=== PATIENT | female | born 1960 | race African-American/Black ===

== ENCOUNTER 2020-08-24 09:35 | Outpatient (CLI) | payer OTHER, SELFPAY ==
[2020-08-24 10:11] LABS: Basophils Percent Auto 0.4 % (0.2-1.2); Eosinophils Absolute Auto 0.1 K/mm3 (0-0.3); Hematocrit 39.9 % (37.0-47.0); Hemoglobin 12.9 g/dL (12.0-15.0); Immature Granulocyte Absolute 0.02 K/mm3 (0.00-0.031); Immature Granulocyte Percent A 0.3 % (0-0.5); Lymphocytes Absolute Auto 2.27 K/mm3 (0.9-3.2); Lymphocytes Percent Auto 32.9 % (18.3-44.2); Mean Corpuscular HGB Conc 32.3 g/dl (32-36); Mean Corpuscular Hemoglobin 29.8 pg (26-34); Mean Corpuscular Volume 92.1 fl (80-100); Monocytes Absolute Auto 0.2 K/mm3 (0.1-0.6); Monocytes Percent Auto 3.2 % (2.6-8.5); Neutrophils Absolute Auto 4.2 K/mm3 (1.3-6.7); Neutrophils Percent Auto 61.2 % (45.5-73.1); Platelet Count Result 324 k/mm3 (150-375); Red Blood Count 4.33 M/mm3 (4.2-5.4); Red Cell Distribution Width 12.1 % (11.5-14.5); White Blood Count 6.9 K/mm3 (4.5-10.0)
[2020-08-24 10:25] LABS: Hemoglobin A1C 6.1 % (<5.7)
[2020-08-24 10:26] LABS: Alanine Aminotransferase 12 U/L (4-35); Albumin Level 4.4 g/dL (3.5-5.1); Alkaline Phosphatase 70 U/L (38-126); Anion Gap 5 mmol/L (8-16); Aspartate Amino Transferase 29 U/L (14-36); Bilirubin,Total 0.8 mg/dL (0.2-1.3); Blood Urea Nitrogen 13 mg/dL (7-17); Calcium 9.4 mg/dL (8.4-10.2); Carbon Dioxide 31 mmol/L (22-30); Chloride 102 mmol/L (98-107); Cholesterol 237 mg/dL (0-200); Estimated Glomerular Filt Rate > 60; Glucose 129 mg/dL (65-105); HDL Direct 79 mg/dL; Potassium 3.4 mmol/L (3.4-5.0); Sodium 138 mmol/L (137-145); Triglycerides 131 mg/dL (<150)
[2020-08-24 10:37] LABS: LDL Cholesterol Direct 110 mg/dL
[2020-08-24 10:38] LABS: Creatinine Urine 261.4 mg/dL
[2020-08-24 10:45] LABS: MALB Creatinine Ratio 3.1 mg/g (0-30); Microalbumin Urine Random 8.2 mg/L (0-16.7)
[2020-08-24 10:57] LABS: Vitamin D 25 Hydroxy 38.5 ng/mL
== END 2020-08-24 09:36 | disposition home or self-care (01) ==
LOC: ANHLAB 09:40
PROVIDERS: PCP Nurse Practitioner; Visit Provider Nurse Practitioner
DX: I10 Essential (primary) hypertension (principal); E11.9 Type 2 diabetes mellitus without complications; E55.9 Vitamin D deficiency, unspecified; E78.5 Hyperlipidemia, unspecified
CPT/HCPCS: 36415; 80053; 80061; 82043; 82306; 83036; 85025

== ENCOUNTER 2021-04-04 02:36 | Day surgery (SDC) | payer OTHER, SELFPAY ==
[2021-03-30 13:37] VITALS: BMI 24.3
--- NOTE | 2021-04-04 07:29 | WPDANESEPPF ---
Anes - Initial Pre Proc Eval Procedure: Operation Date: 04/04/21 11:45 Proposed Procedures p Screening Colonoscopy - Esteban Calderon MD Date/Time: 04/04/21 07:29 Surgeon: Esteban Calderon MD Pre Op Diagnosis: neoplasm screening Patient Data Age: 60 Gender: F Height: 1.68 m Weight: 68.5 kg Allergies Allergy/AdvReac Type Severity Reaction Status Date / Time pineapple Allergy Severe HIVES/ANAPH Verified 03/30/21 13:38 YLAXIS SEA-SALTWATER SEAFOOD Allergy Severe ANAPHYLAXIS Uncoded 03/30/21 13:38 Home Medications Medication Instructions Recorded Confirmed Type aspirin 81 mg tablet,delayed 81 mg PO DAILY 07/27/19 03/30/21 History release ferrous sulfate 325 mg (65 mg 325 mg PO DAILY 07/27/19 03/30/21 History iron) tablet atorvastatin 40 mg tablet 40 mg PO DAILY #90 tablet 03/13/20 03/30/21 Rx ascorbic acid (vitamin C) 500 mg 500 mg PO DAILY 08/16/20 03/30/21 History tablet blood sugar diagnostic #100 ea 08/16/20 03/14/21 Rx blood-glucose meter #1 ea 08/16/20 03/14/21 Rx cholecalciferol (vitamin D3) 50 50 mcg PO DAILY 08/16/20 03/30/21 History mcg (2,000 unit) capsule lancets 28 gauge #100 ea 08/16/20 03/14/21 Rx insulin glargine 100 unit/mL (3 See Rx Instructions .ROUTE 10/10/20 03/30/21 Rx mL) subcutaneous pen .COMPLEX #15 ml lisinopril 10 1 tablet PO DAILY #90 tablet 12/22/20 03/30/21 Rx mg-hydrochlorothiazide 12.5 mg tablet Patient hx anesthesia problems: none Family hx anesthesia problems: none PMFSH Past Medical History Medical History Anemia (~1979) HTN (hypertension) (~2009) Hyperlipidemia (~2014) Type 2 diabetes mellitus (~2014) Family History Family History Sibling Diabetes mellitus Colon polyp Mother Hypertension Cardiovascular disease Social History Social History Smoking status: Never smoker Alcohol intake: never Substance use: never Substance use type: does not use Living arrangements: with family Additional occupation/education comments: [employer] Gender identity (if verbalized by the patient): Female Spiritual care concerns: No Agree to blood products: Yes Anes - Eval Final PreProcedure Day of Procedure 04/04/21 07:29 Patient weight: normal Heart: regular rate and rhythm Lungs: clear to auscultation and normal air movement Airway: Mallampati scale class II Neurological: alert and oriented Last oral intake: >/= 8 hours ASA classification: III Emergent: no Anesthetic plan: proceed Anesthesia type and monitoring: general GIVS and standard monitoring Informed Consent: The patient's anesthetic plan and its attendant risks and benefits were discussed with the patient/family/POA. Questions were solicited and answers provided to the satisfaction of the patient/family/POA.
[2021-04-04 10:54] VITALS: BP 165/78; PULSE 64; RESP 16; TEMP 35.8; O2SAT 99; BMI 23.7
[2021-04-04] MEDS: LACTATED RINGERS 1,000 ML 150 ML IV CONT (11:05)
[2021-04-04 11:18] LABS: Glucose Point of Care 86 mg/dl (65-105)
--- NOTE | 2021-04-04 11:35 | PM.HPGS ---
History of Present Illness History of Present Illness Consent: Risks, benefits, and alternatives have been discussed and questions answered. Patient agrees to proceed with procedure. Chief complaint: neoplasm screening Narrative: Vita Chu is a 60 year old female with colon polyp 5 years ago. Review of Systems Constitutional: Constitutional: Denies headache(s) and Denies weakness Eyes: Eyes: Denies blurry vision ENT: Reports Normal hearing present, Denies headache(s) and Denies neck pain Cardiovascular: Cardiovascular: Denies chest pain and Denies dyspnea Respiratory: Respiratory: Denies dyspnea Gastrointestinal: Gastrointestinal: Reports no additional gastrointestinal complaints Genitourinary: Genitourinary: Denies dysuria Musculoskeletal: Musculoskeletal: Denies neck pain Integumentary/Breasts: Skin/Breast: Denies dry skin Neurologic: Reports Normal hearing present, Denies headache(s) and Denies weakness Psychiatric: Psychiatric: Denies anxiety Endocrine: Endocrine: Denies change in body appearance Hematologic/Lymphatic: Hematologic/Lymphatic: Denies easy bleeding Allergic/Immunologic: Allergic/Immunologic: Denies urticaria PMFSH Past Medical History Medical History (Updated 04/04/21 @ 11:36 by Esteban Calderon MD) Anemia (~1979) Colon cancer screening HTN (hypertension) (~2009) Hyperlipidemia (~2014) Type 2 diabetes mellitus (~2014) Family History Family History Sibling Diabetes mellitus Colon polyp Mother Hypertension Cardiovascular disease Social History Social History Smoking status: Never smoker Alcohol intake: never Substance use: never Substance use type: does not use Living arrangements: with family Additional occupation/education comments: [employer] Gender identity (if verbalized by the patient): Female Spiritual care concerns: No Agree to blood products: Yes Meds Home Medications and Allergies Home Medications Medication Instructions Recorded Confirmed Type aspirin 81 mg tablet,delayed 81 mg PO DAILY 07/27/19 03/30/21 History release ferrous sulfate 325 mg (65 mg 325 mg PO DAILY 07/27/19 03/30/21 History iron) tablet atorvastatin 40 mg tablet 40 mg PO DAILY #90 tablet 03/13/20 03/30/21 Rx ascorbic acid (vitamin C) 500 mg 500 mg PO DAILY 08/16/20 03/30/21 History tablet blood sugar diagnostic #100 ea 08/16/20 03/14/21 Rx blood-glucose meter #1 ea 08/16/20 03/14/21 Rx cholecalciferol (vitamin D3) 50 50 mcg PO DAILY 08/16/20 03/30/21 History mcg (2,000 unit) capsule lancets 28 gauge #100 ea 08/16/20 03/14/21 Rx insulin glargine 100 unit/mL (3 See Rx Instructions .ROUTE 10/10/20 03/30/21 Rx mL) subcutaneous pen .COMPLEX #15 ml lisinopril 10 1 tablet PO DAILY #90 tablet 12/22/20 03/30/21 Rx mg-hydrochlorothiazide 12.5 mg tablet Allergies Allergy/AdvReac Type Severity Reaction Status Date / Time pineapple Allergy Severe HIVES/ANAPH Verified 03/30/21 13:38 YLAXIS SEA-SALTWATER SEAFOOD Allergy Severe ANAPHYLAXIS Uncoded 03/30/21 13:38 Vital Signs Vital Signs - 24 hr 04/04/21 10:54 Temperature 96.5 F L Pulse Rate 64 Respiratory Rate 16 Blood Pressure 165/78 H Pulse Oximetry 99 Exam Const: General: comfortable and no acute distress HENMT: General nose exam: Normal nares present Eyes: General: appearance normal, both eyes and all related structures Neck: Neck: no JVD Resp: Auscultation: clear to auscultation bilaterally Cardio: Rate: regular rate Rhythm: regular rhythm GI: Inspection: non-distended GI Palp: Yes Soft to palpation Skin: General skin exam: normal color Neuro: General: gait normal Speech: normal speech Extrem: General: normal to inspection Psych: Mental Status: mental status grossly normal Assessment and Plan Assessment and plan (1)
[2021-04-04 12:00] VITALS: BP 118/80; PULSE 62; RESP 16; O2SAT 100
[2021-04-04 12:10] VITALS: BP 135/83; PULSE 52; RESP 16; O2SAT 100
[2021-04-04 12:19] VITALS: BP 140/77; PULSE 54; RESP 16; O2SAT 100
== END 2021-04-04 12:28 | disposition home or self-care (01) ==
PROVIDERS: PCP Nurse Practitioner; Visit Provider Internal Medicine Gastroenterology
PROC: 0DJD8ZZ Inspection of Lower Intestinal Tract, Via Natural or Artificial Opening Endoscopic (ICD-10-PCS; CPT 45378; principal; 2021-04-04 11:45)
DX: Z12.11 Encounter for screening for malignant neoplasm of colon (principal); K57.30 Diverticulosis of large intestine without perforation or abscess without bleeding; K64.8 Other hemorrhoids; Z86.010 Personal history of colon polyps; E11.9 Type 2 diabetes mellitus without complications; I10 Essential (primary) hypertension; E78.5 Hyperlipidemia, unspecified; D64.9 Anemia, unspecified; Z79.82 Long term (current) use of aspirin; Z79.4 Long term (current) use of insulin
CPT/HCPCS: 45378; 82948; J2001; J2704; J7120

== ENCOUNTER 2021-04-18 08:55 | Outpatient (CLI) | payer OTHER, SELFPAY ==
--- NOTE | ~2021-04-18 | DEXA_ITS ---
Bone Density Report Name: Vita Kiser Age: 60 Sex: Female Ethnicity: Black Date of : 1960 Indication: postmenopausal; Referring Provider: Shefali Du Study: Bone densitometry was performed. Exam Date: April 18, 2021 Accession number: [id number] Bone Density: Region BMD T-score Z-score Classification AP Spine (L1-L4) 1.018 -0.3 0.6 Normal Femoral Neck (Left) 0.697 -1.4 -0.6 Osteopenia Total Hip (Left) 0.870 -0.6 -0.2 Normal Total Hip Bilateral Avg 0.835 -0.9 -0.4 Normal Femoral Neck (Right) 0.692 -1.4 -0.7 Osteopenia Total Hip (Right) 0.799 -1.2 -0.6 Osteopenia World Health Organization criteria for BMD impression classify patients as: Normal (T-score at or above -1.0), Osteopenia (T-score between -1.0 and -2.5), or Osteoporosis (T-score at or below -2.5). 10-year Fracture Risk(1): Major Osteoporotic Fracture 3.7% Hip Fracture 0.3% Reported Risk Factors: [place] ([place]), Neck BMD=0.692, BMI=24.7 (1) FRAX(R) Version 3.08. Fracture probability calculated for an untreated patient. Fracture probability may be lower if the patient has received treatment. Clinical Information Provided by Patient: Has used the following medications: Vitamin D, Calcium Patient maximum height was 66 Menopause Age: 46 No regular weight bearing exercise Drinks caffeinated beverages Onset of menses at age 12 Number of children 2 Impression: The patient has low bone mass, based on the Left Femoral Neck T-score. The patient has an estimated ten-year risk of hip fracture of 0.3% and an estimated ten-year risk of major fracture of 3.7%, based on the WHO FRAX algorithm. Discussion: BONE DENSITY IS LOW AT ONE OR MORE SKELETAL SITES. This patient's lowest T-score is low at one or more skeletal sites. It meets the World Health Organization's (WHO) criteria for ?low bone mass? (T-score between -1.0 and -2.5). The patient's 10-year risk of fracture as calculated by FRAX is less than the threshold where pharmacological therapy is recommended by the National Osteoporosis Foundation (NOF). However, all treatment decisions require clinical judgment and consideration of individual patient factors, including patient preferences, comorbidities, previous drug use, risk factors not captured in the FRAX model (e.g., frailty, falls, vitamin D deficiency, increased bone turnover, interval significant decline in bone density) and possible under or overestimation of fracture risk by FRAX. The patient should follow a healthful lifestyle (good nutrition with adequate calcium and vitamin D, and appropriate weight-bearing exercise). Follow-Up: Consider repeating this study in 2 to 3 years to reassess this patient's status, or sooner if there is some new clinical indication. Reported by: KYLER on 04/18/2021 9:26:00 AM.
--- NOTE | ~2021-04-18 | MM_ITS ---
EXAMINATION: MM screening leon BI w darryl HISTORY: Screening TECHNIQUE: Craniocaudal and mediolateral oblique 3-D tomosynthesis images were obtained and synthetic 2-D images were generated. CAD analysis was submitted and interpreted. COMPARISON: No prior mammogram is available for comparison at this institution. BREAST PARENCHYMAL COMPOSITION: There are scattered areas of fibroglandular density. FINDINGS: There are masses in the upper outer quadrant of the right breast involving the anterior and posterior thirds of the breasts. There are benign bilateral breast calcifications. There are no susp icious masses, calcifications or architectural distortion in the left breast to suggest malignancy. IMPRESSION: 1. Right breast masses, upper outer quadrant. 2. Recommend comparison to previous outside mammograms. BI-RADS Category 0: Incomplete: Needs additional imaging evaluation. Reviewed, dictated and finalized at location A.
== END 2021-04-18 08:56 | disposition home or self-care (01) ==
PROVIDERS: PCP Nurse Practitioner; Visit Provider Nurse Practitioner
DX: Z12.31 Encounter for screening mammogram for malignant neoplasm of breast (principal); Z78.0 Asymptomatic menopausal state; R92.8 Other abnormal and inconclusive findings on diagnostic imaging of breast; M85.852 Other specified disorders of bone density and structure, left thigh; M85.851 Other specified disorders of bone density and structure, right thigh
CPT/HCPCS: 77063; 77067; 77080

== ENCOUNTER 2022-05-02 08:49 | Outpatient (CLI) | payer OTHER, SELFPAY ==
--- NOTE | 2022-05-02 09:10 | EST_ITS ---
Patient Info Name: Vita Chu Age: 61 years : 1960 Gender: Female Ht: 66 in Wt: 152 lbs BSA: 1.80 m2 Exam Date: 05/02/2022 10:13 AM Exam Location: [facility] Stress Patient Status: Outpatient Admit Date: 05/02/2022 Staff Ordering Physician: Shefali Du NP Attending Provider: Shefali Du NP Exercise Technologist: Anoop Nowak RDCS, RT Exercise Physician: Marcus Sunshine DO Exam Type: CA stress test treadmill Study Info A treadmill exercise stress test was performed. Summary 1. 1. Negative Lexx exercise stress test for ischemic ST changes by ECG criteria. 2. 2. Poor functional capacity, achieving 4.7 METs of workload. 3. 3. Rapid HR response to exercise. 4. 4. Baseline hypertension. 5. 5. Appropriate HR recovery at 1 minute post exercise. 6. 6. No imaging with stress testing. 7. 7. Patient informed of the above results. Protocol: Lexx Stress ECG Details Stage: REST Duration (min): 2 min : 19 sec Speed (mph): 0.0 Grade (%): 0 HR (bpm): 79 SBP (mmHg): 164 DBP (mmHg): 93 METS: --- Stage: REST Duration (min): 2 min : 41 sec Speed (mph): 0.0 Grade (%): 0 HR (bpm): 82 SBP (mmHg): 164 DBP (mmHg): 93 METS: --- Stage: STAGE 1 Duration (min): 1 min : 0 sec Speed (mph): 1.7 Grade (%): 10 HR (bpm): 121 SBP (mmHg): 164 DBP (mmHg): 93 METS: --- Stage: STAGE 1 Duration (min): 2 min : 0 sec Speed (mph): 1.7 Grade (%): 10 HR (bpm): 142 SBP (mmHg): 164 DBP (mmHg): 93 METS: --- Stage: STAGE 1 Duration (min): 2 min : 59 sec Speed (mph): 1.7 Grade (%): 10 HR (bpm): 150 SBP (mmHg): 164 DBP (mmHg): 93 METS: --- Stage: RECOVERY Duration (min): 1 min : 0 sec Speed (mph): 0.0 Grade (%): 0 HR (bpm): 123 SBP (mmHg): 183 DBP (mmHg): 90 METS: --- Stage: RECOVERY Duration (min): 2 min : 0 sec Speed (mph): 0.0 Grade (%): 0 HR (bpm): 98 SBP (mmHg): 183 DBP (mmHg): 90 METS: --- Stage: RECOVERY Duration (min): 3 min : 0 sec Speed (mph): 0.0 Grade (%): 0 HR (bpm): 92 SBP (mmHg): 183 DBP (mmHg): 90 METS: --- Stage: RECOVERY Duration (min): 3 min : 25 sec Speed (mph): 0.0 Grade (%): 0 HR (bpm): 93 SBP (mmHg): 178 DBP (mmHg): 91 METS: --- Rest HR: 82 bpm Peak HR: 152 bpm Rest Sys BP: 164 mmHg Peak Sys BP: 183 mmHg Max Pred HR: 157 bpm % Max Pred HR: 97 % Target HR: 133 bpm Max RPP: 27,816 bpm*mmHg Jacinto Score: -47 Termination Reason: Reached target heart rate or workload Cardiac Symptoms: Shortness of breath Max ST Seg Deviation: 9.90 mm Total Time: 2 min : 59 sec Rest López BP: 93 mmHg Peak López BP: 90 mmHg Angina Score: None Total METS: 4.7 Resting ECG Sinus rhythm. Stress ECG No ST changes. Arrhythmias None. Report Signatures
[2022-05-02 09:48] LABS: Basophils Percent Auto 0.5 % (0.2-1.2); Eosinophils Absolute Auto 0.2 K/mm3 (0-0.3); Eosinophils Percent Auto 2.2 % (0-4.4); Hematocrit 37.7 % (37.0-47.0); Immature Granulocyte Absolute 0.02 K/mm3 (0.00-0.031); Immature Granulocyte Percent A 0.2 % (0-0.5); Lymphocytes Absolute Auto 1.96 K/mm3 (0.9-3.2); Lymphocytes Percent Auto 23.7 % (18.3-44.2); Mean Corpuscular HGB Conc 31.8 g/dl (32-36); Mean Corpuscular Hemoglobin 29.8 pg (26-34); Mean Corpuscular Volume 93.5 fl (80-100); Mean Platelet Volume 10.7 fl (7.4-10.4); Monocytes Absolute Auto 0.3 K/mm3 (0.1-0.6); Neutrophils Absolute Auto 5.7 K/mm3 (1.3-6.7); Neutrophils Percent Auto 69.4 % (45.5-73.1); Platelet Count Result 319 k/mm3 (150-375); Red Blood Count 4.03 M/mm3 (4.2-5.4); Red Cell Distribution Width 11.7 % (11.5-14.5); White Blood Count 8.3 K/mm3 (4.5-10.0)
[2022-05-02 10:25] LABS: LDL Cholesterol Direct 129 mg/dL
[2022-05-02 10:39] LABS: Alanine Aminotransferase 13 U/L (6-35); Albumin Level 4.7 g/dL (3.5-5.1); Alkaline Phosphatase 105 U/L (38-126); Aspartate Amino Transferase 22 U/L (14-36); Bilirubin,Total 0.6 mg/dL (0.2-1.3); Blood Urea Nitrogen 17 mg/dL (7-17); Calcium 9.4 mg/dL (8.4-10.2); Carbon Dioxide 26 mmol/L (22-30); Cholesterol 276 mg/dL (0-200); Estimated Glomerular Filt Rate > 60; Glucose 307 mg/dL (65-110); HDL Direct 58 mg/dL; Triglycerides 313 mg/dL (<150)
[2022-05-02 10:53] LABS: Anion Gap 11 mmol/L (8-16); Chloride 100 mmol/L (98-107); Potassium 4.2 mmol/L (3.4-5.0); Sodium 137 mmol/L (137-145)
== END 2022-05-02 08:50 | disposition home or self-care (01) ==
PROVIDERS: PCP Family Medicine; Visit Provider Nurse Practitioner
DX: E11.9 Type 2 diabetes mellitus without complications (principal); E78.5 Hyperlipidemia, unspecified; R07.89 Other chest pain
CPT/HCPCS: 36415; 80053; 80061; 83036; 85025; 93017

== ENCOUNTER 2022-06-26 08:42 | Outpatient (CLI) | payer OTHER, SELFPAY ==
--- NOTE | ~2022-06-26 | MM_ITS ---
EXAMINATION: MM screening leon BI w darryl HISTORY: Screening mammogram TECHNIQUE: Craniocaudal and mediolateral oblique 3-D tomosynthesis images were obtained and synthetic 2-D images were generated. CAD analysis was submitted and interpreted. COMPARISON: 04/18/2021, 07/25/2016 BREAST PARENCHYMAL COMPOSITION: There are scattered areas of fibroglandular density. FINDINGS: No suspicious mass, calcification, or architectural distortion are identified in either osvaldo ast to suggest malignancy. There has been no suspicious interval change. IMPRESSION: 1. No mammographic evidence of malignancy. 2. Recommend routine screening mammography in one year. BI-RADS Category 1: Negative Reviewed, dictated and finalized at location A. EGE SCOUTING COORDINATOR
== END 2022-06-26 08:43 | disposition home or self-care (01) ==
LOC: ANHIMG 08:43
PROVIDERS: PCP Family Medicine; Visit Provider Nurse Practitioner
DX: Z12.31 Encounter for screening mammogram for malignant neoplasm of breast (principal)
CPT/HCPCS: 77063; 77067

== ENCOUNTER 2022-09-03 07:07 | Emergency (ER) | payer OTHER, SELFPAY ==
[2022-09-03] VITALS (29 sets, daily range): BP systolic 134–164; BP diastolic 76–95; PULSE 60–123; RESP 11–24; TEMP 36.4; O2SAT 95–100
--- NOTE | ~2022-09-03 | CT_ITS ---
EXAMINATION: CT brain wo con DATE: 09/03/2022 07:57 INDICATION: Dizziness. TECHNIQUE: Computed tomography (CT) of the head was performed without intravenous contrast. The mA wa s adjusted according to patient size. Iterative reconstruction technique was employed. The dose-lengt h product was 529.67 mGy-cm. COMPARISON: None FINDINGS: There are scattered areas of low attenuation in the cerebral white matter. There is no intr acranial hemorrhage, acute infarction, or abnormal intracranial mass lesion. The ventricles are sandra l in size. The orbits are normal. There is mild mucosal thickening in the paranasal sinuses. The mast oid air cells are normal. IMPRESSION: 1. Mild nonspecific cerebral white matter disease, which likely represents chronic small vessel ische valorie disease. Reviewed, dictated and finalized at location A. POUND ATTENDANT IMPRESSION: 1. Mild nonspecific cerebral white matter disease, which likely represents audit intern praveena small vessel ischemic disease.
[2022-09-03 07:28] LABS: Glucose Point of Care 212 mg/dl (65-105)
[2022-09-03 07:33] LABS: Basophils Percent Auto 0.5 % (0.2-1.2); Eosinophils Absolute Auto 0.2 K/mm3 (0-0.3); Eosinophils Percent Auto 2.9 % (0-4.4); Hemoglobin 12.4 g/dL (12.0-15.0); Immature Granulocyte Absolute 0.02 K/mm3 (0.00-0.031); Immature Granulocyte Percent A 0.3 % (0-0.5); Lymphocytes Absolute Auto 1.32 K/mm3 (0.9-3.2); Lymphocytes Percent Auto 20.4 % (18.3-44.2); Mean Corpuscular HGB Conc 31.8 g/dl (32-36); Mean Corpuscular Volume 94.2 fl (80-100); Mean Platelet Volume 10.1 fl (7.4-10.4); Monocytes Absolute Auto 0.2 K/mm3 (0.1-0.6); Monocytes Percent Auto 3.7 % (2.6-8.5); Neutrophils Absolute Auto 4.7 K/mm3 (1.3-6.7); Neutrophils Percent Auto 72.2 % (45.5-73.1); Platelet Count Result 376 k/mm3 (150-375); Red Blood Count 4.14 M/mm3 (4.2-5.4); Red Cell Distribution Width 11.9 % (11.5-14.5); White Blood Count 6.5 K/mm3 (4.5-10.0)
--- NOTE | 2022-09-03 07:43 | ED.GENADULT ---
HPI - General Adult General Chief complaint: Dizziness Stated complaint: Dizziness, HTN? Time Seen by Provider: 09/03/22 07:16 History of Present Illness HPI narrative: 62-year-old female presented to the emergency department for evaluation of onset of dizziness this morning. Patient states when she woke up this morning she was having the symptoms of dizziness. Patient describes it as a spinning sensation. Patient states symptoms were present when she woke up this morning patient denies any recent coughs colds fevers or injuries. Patient denies any prior history of stroke. Patient states that when she woke up the symptoms were worse but did improve enough for her to drive to work. On arrival to work patient states that the symptoms did begin to worsen again. Patient states symptoms are worsened when she turns her head or looks up. Patient denies any associated numbness or weakness with this. Patient denies any ear pain. Related Data Home Medications Medication Instructions Recorded Confirmed aspirin 81 mg tablet,delayed 81 mg PO DAILY 07/27/19 04/19/22 release (Adult Aspirin Regimen) ferrous sulfate 325 mg (65 mg 325 mg PO DAILY 07/27/19 04/19/22 iron) tablet ascorbic acid (vitamin C) 500 mg 500 mg PO DAILY 08/16/20 04/19/22 tablet cholecalciferol (vitamin D3) 50 50 mcg PO DAILY 08/16/20 04/19/22 mcg (2,000 unit) capsule Allergies Allergy/AdvReac Type Severity Reaction Status Date / Time pineapple Allergy Severe HIVES/ANAPH Verified 06/26/22 11:28 YLAXIS metformin Allergy Unknown Verified 06/26/22 11:28 Sulfa (Sulfonamide Allergy Unknown Verified 06/26/22 11:28 Antibiotics) SEA-SALTWATER SEAFOOD Allergy Severe ANAPHYLAXIS Uncoded 06/26/22 11:28 Review of Systems Review of Systems: CONSTITUTIONAL: Denies fever, chills, or sweats. EYES: Denies visual changes, redness, or discharge. ENT: Denies rhinorrhea, congestion, sore throat, or otalgia. CARDIOVASCULAR: Denies chest pain, palpitations, or edema. RESPIRATORY: Denies cough or dyspnea. GASTROINTESTINAL: Denies abdominal pain, nausea, vomiting, or diarrhea. GENITOURINARY: Denies dysuria or hematuria. SKIN: Denies rash or itching. MUSCULOSKELETAL: Denies back pain, joint pain, or myalgia. NEUROLOGIC: See HPI PMFSH Past Medical History Medical History Anemia (~1979) HTN (hypertension) (~2009) Hyperlipidemia (~2014) Type 2 diabetes mellitus (~2014) Family History Family History (System 06/26/22 @ 11:28 by Angy Chopra) Sibling Diabetes mellitus Colon polyp Mother Hypertension Cardiovascular disease Sibling Family history of thyroid disease Malignant neoplasm of prostate Diabetes mellitus, Onset Age: 60 Carcinoma of colon, Onset Age: 60 Father Hypertension Family history of lung cancer Mother Hypertension, Onset Age: 52 Family history of coronary artery disease Family history of cardiovascular disease, Onset Age: 52 Social History Social History (System 06/26/22 @ 11:28 by Angy Chopra) Smoking status: Never smoker Second hand tobacco smoke exposure: No Alcohol intake: never Substance use: never Substance use type: does not use Living arrangements: with family Occupation/Education: occupation Additional occupation/education comments: [employer] Gender identity (if verbalized by the patient): Female Spiritual care concerns: No Agree to blood products: Yes Exam Narrative: APPEARANCE: Well appearing, no pain, no distress, well-nourished. HEAD: normocephalic, atraumatic. EYES: PERRLA/EOMI, conjunctivae clear. Visual mascorro intact NOSE: Normal no drainage EARS:TMS clear with good light reflex. Cerumen and right ear. No mastoid tenderness bilaterally THROAT: Pharynx clear, no exudate. NECK: Supple. No adenopathy, no masses. RESPIRATORY: Airway patent, respirations nonlabored. Clear to auscultation bila
[2022-09-03 07:44] LABS: Alanine Aminotransferase 14 U/L (6-35); Albumin Level 4.8 g/dL (3.5-5.1); Alkaline Phosphatase 100 U/L (38-126); Anion Gap 10 mmol/L (8-16); Aspartate Amino Transferase 27 U/L (14-36); Bilirubin,Total 0.6 mg/dL (0.2-1.3); Blood Urea Nitrogen 17 mg/dL (7-17); Carbon Dioxide 26 mmol/L (22-30); Chloride 103 mmol/L (98-107); Estimated CRCL calculation 52 ml/min; Estimated Glomerular Filt Rate > 60; Glucose 180 mg/dL (65-110); Potassium 3.6 mmol/L (3.4-5.0); Sodium 139 mmol/L (137-145)
[2022-09-03] MEDS: MECLIZINE HCL 25 MG TABLET PO (08:32)
[2022-09-03] MEDS: ONDANSETRON INJ 4 MG/2 ML VIAL IV PUSH (10:03)
[2022-09-03] MEDS: diazePAM (*CRX) 5 MG TABLET 2.5 MG PO (11:04)
[2022-09-03] MEDS: diphenhydrAMINE HCl INJ 50 MG/ML VIAL 25 MG IV PUSH (11:04)
== END 2022-09-03 13:06 | disposition home or self-care (01) ==
PROVIDERS: Emergency Provider Emergency Medicine; PCP Family Medicine
DX: R42 Dizziness and giddiness (principal); I10 Essential (primary) hypertension; E78.5 Hyperlipidemia, unspecified; E11.9 Type 2 diabetes mellitus without complications; Z79.82 Long term (current) use of aspirin; Z79.4 Long term (current) use of insulin; R90.82 White matter disease, unspecified
CPT/HCPCS: 36415; 70450; 80053; 82948; 85025; 96374; 96375; 99284; A9270; J1200; J2405

== ENCOUNTER 2022-09-10 10:38 | Outpatient (CLI) | payer OTHER, SELFPAY ==
[2022-09-10 19:20] LABS: Hemoglobin A1C 6.9 % (<5.7)
[2022-09-10 20:33] LABS: Creatinine Urine 169.9 mg/dL
[2022-09-10 20:38] LABS: MALB Creatinine Ratio 6.5 mg/g (0-30)
== END 2022-09-10 10:39 | disposition home or self-care (01) ==
LOC: ANHGOSHLAB 10:40
PROVIDERS: PCP Family Medicine; Visit Provider Nurse Practitioner
DX: E11.9 Type 2 diabetes mellitus without complications (principal)
CPT/HCPCS: 36415; 82043; 83036

== ENCOUNTER 2022-11-20 11:31 | Outpatient (CLI) | payer OTHER, SELFPAY ==
[2022-11-20 15:13] LABS: Basophils Percent Auto 0.7 % (0.2-1.2); Eosinophils Absolute Auto 0.3 K/mm3 (0-0.3); Eosinophils Percent Auto 4.7 % (0-4.4); Hematocrit 37.4 % (37.0-47.0); Hemoglobin 12.3 g/dL (12.0-15.0); Immature Granulocyte Absolute 0.01 K/mm3 (0.00-0.031); Immature Granulocyte Percent A 0.2 % (0-0.5); Lymphocytes Percent Auto 32.2 % (18.3-44.2); Mean Corpuscular HGB Conc 32.9 g/dl (32-36); Mean Corpuscular Hemoglobin 29.5 pg (26-34); Mean Corpuscular Volume 89.7 fl (80-100); Mean Platelet Volume 10.7 fl (7.4-10.4); Monocytes Absolute Auto 0.2 K/mm3 (0.1-0.6); Monocytes Percent Auto 3.9 % (2.6-8.5); Neutrophils Absolute Auto 3.3 K/mm3 (1.3-6.7); Neutrophils Percent Auto 58.3 % (45.5-73.1); Platelet Count Result 355 k/mm3 (150-375); Red Blood Count 4.17 M/mm3 (4.2-5.4); Red Cell Distribution Width 11.7 % (11.5-14.5); White Blood Count 5.6 K/mm3 (4.5-10.0)
[2022-11-20 15:15] LABS: Alanine Aminotransferase 12 U/L (6-35); Albumin Level 4.2 g/dL (3.5-5.1); Alkaline Phosphatase 117 U/L (38-126); Anion Gap 5 mmol/L (8-16); Aspartate Amino Transferase 23 U/L (14-36); Bilirubin,Total 0.8 mg/dL (0.2-1.3); Blood Urea Nitrogen 10 mg/dL (7-17); Calcium 9.3 mg/dL (8.4-10.2); Carbon Dioxide 28 mmol/L (22-30); Chloride 103 mmol/L (98-107); Cholesterol 319 mg/dL (0-200); Estimated Glomerular Filt Rate > 60; Glucose 278 mg/dL (65-110); HDL Direct 60 mg/dL; Potassium 3.8 mmol/L (3.4-5.0); Sodium 136 mmol/L (137-145); Triglycerides 166 mg/dL (<150)
[2022-11-20 15:26] LABS: LDL Cholesterol Direct 183 mg/dL
[2022-11-20 15:53] LABS: Vitamin D 25 Hydroxy 25.5 ng/mL
[2022-11-20 16:06] LABS: Thyroid Stimulating Hormone Reflex 0.481 uIU/mL (0.465-4.68)
[2022-11-20 16:19] LABS: Hemoglobin A1C 11.8 % (<5.7)
[2022-11-20 16:54] LABS: Creatinine Urine 240.5 mg/dL
[2022-11-20 16:58] LABS: MALB Creatinine Ratio 7.7 mg/g (0-30); Microalbumin Urine Random 18.5 mg/L (0-16.7)
== END 2022-11-20 11:32 | disposition home or self-care (01) ==
LOC: ANHGOSHLAB 11:32
PROVIDERS: PCP Family Medicine; Visit Provider Family Medicine
DX: Z00.00 Encounter for general adult medical examination without abnormal findings (principal); I10 Essential (primary) hypertension; E11.9 Type 2 diabetes mellitus without complications; E78.5 Hyperlipidemia, unspecified; E55.9 Vitamin D deficiency, unspecified; E53.8 Deficiency of other specified B group vitamins
CPT/HCPCS: 36415; 80053; 80061; 82043; 82306; 82607; 83036; 84443; 85025

== ENCOUNTER → 2022-11-20 11:50 | Outpatient (CLI) | payer OTHER, SELFPAY ==
--- NOTE | ~2022-11-20 | XR_ITS ---
Left Knee Technique: AP, lateral, and sunrise views were obtained. Clinical History: Pain Findings: No fracture or dislocation is seen. Osseous alignment is anatomic. There is mild degenerati ve change of the medial joint line/medial compartment, with mild osteophyte formation. Soft tissues a re unremarkable. No joint effusion is seen. Impression: Mild medial compartment degenerative change, as above. Reviewed, dictated and finalized at location M. Impression: Mild medial compartment degenerative change, as above.
== END ==
PROVIDERS: PCP Family Medicine; Visit Provider Family Medicine
DX: M25.562 Pain in left knee (principal); G89.29 Other chronic pain
CPT/HCPCS: 73562

== ENCOUNTER → 2023-04-23 08:03 | Outpatient (CLI) | payer OTHER, SELFPAY ==
--- NOTE | ~2023-04-23 | US_ITS ---
Thyroid ultrasound. Clinical History: Nontoxic goiter Findings: Real-time sonography of the thyroid gland was performed. The right lobe measures 4.9 x 2.2 x 2.0 cm. The left lobe measures 4.9 x 1.2 x 1.6 cm. The isthmus is 4 mm in AP diameter. At the right lower pole, there is a 1.8 x 1.7 x 1.7 cm predominantly solid nodule with small cystic c omponent, heterogeneous though largely hyperechoic. At the left upper pole, there is a 1.2 x 0.8 x 1.4 cm somewhat heterogeneous nodule. Impression: Thyroid nodules, as detailed above. One-year follow-up ultrasound recommended to reassess. Reviewed, dictated and finalized at location . Impression: Thyroid nodules, as detailed above. One-year follow-up ultrasound recommended t o reassess.
== END ==
PROVIDERS: PCP Family Medicine; Visit Provider Family Medicine
DX: E04.2 Nontoxic multinodular goiter (principal)
CPT/HCPCS: 76536

== ENCOUNTER 2023-04-23 08:23 | Outpatient (CLI) | payer OTHER, SELFPAY ==
[2023-04-23 19:32] LABS: Alanine Aminotransferase 12 U/L (6-35); Albumin Level 4.4 g/dL (3.5-5.1); Alkaline Phosphatase 82 U/L (38-126); Anion Gap 7 mmol/L (8-16); Aspartate Amino Transferase 25 U/L (14-36); Bilirubin,Total 0.7 mg/dL (0.2-1.3); Blood Urea Nitrogen 12 mg/dL (7-17); Calcium 9.4 mg/dL (8.4-10.2); Carbon Dioxide 25 mmol/L (22-30); Chloride 103 mmol/L (98-107); Cholesterol 288 mg/dL (0-200); Estimated Glomerular Filt Rate > 60; Glucose 238 mg/dL (65-110); HDL Direct 74 mg/dL; Potassium 4.1 mmol/L (3.4-5.0); Sodium 135 mmol/L (137-145); Triglycerides 174 mg/dL (<150)
[2023-04-23 19:44] LABS: LDL Cholesterol Direct 142 mg/dL
[2023-04-23 19:46] LABS: Hemoglobin A1C 6.6 % (<5.7)
== END 2023-04-23 08:24 | disposition home or self-care (01) ==
LOC: ANHGOSHLAB 08:24
PROVIDERS: PCP Family Medicine; Visit Provider Family Medicine
DX: E11.9 Type 2 diabetes mellitus without complications (principal); I10 Essential (primary) hypertension; E78.5 Hyperlipidemia, unspecified
CPT/HCPCS: 36415; 80053; 80061; 83036

== ENCOUNTER 2023-07-09 09:28 | Outpatient (CLI) | payer OTHER, SELFPAY ==
--- NOTE | ~2023-07-09 | XR_ITS ---
Left Shoulder Technique: AP and axillary views were obtained. Clinical History: Pain Findings: No fracture or dislocation is seen. Osseous alignment is anatomic. The glenohumeral and acr omioclavicular joint spaces are preserved. Soft tissues are unremarkable. Impression: Unremarkable left shoulder radiographs. Reviewed, dictated and finalized at [facility]. ATIONS BUSINESS PARTNER Impression: Unremarkable left shoulder radiographs.
--- NOTE | ~2023-07-09 | XR_ITS ---
AP view of the pelvis and AP and lateral views of the left hip Clinical history: Pain Findings: No acute fracture or dislocation is seen. Osseous alignment is anatomic. Bilateral hip and SI joint spaces are preserved. Soft tissues are unremarkable. Impression: No significant abnormality is seen. Reviewed, dictated and finalized at [facility]. RAM EVALUATION CONSULTANT Impression: No significant abnormality is seen.
== END 2023-07-09 09:29 | disposition home or self-care (01) ==
PROVIDERS: PCP Family Medicine; Visit Provider Orthopaedic Surgery
DX: M25.552 Pain in left hip (principal); M25.512 Pain in left shoulder
CPT/HCPCS: 73030; 73502

== ENCOUNTER 2023-08-13 08:01 | Outpatient (RCR) | payer OTHER, SELFPAY ==
--- NOTE | 2023-08-13 09:04 | OPREHPOC ---
Outpatient Therapy Plan of Care This is a Multidisciplinary Plan of Care that may contain components documented by all disciplines (PT, OT, and ST.) PT Problem 1 PT Problem #1 Knowledge Deficit PT Goal 1 Goal * indep with HEP PT Problem 2 PT Problem #2 Pain PT Goal 1 Goal *monitor pain in L hip and knee with increase activity level PT Problem 3 PT Problem #3 Impaired Strength PT Goal 1 Goal increase strength of R LE: 1* single leg standing x 10 seconds 2* sitting ankle DF to 10' x 15 reps 3* stand to sit with good control and no plopping x 5 reps PT Problem 4 PT Problem #4 Impaired Functional Mobil PT Goal 1 Goal improve gait and balance skills, for indep with mobility and return to work 1* Wasserman balance score of 54/56 2* 2 minute walking test distance of 350' 3* 5 reps sit/stand time of 15 seconds 4* pt report no falls 5* use of assistive device as indicated for improved indep 6* up/down 4 steps without use of hand railing, indep
--- NOTE | 2023-08-13 09:04 | PTOPEVAL1 ---
Assessment and note entered by Funmi Calvo, PT Evaluation Information Assessment Status Evaluation Diagnosis s/p CVA with R weakness Onset 07-28-23 Subjective Information had in hospital therapy, have HEP from them: supine SLR, standing and walking; R leg and arm weak; R hand dominant; get tired and have to sit and rest at home with trying to do things, about 10-20 minutes get tired; used a cane & walker in the hospital, have walker at home --not want to use and get dependent on it; is doing R arm and hand exercises; have not had any falls; at home, does hold onto furniture; have not driven since CVA; pt voiced frustration about her weakness, decreased activity level and having to ask her children to help her with transportation. 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 She has a history of L hip and knee pain. With the evaluation, she has decreased strength and motor control of R LE; 5 reps sit/stand time of 19 seconds; Wasserman balance score of 43/56; 2 minute walking test distance of 280' and on 4 steps requires one hand railing with single step pattern. Skilled PT services are indicated to increase R LE strength and motor control, gait and balance skills, with education for home exercises, for return to prior level of functioning and working at [employer]. Plan of Care Interventions Neuro Re-education,Patient/Caregiver Education, Therapeutic Activities,Therapeutic Exercise,Self- Car
--- NOTE | 2023-09-09 16:23 | PCPTNOTE ---
clerical staff report scheduling issues with pt....they left messages with her to schedule and not able to reach her.
--- NOTE | 2023-09-11 13:18 | PTOPDC ---
Assessment and note entered by Funmi Calvo, PT Discharge Information Assessment Status Discharge - Pt Not Present Diagnosis s/p CVA with R weakness Onset 07-28-23 Assessment PT Clinical Summary Vita attended the PT evaluation on August 13 and did not return for any treatments. Therefore, she will be discharged from PT at this time. The goals were not addressed. Plan of Care PT Services Indicated No
== END 2023-09-11 14:25 | disposition home or self-care (01) ==
LOC: ANHPT 08:01
PROVIDERS: PCP Internal Medicine
DX: I63.9 Cerebral infarction, unspecified (principal)
CPT/HCPCS: 97110; 97161; 97530

== ENCOUNTER 2024-10-25 11:05 | Inpatient (IN) | payer MEDICARE, SELFPAY ==
[2024-10-25] VITALS (39 sets, daily range): BP systolic 167–210; BP diastolic 85–178; PULSE 67–88; RESP 11–29; TEMP 36.6–36.8; O2SAT 92–100; BMI 23.6
--- NOTE | ~2024-10-25 | MR_ITS ---
MR brain/brain stem wo con Ordering provider: Evonne Becker PA-C History: 64 years Female with . Cerebrovascular accident (right-sided weakness) . Comparison: CT done on October 25, 2024. Technique: MRI brain was performed without contrast. FINDINGS: BONES: Normal. CRANIOCERVICAL JUNCTION: normal. PITUITARY: Normal. MAJOR INTRACRANIAL VESSELS: Normal flow void. OPTIC NERVES AND CRANIAL NERVES VII AND VIII COMPLEXES: Grossly normal. BRAIN PARENCHYMA AND CSF SPACES: Diffusion restriction is seen in the left side paramedian area of th e carissa suggestive of acute infarct. Mild nonspecific T2 white matter hyperintensities are seen in a b ilateral periventricular and deep white matter distribution which are likely related to chronic ische valorie small vessel disease. Mild diffuse cortical atrophy. The cerebellum is normal. No acute or chroni c intracranial hemorrhage. No extra axial fluid collections. . No midline shift or mass effect. PARANASAL SINUSES: Normal. MASTOIDS: Normal SUPERFICIAL/SURROUNDING SOFT TISSUES: Normal. IMPRESSION: 1. Acute infarct in the left paramedian area of the carissa. 2. No other acute abnormality seen. Reviewed, dictated and finalized at location A.
--- NOTE | ~2024-10-25 | CT_ITS ---
CTA brain carotid Ordering provider: Castillo Potter MD History: . right sided weakness . Comparison: September 03, 2022 Technique: CT angiogram head and neck was performed following timed intravenous injection of contrast . Thin slice axial images and reformatted coronal images were obtained. Three dimensional reformatted images of the brain were also obtained using a Twitter workstation. Radiation reduction technique ut ilized.The dose-length product was 1390.85 mGy-cm. 100 mL Omnipaque 350 was given IV. FINDINGS: HEAD: --ANTERIOR AND MIDDLE CEREBRAL ARTERIES AND BRANCHES: Normal caliber and contour. --INTERNAL CAROTID ARTERIES: Mild atheromatous disease but no significant stenosis. No occlusion. --BASILAR ARTERY AND BRANCHES: Normal caliber and contour. No atheromatous disease. --POSTERIOR CEREBRAL ARTERIES: Normal caliber and contour --POSTERIOR COMMUNICATING ARTERIES: Not visualized which is probably related to congenital absence or small size. --ANEURYSM: None visualized. --BRAIN: Old infarct in the left centrum semiovale. Old infarct in the right paraventricular posterio r frontal cysts area --BONES AND SUPERFICIAL SOFT TISSUES: Normal. --PARANASAL SINUSES AND MASTOIDS: Well aerated. NECK: --RIGHT CERVICAL CAROTID SYSTEM: Normal caliber and contour. Percent stenosis per NASCET criteria is 0%. No carotid dissection. Otherwise, no significant atheromatous disease or stenosis of the cervica l carotid system. --LEFT CERVICAL CAROTID SYSTEM: Mild atheromatous disease of the carotid bulb and proximal internal c arotid artery without significant stenosis. Percent stenosis per NASCET criteria is 6%. No carotid d issection. Otherwise, no significant atheromatous disease or stenosis of the cervical carotid system. --VERTEBRAL ARTERIES: Normal caliber and contour. --VISUALIZED AORTIC ARCH AND BRANCHING VESSELS: Mild atheromatous disease but no significant stenosis . --SOFT TISSUES: Bilateral thyroid nodules with the a large nodule in the right lobe. Ultrasound evalu ation advised. --CERVICAL SPINE: Age appropriate degenerative changes. IMPRESSION: 1. Normal CTA head. 2. CTA neck. Percent stenosis per NASCET criteria is 60% on the left side. 3. Bilateral thyroid nodules. Further evaluation advised Reviewed, dictated and finalized at location A.
--- NOTE | ~2024-10-25 | XR_ITS ---
EXAMINATION: XR chest 2V DATE: 10/25/2024 13:06 INDICATION: Weakness. Hypertension. TECHNIQUE: frontal and lateral views of the chest were obtained. COMPARISON: Chest radiograph dated 09/25/2016 FINDINGS: Mild linear discoid atelectasis/scarring at the lateral left lower lung zone. Additional retrocardiac discoid atelectasis at the medial right lung base. No other airspace opacities, pulmonary edema, ple ural effusion or pneumothorax. Heart size is normal. Mild to moderate thoracic spondylosis. IMPRESSION: 1. Mild discoid atelectasis/scarring at the bilateral lower lung zones. No other acute cardiopulmonar y disease. Reviewed, dictated and finalized at location A. IMPRESSION: 1. Mild discoid atelectasis/scarring at the bilateral lower lung zones. No othe r acute cardiopulmonary disease.
--- NOTE | 2024-10-25 11:26 | ECG_ITS ---
Test Date: 2024-10-25 11:34:26 Measurements Intervals Scott Rate: 82 P: 48 OH: 144 QRS: 6 QRSD: 85 T: 54 QT: 362 QTc: 425 Interpretive Statements SINUS RHYTHM LEFT VENTRICULAR HYPERTROPHY AND ST-T CHANGE MINIMAL Q WAVES- HIGH LATERAL LEADS BASELINE WANDER- I, III, AVR, AVL, AVF BORDERLINE ECG No previous ECG available for comparison Electronically Signed On 10-25-2024 11:45:48 CDT by Marcus Sunshine D.O.
[2024-10-25 12:03] LABS: Add Urine Microscopic? NO; Appearance Urine Clear (Clear); Bilirubin Urine Negative (Negative); Blood Urine Negative (Negative); Color Urine Yellow (Yellow); Glucose Urine UA 3+ mg/dL (Negative); Ketones Urine Negative (Negative); Leukocyte Esterase Ur Negative LEU/UL (Negative); Nitrate Urine Negative (Negative); Protein Urine Negative (Negative); Specific Grav Ur 1.015 (1.001-1.035); Urobilinogen Urine 0.2 mg/dL (<2.0); pH Urine 6.5 (5.0-9.0)
[2024-10-25 12:38] LABS: Alanine Aminotransferase 11 U/L (6-35); Albumin Level 4.7 g/dL (3.5-5.1); Alkaline Phosphatase 96 U/L (38-126); Anion Gap 11 mmol/L (4-12); Aspartate Amino Transferase 20 U/L (14-36); Bilirubin,Total 0.7 mg/dL (0.2-1.3); Blood Urea Nitrogen 9 mg/dL (7-17); Calcium 9.5 mg/dL (8.4-10.2); Carbon Dioxide 24 mmol/L (22-30); Chloride 105 mmol/L (98-107); Estimated CRCL calculation 43 ml/min; Estimated Glomerular Filt Rate 51; Glucose 170 mg/dL (65-110); Potassium 3.7 mmol/L (3.4-5.0); Sodium 140 mmol/L (137-145)
[2024-10-25 12:44] LABS: Basophils Percent Auto 0.4 % (0.2-1.2); Eosinophils Absolute Auto 0.1 K/mm3 (0-0.3); Eosinophils Percent Auto 1.9 % (0-4.4); Hematocrit 38.6 % (37.0-47.0); Hemoglobin 12.1 g/dL (12.0-15.0); Lymphocytes Absolute Auto 1.81 K/mm3 (0.9-3.2); Lymphocytes Percent Auto 34.2 % (18.3-44.2); Mean Corpuscular HGB Conc 31.3 g/dl (32-36); Mean Corpuscular Volume 95.5 fl (80-100); Mean Platelet Volume 10.1 fl (7.4-10.4); Monocytes Absolute Auto 0.2 K/mm3 (0.1-0.6); Monocytes Percent Auto 3.8 % (2.6-8.5); Neutrophils Absolute Auto 3.2 K/mm3 (1.3-6.7); Neutrophils Percent Auto 59.7 % (45.5-73.1); Platelet Count Result 368 k/mm3 (150-375); Red Blood Count 4.04 M/mm3 (4.2-5.4); White Blood Count 5.3 K/mm3 (4.5-10.0)
--- OUTSIDE RECORDS SUMMARY | 2024-10-25 12:54 | XMS_ITS | Clinical Summary ---
Author Organization [facility] Address [address] [place] [address] Care Team Providers [facility] Director Name Role Phone Richie Bacon NP Primary Care Provider [phone] Allergies Active Allergy Reactions Criticality Noted Date Comments Fish Containing Products Rash Medium 07/28/2023 Salt water seafood Metformin Nausea & Vomiting Low 10/06/2023 Pineapple Rash Medium 07/28/2023 Shellfish Containing Products Rash Medium 07/28/2023 Salt water seafood Medications fluticasone propionate (FLONASE) 50 mcg/actuation nasal spray Administer 2 sprays into each nostril once as needed for rhinitis Active cholecalciferol 25 mcg (1,000 unit) tablet Take 1 tablet (1,000 Units total) by mouth daily Active clopidogreL (PLAVIX) 75 mg tabletIndications: Cerebral Thromboembolism Prevention Take 1 tablet (75 mg total) by mouth daily 90 tablet 2 10/22/19 24 Active atorvastatin (LIPITOR) 80 mg tabletIndications: Mixed hyperlipidemia Take 1 tablet (80 mg total) by mouth daily 90 tablet 1 02/25/20 24 Active Steglatro 5 mg tablet Take 1 tablet by mouth once daily 30 tablet 5 06/08/20 24 Active amLODIPine (NORVASC) 5 mg tablet Take 1 tablet by mouth once daily 30 tablet 5 06/08/20 24 Active meclizine (ANTIVERT) 25 mg tablet Take 1 tablet (25 mg total) by mouth 3 (three) times a day as needed for dizziness 30 tablet 3 06/30/20 24 Active calcium carbonate-vitamin D3 2,500 mg (1,000 mg elemental)-800 unit tablet Take 1 tablet by mouth daily Active ferrous sulfate ER 324 mg (65 mg iron) EC tabletIndications: Iron Deficiency Anemia Take 65 mg by mouth daily with breakfast Active LANTUS 100 unit/mL (3 mL) pen for injection INJECT 40 UNITS SUBCUTANEOUSLY IN THE MORNING 15 mL 07/07/20 24 Active lisinopril-hydroCH LOROthiazide (ZESTORETIC) 20-25 mg per tabletIndications: Primary hypertension Take 1 tablet by mouth once daily 90 tablet 08/23/19 25 Active Active Problems Problem Noted Date Diagnosed Date History of CVA (cerebrovascular accident) 2023 Overview (06/30/2024): 07/21/2023: History of CVA. Very minimal right-sided residual weakness Assessment & Plan (06/30/2024 10:26 AM MEDICAL IMAGING TECHNICIAN): History of CVA. Very minimal right-sided weakness only when she is extremely fatigued. We will continue Plavix 75 mg daily. She is advised to only be on monotherapy per neurology Chronic rhinitis 06/30/2024 Assessment & Plan (06/30/2024 10:29 AM MEDICAL IMAGING TECHNICIAN): [place] BMI 29.0-29.9,adult 02/25/2024 Assessment & Plan (06/30/2024 10:27 AM MEDICAL IMAGING TECHNICIAN): Continue following a heart healthy diet that is low in processed carbohydrates and high in fruits and vegetables. Encouraged physical activity as tolerated. Assessment & Plan (02/25/2024 2:34 PM CDT): Continue following a heart healthy diet that is low in processed carbohydrates and high in fruits and vegetables. Encouraged physical activity as tolerated. Low bone mass 10/06/2023 Assessment & Plan (06/30/2024 10:35 AM MEDICAL IMAGING TECHNICIAN): Continue calcium supplement of 1200 mg daily continue vitamin-D 1000 units daily. Assessment & Plan (02/25/2024 2:34 PM CDT): Continue calcium supplement of 1200 mg daily continue vitamin-D 1000 units daily. Assessment & Plan (10/06/2023 4:42 PM CDT): Start calcium supplement of 1200 mg daily continue vitamin-D 1000 units daily. Mixed hyperlipidemia 08/28/2023 Assessment & Plan (06/30/2024 10:27 AM MEDICAL IMAGING TECHNICIAN): LDL is at goal of less than 100. Continue atorvastatin 80 mg daily.. Nonpharmacological interventions such as low carb diet, high in vegetables and fruit discussed. Educated on importance of physical activity. Follow up in 4 months or sooner if needed. Patient verbalizes understanding regarding plan of care and all questions answered Assessment & Plan (02/25/2024 2:33 PM CDT): LDL is at goal of less than 100. Continue atorvastatin 80 mg daily.. Nonpharmacological interventions such as low carb diet, high in vegetables and fruit discussed. Educated on importance of physical activity. Follow up in 4 months or sooner if needed. Patient verbalizes understanding regarding plan of care and all questions answered Assessment & Plan (10/06/2023 4:45 PM CDT): LDL is at goal of less than 100. Continue atorvastatin 80 mg daily.. Nonpharmacological interventions such as low carb diet, high in vegetables and fruit discussed. Educated on importance of physical activity. Follow up in 4 months or sooner if needed. Patient verbalizes understanding regarding plan of care and all questions answered Assessment & Plan (08/28/2023 4:56 PM MEDICAL IMAGING TECHNICIAN): Repeat lipid panels pending. Continue Lipitor 80 mg tablets daily. We will hold Zetia for now since patient is maximized on Lipitor. Post-menopause 08/05/2023 Assessment & Plan (06/30/2024 10:25 AM MEDICAL IMAGING TECHNICIAN): DEXA scan reviewed with patient. She is low bone mass. Recommended to continue vitamin-D and calcium supplementation. Assessment & Plan (10/06/2023 4:45 PM CDT): DEXA scan reviewed with patient. She is low bone mass. Recommended to continue vitamin-D and calcium supplementation. Assessment & Plan (08/05/2023 5:12 PM MEDICAL IMAGING TECHNICIAN): DEXA scan ordered. Patient is advised to have cervical cancer screening. Referral placed to gynecology as well. Primary hypertension 08/05/2023 Assessment & Plan (06/30/2024 10:27 AM MEDICAL IMAGING TECHNICIAN): Blood pressure well controlled. Refills sent to patients requested pharmacy. Discussed medications desired effects, potential side effects, and how to administer the medication. Non Pharmacological interventions such as low salt, cardiac diet discussed. Educated on stress reduction and physical activity. Discussed signs and symptoms of major cardiovascular event and need to present to the ED. Follow up in 2 months or sooner if needed. Patient verbalizes understanding regarding plan of care and all questions answered. Assessment & Plan (02/25/2024 2:33 PM CDT): Blood pressure well controlled. Refills sent to patients requested pharmacy. Discussed medications desired effects, potential side effects, and how to administer the medication. Non Pharmacological interventions such as low salt, cardiac diet discussed. Educated on stress reduction and physical activity. Discussed signs and symptoms of major cardiovascular event and need to present to the ED. Follow up in 2 months or sooner if needed. Patient verbalizes understanding regarding plan of care and all questions answered. Assessment & Plan (10/06/2023 4:45 PM CDT): Blood pressure well controlled. Refills sent to patients requested pharmacy. Discussed medications desired effects, potential side effects, and how to administer the medication. Non Pharmacological interventions such as low salt, cardiac diet discussed. Educated on stress reduction and physical activity. Discussed signs and symptoms of major cardiovascular event and need to present to the ED. Follow up in 2 months or sooner if needed. Patient verbalizes understanding regarding plan of care and all questions answered. Assessment & Plan (08/28/2023 4:04 PM MEDICAL IMAGING TECHNICIAN): Blood pressure well controlled. Refills sent to patients requested pharmacy. Discussed medications desired effects, potential side effects, and how to administer the medication. Non Pharmacological interventions such as low salt, cardiac diet discussed. Educated on stress reduction and physical activity. Discussed signs and symptoms of major cardiovascular event and need to present to the ED. Follow up in 2 months or sooner if needed. Patient verbalizes understanding regarding plan of care and all questions answered. Assessment & Plan (08/05/2023 5:10 PM MEDICAL IMAGING TECHNICIAN): Blood pressure well controlled. Refills sent to patients requested pharmacy. Discussed medications desired effects, potential side effects, and how to administer the medication. Non Pharmacological interventions such as low salt, cardiac diet discussed. Educated on stress reduction and physical activity. Discussed signs and symptoms of major cardiovascular event and need to present to the ED. Follow up in 2 months or sooner if needed. Patient verbalizes understanding regarding plan of care and all questions answered. 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 Refills sent to patients requested pharmacy. Discussed medications desired effects, potential side effects, and how to administer the medication. Nonpharmacological interventions such as low carb diet, high in vegetables and low glycemic fruits discussed. Educated on importance of physical activity. Encourage diabetic eye exam. Discussed signs and symptoms of hypoglycemia and need to present to the ED. Follow up in 4 months or sooner if needed. Patient verbalizes understanding regarding plan of care and all questions answered. Assessment & Plan (02/25/2024 2:32 PM CDT): A1C ordered today, at goal. Refills sent to patients requested pharmacy. Discussed medications desired effects, potential side effects, and how to administer the medication. Nonpharmacological interventions such as low carb diet, high in vegetables and low glycemic fruits discussed. Educated on importance of physical activity. Encourage diabetic eye exam. Discussed signs and symptoms of hypoglycemia and need to present to the ED. Follow up in 4 months or sooner if needed. Patient verbalizes understanding regarding plan of care and all questions answered. Assessment & Plan (10/06/2023 4:47 PM CDT): Increase Lantus to 40 units daily. Reviewed patient's labs with her A1c has increased to 8.8. She has been unable to afford the Farxiga 10 mg. I will order the generic and see if insurance covers it better. Discussed blood sugar goal of fasting readings 80-130 and preprandial of 130-140 and 2 hour postprandial of less than 180. She is advised to check blood sugars and report readings. We discussed titrating insulin weekly to get to a goal A1c of less than 7. Assessment & Plan (08/28/2023 4:53 PM MEDICAL IMAGING TECHNICIAN): She is using Lantus 36 units daily. She is checking her blood sugar 3 times daily. We recently added on Farxiga 10 mg daily and her blood sugar is averaging fasting approximately 125. Due to patient's frequency of checking her blood sugar and use of injectable insulin would like to start her on a Dexcom device. We will order it and see if insurance will cover it. Assessment & Plan (08/05/2023 5:11 PM MEDICAL IMAGING TECHNICIAN): A1C 7.5, not at goal. We will start patient on Farxiga 10 mg daily. Discussed benefits of Farxiga including renal protection and cardiac protection. Medications sent to patients requested pharmacy. Discussed medications desired effects, potential side effects, and how to administer the medication. Nonpharmacological interventions such as low carb diet, high in vegetables and low glycemic fruits discussed. Educated on importance of physical activity. Encourage diabetic eye exam. Discussed signs and symptoms of hypoglycemia and need to present to the ED. Follow up in 3 months or sooner if needed. Patient verbalizes understanding regarding plan of care and all questions answered. Resolved Problems Problem Noted Date Diagnosed Date Resolved Date Follow-up examination 08/28/20232023 Assessment & Plan (08/28/2023 4:53 PM MEDICAL IMAGING TECHNICIAN): Vertigo has resolved. Patient will use meclizine p.r.n.. I encouraged her to make sure where she has a dizzy episode that she is checking her blood pressure and blood sugar. Fatigue 08/05/2023 06/30/2024 Assessment & Plan (10/06/2023 4:47 PM CDT): Patient has residual right-sided weakness in the evening that is brought on by fatigue. 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 She will notify me if she needs me to fill out anything. Assessment & Plan (08/05/2023 5:12 PM MEDICAL IMAGING TECHNICIAN): Labs pending BMI 30.0-30.9,adult 08/05/2023 02/25/20 Assessment & Plan (10/06/2023 4:48 PM CDT): >>ASSESSMENT AND PLAN FOR BMI 29.0-29.9,ADULT WRITTEN ON 08/05/2023 5:13 PM BY RICHIE BACON NP Discussed the patient's BMI. The BMI is above average. BMI management plan is completed. BMI Follow-up includes: nutrition counseling, exercise counseling and education provided. Assessment & Plan (10/06/2023 4:48 PM CDT): >>ASSESSMENT AND PLAN FOR BMI 29.0-29.9,ADULT WRITTEN ON 08/28/2023 4:54 PM BY RICHIE BACON NP Discussed the patient's BMI. The BMI is above average. BMI management plan is completed. BMI Follow-up includes: nutrition counseling, exercise counseling and education provided. Assessment & Plan (10/06/2023 4:48 PM CDT): Discussed the patient's BMI. The BMI is above average. BMI management plan is completed. BMI Follow-up includes: nutrition counseling, exercise counseling and education provided. Cerebrovascular accident (CV A), unspecified mechanism 07/27/2023 06/30/2024 Assessment & Plan (02/25/2024 2:33 PM CDT): History of CVA. Very minimal right-sided weakness only when she is extremely fatigued. We will continue Plavix 75 mg daily. She is advised to only be on monotherapy per neurology Assessment & Plan (10/06/2023 4:44 PM CDT): Patient was supposed to stop the Plavix at last visit. Plavix was discontinued today. I reiterated this with patient. She is to continue only aspirin 81 mg daily. She missed her appointment with Neurology however it has been rescheduled for the beginning of October. Assessment & Plan (08/28/2023 4:55 PM MEDICAL IMAGING TECHNICIAN): Per neurology's recommendation we will stop the Plavix 75 mg as it has been 3 weeks since her stroke. We will continue aspirin 81 mg daily. Patient is scheduled for Neurology at the beginning of September. She is currently doing physical therapy. She reports her right-sided weakness has improved. Assessment & Plan (08/07/2023 5:07 PM MEDICAL IMAGING TECHNICIAN): Continue aspirin 81 mg and Plavix 75 mg tablets. Referral placed for physical therapy evaluation. Appt scheduled for neurology, Immunizations Immunization Administration Dates Next Due Hep A, Adult 08/25/2013 Influenza, Unspecified 06/30/2024(Deferr ed: Patient decision),08/28/2023(Deferred: Patient Refused) Medical History Medical History Date Comments Hypertension Hyperlipidemia Diabetes (HCC) Follow-up examination 08/28/2023 Family History Medical History Relation Name Comments No Known Problems Father Heart disease Mother Hypertension Mother Breast cancer Neg Hx Ovarian cancer Neg Hx Relation Name Status Comments Father Mother Social History Tobacco Use Types Packs/Day Years Used Date Smoking Tobacco: Never Passive Smoke Exposure: Never Smokeless Tobacco: Never Tobacco Cessation:Counseling Given: Not Answered AUDIT-C Answer Date Recorded Q1: How often do you have a drink containing alcohol? Never 02/25/2024 Q2: How many drinks containi ng alcohol do you have on a typical day when you are drinking? Patient does not drink Q3: How often do you have si x or more drinks on one occasion? Never 02/25/2024 PHQ-2 Answer Date Recorded PHQ-2 Total Score 0 06/30/2024 PHQ-9 Answer Date Recorded PHQ-9 Total Score 0 06/30/2024 Personal Safety Answer Date Recorded Have you ever been in or are you currently in a harmful physical or emotional relationship or is someone making you feel afraid or unsafe? Denies 08/22/2023 Comments No Sex and Gender Information Value Date Recorded Sex Assigned at Not on file Legal Sex Female 12:39 AM MEDICAL IMAGING TECHNICIAN Gender Identity Not on file Sexual Orientation Not on file Obstetrics History Para Term AB IAB SAB Ectopic Multiple Livin g Live Births 2 2 2 Date Outcome GA Total Labor Labor/2nd/3rd Weight Sex Type Anes PTL Khushbu A1 A5 Name Clin Term Term Comments Last Filed Vital Signs Vital Sign Reading Time Taken Comments Blood Pressure 132/74 06/30/2024 10:13 AM MEDICAL IMAGING TECHNICIAN Pulse 69 06/30/2024 10:13 AM MEDICAL IMAGING TECHNICIAN Temperature 36.1 C (97 F) 06/30/2024 10:13 AM MEDICAL IMAGING TECHNICIAN Respiratory Rate 16 06/30/2024 10:13 AM MEDICAL IMAGING TECHNICIAN Oxygen Saturation 97% 06/30/2024 10:13 AM MEDICAL IMAGING TECHNICIAN Inhaled Oxygen Concentration - - Weight 69.9 kg (154 lb) 06/30/2024 10:13 AM MEDICAL IMAGING TECHNICIAN Height 152.4 cm (5') 06/30/2024 10:13 AM MEDICAL IMAGING TECHNICIAN Body Mass Index 30.08 06/30/2024 10:13 AM MEDICAL IMAGING TECHNICIAN Plan of Treatment Health Maintenance Due Date Last Done Comments Hepatitis C Screening 1960 Hepatitis B Screening 1976 Dilated Eye Exam 12/16/2023 12/15/2022 Hemoglobin A1C 08/27/2024 02/25/2024, 09/18, 07/28/2023 Albumin Creatinine Ratio, Urine 09/30/2024 10/01/2023 Lipid Panel 09/30/2024 10/01/2023, 07/28/2023 Well Visit 65+ 09/30/2024 10/01/2023 Breast Cancer Screening-Mammogram 10/02/2024 10/03/2023 Fall Risk Assessment 02/24/2025 02/25/2024, 10/06/2023, 08/28/2023, Additional history exists Foot Exam 02/24/2025 02/25/2024 eGFR 02/24/2025 02/25/2024, 0208/2023, 07/28/2023, Additional history exists Influenza Vaccine (Season Ended) 2025 DTaP/Tdap/Td Vaccine (1 - Tdap) 06/30/2025 Postponed from 1969 (Patient declined, but will receive in the future) Depression Screening 06/30/2025 06/30/2024, 02/25/2024, 10/06/2023, Additional history exists Pneumococcal vaccine 65+ (1 of 2 - PCV) 06/30/2025 Postponed from 1977 (Patient declined, but will receive in the future) Zoster Vaccine (1 of 2) 06/30/2025 Post poned from 2008 (Patient declined, but will receive in the future) Osteoporosis Screening-Bone Density Scan 10/02/2025 10/03/2023 Colon Cancer Screening-Colonoscopy 04/04/2026 04/04/2021 Cervical Cancer Screening Discontinued 10/01/2023, Procedures Procedure Name Priority Date/Time Associated Diagnosis Comments EGFR Routine 02/25/2024 11:51 AM CDT Type 2 diabetes mellitus with stage 2 chronic kidney disease, with long-term current use of insulin (HCC) Primary hypertension HEMOGLOBIN A1C Routine 02/25/2024 11:51 AM CDT Type 2 diabetes mellitus with stage 2 chronic kidney disease, with long-term current use of insulin (HCC) Primary hypertension DEXA AXIAL SKELETON BONE DENSITY 1 OR MORE SITES Schedule Routine, Read Routine (OP Routine) 10/03/2023 1:27 PM CDT Post-menopause SCREENING MAMMOGRAM BILATERAL W HARJINDER Schedule Routine, Read Routine (OP Routine) 10/03/2023 1:11 PM CDT Encounter for screening mammogram for malignant neoplasm of breast ALBUMIN CREATININE RATIO, URINE Routine 10/01/2023 3:47 PM CDT Type 2 diabetes mellitus with stage 2 chronic kidney disease, with long-term current use of insulin (HCC) LIPID PANEL Routine 10/01/2023 3:22 PM CDT Mixed hyperlipidemia HIGH RISK HPV DNA DETECTION WITH GENOTYPING Routine 10/01/2023 2:08 PM CDT Cervical cancer screening Well woman exam HM DIABETES EYE EXAM Routine 12/15/2022 from Last 3 Months or Most Recently Relevant to Health Maintenance Results * (ABNORMAL) eGFR (02/25/2024 11:51 AM CDT) eGFR 55(L) >=60 mL/min/1. 73 m2 Comment: Interpretive Data Reference Interval Normal >/= 90 mL/min/1.73m2 Mildly decreased* 60 - 89 mL/min/1.73m2 Mildly to moderately decreased 45 - 59 mL/min/1.73m2 Moderately to severely decreased 30 - 44 mL/min/1.73m2 Severely decreased 15 - 29 mL/min/1.73m2 Kidney Failure < 15 mL/min/1.73m2 *Relative to young adult level Estimated glomerular filtration rate is determined by the 2020 CKD-EPI equation recommended by the National Kidney Foundation (A Unifying Approach to GFR Estimation: Recommendations of the NKF-ASK Task Force on Reassessing the Inclusion of Race in Diagnosing Kidney Disease, JASN 2020). The CKD-EPI equation should not be used for patients with unstable renal function and has not been validated in children and those over 70. Current interpretive data was last reviewed 2021. Blood 02/25/2024 11:5 1 AM CDT 02/25/2024 12:42 PM CDT Richie Bacon NP LAB BLOOD ORDERABLES Final Re sult [facility] [address] [facility] Department [place] [address] * (ABNORMAL) Hemoglobin A1c (02/25/2024 11:51 AM CDT) Hgb A1C 8.9(H) 4.0 - 5.6 % Estimated Average Glucose 209 mg/dL [facility] Comment: The ADA recommends reporting an estimated Average Glucose (eAG) with all Hemoglobin A1c results using the equation derived from a study of 507 normal and diabetic adults. Minority populations were underrepresented and children were not included. (Diabetes Care 31:7761-1933, 2008). The eAG is not equivalent to a fasting glucose. Blood 02/25/2024 11:5 1 AM CDT 02/25/2024 12:42 PM CDT us Richie Bacon NP LAB BLOOD ORDERABLES Final Re sult [facility] [address] [facility] Department [place] [address] * Dexa Axial Skeleton Bone Density 1 or 2 Site (10/03/2023 1:27 PM CDT) Anatomical Region Laterality Modality Body N/A Mammography 10/04/2023 5:38 PM CDT Narrative 10/04/2023 5:39 PM CDT EXAM DESCRIPTION: DEXA AXIAL SKELETON BONE DENSITY 1 OR MORE SITES REASON FOR STUDY: 63 y/o year old F with given history of: menopause Health Lead/Model: SharePlow A (S/N [id number]) CLINICAL INFORMATION: Current height: 66 inches Maximum height: 66 inches Weight: 154 pounds Risk factors: Postmenopausal COMPARISON: None available FINDINGS: AP LUMBAR SPINE L1-L4: Total BMD is 0.938 g/cm2 T-score is -1.9 LEFT HIP: Total BMD is 0.864 g/cm2 T-score is -1.1 Femoral neck BMD is 0.634 g/cm2 T-score is -2.2 FRAX: 10 year risk for a major osteoporotic fracture is 4.7 %, 10 year risk for a hip fracture is 0.7 % IMPRESSION: Low Bone Mass. REFERENCE: Bone mineral density: T-Score: Normal (T-score above or = -1.0) Low bone mass (T-score between -1.0 and -2.5) replaces the previously used term osteopenia Osteoporosis (T-score = or below -2.5) Z-Score: Within the expected range for age (Z-score above -2.0) Below the expected range for age (Z-score is -2.0 or below) Please see below follow up recommendations. Medical evaluation for secondary causes of low bone mineral density may be appropriate. FRAX is a World Health Organization validated fracture risk assessment tool that calculates a person's 10 year probability of a major osteoporosis related fracture and hip fracture. According to the National Osteoporosis Foundation guidelines, postmenopausal women and men age 50 or older with low bone mass and a 10 year probability of a major osteoporosis related fracture = or greater than 20% or a 10 year probability of a hip fracture = or greater than 3% should be considered for pharmacological treatment for the prevention of osteoporosis. For further information, including treatment recommendations, please refer to the 2019 ISCD Official Positions (http://www.iscd.org) and the NOF's Clinician's Guide to Prevention and Treatment of Osteoporosis (http://www.nof.org/professionals/clinical-guidelines) THIS IS AN ELECTRONICALLY VERIFIED FINAL REPORT 10/04/2023 5:39 PM - Electronically signed by Nicolas Serna M.D. MF: TOM Report ID: [id number] Reading Location: [address] Note Nicolas Serna MD - 10/04/2023 EXAM DESCRIPTION: DEXA AXIAL SKELETON BONE DENSITY 1 OR MORE SITES REASON FOR STUDY: 63 y/o year old F with given history of: menopause Health Lead/Model: SharePlow A (S/N [id number]) CLINICAL INFORMATION: Current height: 66 inches Maximum height: 66 inches Weight: 154 pounds Risk factors: Postmenopausal COMPARISON: None available FINDINGS: AP LUMBAR SPINE L1-L4: Total BMD is 0.938 g/cm2 T-score is -1.9 LEFT HIP: Total BMD is 0.864 g/cm2 T-score is -1.1 Femoral neck BMD is 0.634 g/cm2 T-score is -2.2 FRAX: 10 year risk for a major osteoporotic fracture is 4.7 %, 10 year risk fora hip fracture is 0.7 % IMPRESSION: Low Bone Mass. REFERENCE: Bone mineral density: T-Score: Normal (T-score above or = -1.0) Low bone mass (T-score between -1.0 and -2.5) replaces thepreviously used term osteopenia Osteoporosis (T-score = or below -2.5) Z-Score: Within the expected range for age (Z-score above -2.0) Below the expected range for age (Z-score is -2.0 or below) Please see below follow up recommendations. Medical evaluation forsecondary causes of low bone mineral density may be appropriate. FRAX is a World Health Organization validated fracture risk assessmenttool that calculates a person's 10 year probability of a major osteoporosisrelated fracture and hip fracture. According to the National OsteoporosisFoundation guidelines, postmenopausal women and men age 50 or older with low bonemass and a 10 year probability of a major osteoporosis related fracture = or greater than 20% or a 10 year probability of a hip fracture = or greaterthan 3% should be considered for pharmacological treatment for the preventionof osteoporosis. For further information, including treatment recommendations, please referto the 2019 ISCD Official Positions (http://www.iscd.org) and the NOF's Clinician's Guide to Prevention and Treatment of Osteoporosis (http://www.nof.org/professionals/clinical-guidelines) THIS IS AN ELECTRONICALLY VERIFIED FINAL REPORT 10/04/2023 5:39 PM - Electronically signed by Nicolas Serna M.D. MF: TOM Report ID: [id number] Reading Location: [id number] Richie Bacon NP IMG DXA PROCEDURES Final Resu lt * Screening Mammogram Bilateral W Harjinder (10/03/2023 1:11 PM CDT) Anatomical Region Laterality Modality Breast Bilateral Mammography Impressions 10/16/2023 2:32 PM CDT BI-RADS ATLAS category (overall): 2 - Benign There is no mammographic evidence of malignancy. A 1 year screening mammogram is recommended. The patient has been or will be contacted. We recommend annual screening mammography for women at average risk of breast cancer beginning at age 40, based on guidelines of the [employer] (ACR Practice Parameter for the Performance of Screening and Diagnostic Mammography) and [employer]. For women with and elevated risk of breast cancer, please refer to the ACR Practice Parameter for specific screening recommendations. The patient will be entered into a reminder system with a target due date of 1 year for her next screening exam. Narrative 10/16/2023 2:32 PM CDT Screening Mammogram Bilateral W Harjinder: 10/03/23 The study was acquired using full field digital technology and interpreted from soft copy. 2D digital mammographic views, as well as 3D digital tomosynthesis were performed in the CC and MLO projections. CLINICAL: Encounter for screening mammogram for malignant neoplasm of breast. No relevant medical history has been documented for this patient. History of breast cancer in Neg Hx. COMPARISONS: 07/25/2016 Breast Imaging Diagnostic Outside Reference 07/05/2016 Breast Imaging Screening Outside Reference 07/03/2015 Breast Imaging Screening Outside Reference BREAST TISSUE: The breasts have scattered areas of fibroglandular density. FINDINGS: Small benign masses with circumscribed margins are again seen in both breasts without suspicious change. There is no new suspicious finding in either breast on mammogram. Richie Bacon NP IMG MAMMO PROCEDURES Final Re sult * Albumin Creatinine Ratio, Urine (10/01/2023 3:47 PM CDT) Albumin Ur 17.7 mg/L Comment: Interpretive Data No reference range established. Current interpretive data was last revised 2018. Creatinine Ur 329.0 mg/dL [facility] Comment: Interpretive Data No reference range established. Current interpretive data was last revised 2018. Albumin Creatinine Ratio, Ur 5 1 - 29 mg/g [facility] ZAPATA Urine 10/01/2023 3:47 PM CDT 10/01/2023 3:48 PM CDT Richie Bacon NP LAB URINE ORDERABLES Final Re sult [facility] [address] Department of Laboratories [place], [place] [id number] * Lipid panel (10/01/2023 3:22 PM CDT) Cholesterol 180 30 - 199 mg/dL Comment: Interpretive Data Ages < or = 19 years Acceptable: <170 mg/dL Borderline high: 170-199 mg/dL High: >or= 200 mg/dL Ages > or = 20 years Desirable: <200 mg/dL Borderline high: 200-239 mg/dL High: >or= 240 mg/dL Literature References: 1. Expert Panel on Integrated Guidelines for Cardiovascular Health and Risk Reduction in Children and Adolescents. Pediatrics 2011;128:S213 2. NCEP Expert Panel. Circulation 2004;110:227 Current Interpretive Data was last revised on 2018. Triglycerides 69 <=149 mg/dL [facility] Comment: Interpretive Data Ages < or = 9 years Acceptable: <75 mg/dL Borderline high: 75-99 mg/dL High: >or= 100 mg/dL Ages 10 to 20 years Acceptable: <90 mg/dL Borderline high: 90-129 mg/dL High: >or= 130 mg/dL Ages > or = 20 years Desirable: <150 mg/dL Borderline high: 150-199 mg/dL High: 200-499 mg/dL Very high: >or= 499 mg/dL Literature References: 1. Expert Panel on Integrated Guidelines for Cardiovascular Health and Risk Reduction in Children and Adolescents. Pediatrics 2011;128:S213 2. NCEP Expert Panel. Circulation 2004;110:227 Current Interpretive Data was last revised on 2018. HDL 68 >=40 mg/dL [facility] Comment: Interpretive Data Ages < or = 19 years Acceptable: >45 mg/dL Borderline low: 40-45 mg/dL Low: <40 mg/dL Ages > or = 20 years Desirable: >or= 60 mg/dL Low: <40 mg/dL Literature References: 1. Expert Panel on Integrated Guidelines for Cardiovascular Health and Risk Reduction in Children and Adolescents. Pediatrics 2011;128:S213 2. NCEP Expert Panel. Circulation 2004;110:227 Current Interpretive Data was last revised on 2018. LDL, calculated 98 <=129 mg/dL [facility] Comment: Interpretive Data Ages < or = 19 years Acceptable: <110 mg/dL Borderline high: 110-129 mg/dL High: >or= 130 mg/dL Ages > or = 20 years Optimal: <100 mg/dL Near optimal: 100-129 mg/dL Borderline high: 130-159 mg/dL High: >160 mg/dL Literature References: 1. Expert Panel on Integrated Guidelines for Cardiovascular Health and Risk Reduction in Children and Adolescents. Pediatrics 2011;128:S213 2. NCEP Expert Panel. Circulation 2004;110:227 Current Interpretive Data was last revised on 2018. Non-HDL Cholesterol 112 mg/dL [facility] Comment: Interpretive Data Ages < or = 19 years Acceptable: <120 mg/dL Borderline high: 120-144 mg/dL High: >145 mg/dL Ages > or = 20 years When triglycerides are >200 mg/dL, Non-HDL cholesterol is a secondary target of therapy with treatment goals that are 30 mg/dL greater than the LDL cholesterol target. Literature References: 1. Expert Panel on Integrated Guidelines for Cardiovascular Health and Risk Reduction in Children and Adolescents. Pediatrics 2011;128:S213 2. NCEP Expert Panel. Circulation 2004;110:227 Current Interpretive Data was last revised on 2018. Chol/HDL ratio 3 [facility] Blood 10/01/2023 3:22 PM CDT 10/01/2023 3:49 PM CDT Narrative DILIA - 10/01/2023 4:31 PM CDT Has the patient been fasting for 8 hours or more?->Yes Richie Bacon NP LAB BLOOD ORDERABLES Final Re sult [facility] [address] Department [place] [address] * High Risk HPV DNA Detection with Genotyping (Molecular component) (10/01/2023 2:08 PM CDT) Pathologist [facility] HPV HR 16 Not Detected Not Detected [facility] Comment:Testing performed by : [facility], [address] [place]., [address] HPV HR 18 Not Detected Not Detected [facility] Comment:Testing performed by : [facility], [address] [place]., [address] HPV HR Non 16/18 Not Detected Not Detected [facility] Comment: Interpretive Data Nucleic acid amplification for detection of high-risk Human Papilloma virus (HPV) is performed by the Andrew Vitor 6800 HPV test. This assay specifically detects HPV-16 and HPV-18 genotypes. The following HPV genotypes are detected as high-risk HPV: HPV-31, 33, 35, ,39, 45, 51, 52, 56, 58, 59, 66, and 68. This assay has been approved by the [place] Food and Drug Administration for detection of HPV in cervical specimens collected by a physician using an endocervical brush/spatula or cervical broom and placed in the ThinPrep Pap Test PreservCyt collection containers. The performance characteristics of this test have been verified by the [facility] Molecular Infectious Disease laboratory. Correlate with separately reported cytology results, as applicable. Interpretive data last revised 23 Testing performed by: [facility], [address] [place]., [address] Endocervical 10/01/2023 2:08 PM CDT 10/01/2023 7:46 PM CDT Narrative DILIA - 10/02/2023 3:27 AM CDT Clinical history and diagnosis->screen Testing type->Screening Last menstrual period (date if known)->pm Jordy Lara MD LAB BODY FLUIDS AND STO OLS ORDERABLES Final Result [facility] [address] Department [place] [address] [facility] * DIABETES EYE EXAM (12/15/2022) Impressions Petty Bob - 12/15/2022 No diabetic retinopathy detected Historical Provider HEALTH MAINTENANCE Final Result from Last 3 Months or Most Recently Relevant to Health Maintenance Insurance [facility] Advance Directives For more information, please contact: [phone] * Full Code (Latest Code Status on File) Date Activated Date Inactivated Comments 07/27/2023 8:12 AM 07/29/2023 7:29 PM Care Teams Counsel[facility] Director Relationship Specialty Start Date End Date Richie Bacon NP PCP - General Internal Medicine 07/28/23
--- OUTSIDE RECORDS SUMMARY | 2024-10-25 12:54 | XMS_ITS | Referral Summary ---
Author Organization [facility] Address [address] [place] [address] Care Team Providers Care Division Commander Name Role Phone iRchie Bacon NP Primary Care Provider [phone] Allergies Active Allergy Reactions Criticality Noted Date [...] weakness Assessment & Plan (06/30/2024 10:26 AM STAKER SURVEYING): History of CVA. Very minimal right-sided weakness only when she is extremely fatigued. We will continue Plavix 75 mg daily. She is advised to only be on monotherapy per neurology Chronic rhinitis 06/30/2024 Assessment & Plan (06/30/2024 10:29 AM STAKER SURVEYING): [place] BMI 29.0-29.9,adult 02/25/2024 Assessment & Plan (06/30/2024 10:27 AM STAKER SURVEYING): Continue following a heart healthy diet that is low in processed carbohydrates and high in fruits and vegetables. Encouraged physical activity as tolerated. Assessment & Plan (02/25/2024 2:34 PM CDT): Continue following a heart healthy diet that is low in processed carbohydrates and high in fruits and vegetables. Encouraged physical activity as tolerated. Low bone mass 10/06/2023 Assessment & Plan (06/30/2024 10:35 AM STAKER SURVEYING): Continue calcium supplement of 1200 mg daily continue vitamin-D 1000 units daily. Assessment & Plan (02/25/2024 2:34 PM CDT): Continue calcium supplement of 1200 mg daily continue vitamin-D 1000 units daily. Assessment & Plan (10/06/2023 4:42 PM CDT): Start calcium supplement of 1200 mg daily continue vitamin-D 1000 units daily. Mixed hyperlipidemia 08/28/2023 Assessment & Plan (06/30/2024 10:27 AM STAKER SURVEYING): LDL is at goal of less than [...] answered Assessment & Plan (08/28/2023 4:56 PM STAKER SURVEYING): Repeat lipid panels pending. Continue Lipitor 80 mg tablets daily. We will hold Zetia for now since patient is maximized on Lipitor. Post-menopause 08/05/2023 Assessment & Plan (06/30/2024 10:25 AM STAKER SURVEYING): DEXA scan reviewed with patient. She is low bone mass. Recommended to continue vitamin-D and calcium supplementation. Assessment & Plan (10/06/2023 4:45 PM CDT): DEXA scan reviewed with patient. She is low bone mass. Recommended to continue vitamin-D and calcium supplementation. Assessment & Plan (08/05/2023 5:12 PM STAKER SURVEYING): DEXA scan ordered. Patient is advised to have cervical cancer screening. Referral placed to gynecology as well. Primary hypertension 08/05/2023 Assessment & Plan (06/30/2024 10:27 AM STAKER SURVEYING): Blood pressure well controlled. Refills sent to [...] answered. Assessment & Plan (08/28/2023 4:04 PM STAKER SURVEYING): Blood pressure well controlled. Refills sent to [...] answered. Assessment & Plan (08/05/2023 5:10 PM STAKER SURVEYING): Blood pressure well controlled. Refills sent to [...] 08/05/2023 Assessment & Plan (06/30/2024 10:27 AM STAKER SURVEYING): A1C ordered today, at goal. Refills sent [...] 7. Assessment & Plan (08/28/2023 4:53 PM STAKER SURVEYING): She is using Lantus 36 units daily. [...] it. Assessment & Plan (08/05/2023 5:11 PM STAKER SURVEYING): A1C 7.5, not at goal. We will [...] 08/28/20232023 Assessment & Plan (08/28/2023 4:53 PM STAKER SURVEYING): Vertigo has resolved. Patient will use meclizine [...] anything. Assessment & Plan (08/05/2023 5:12 PM STAKER SURVEYING): Labs pending BMI 30.0-30.9,adult 08/05/2023 02/25/20 Assessment [...] October. Assessment & Plan (08/28/2023 4:55 PM STAKER SURVEYING): Per neurology's recommendation we will stop the Plavix 75 mg as it has been 3 weeks since her stroke. We will continue aspirin 81 mg daily. Patient is scheduled for Neurology at the beginning of September. She is currently doing physical therapy. She reports her right-sided weakness has improved. Assessment & Plan (08/07/2023 5:07 PM STAKER SURVEYING): Continue aspirin 81 mg and Plavix 75 mg tablets. Referral placed for physical therapy evaluation. Appt scheduled for neurology, Immunizations Immunization Administration Dates Next Due Hep A, Adult 08/25/2013 Influenza, Unspecified 06/30/2024(Deferr ed: Patient decision),08/28/2023(Deferred: Patient Refused) Social History Tobacco Use Types Packs/Day Years [...] on file Legal Sex Female 12:39 AM STAKER SURVEYING Gender Identity Not on file Sexual Orientation Not on file Last Filed Vital Signs Vital Sign Reading Time Taken Comments Blood Pressure 132/74 06/30/2024 10:13 AM STAKER SURVEYING Pulse 69 06/30/2024 10:13 AM STAKER SURVEYING Temperature 36.1 C (97 F) 06/30/2024 10:13 AM STAKER SURVEYING Respiratory Rate 16 06/30/2024 10:13 AM STAKER SURVEYING Oxygen Saturation 97% 06/30/2024 10:13 AM STAKER SURVEYING Inhaled Oxygen Concentration - - Weight 69.9 kg (154 lb) 06/30/2024 10:13 AM STAKER SURVEYING Height 152.4 cm (5') 06/30/2024 10:13 AM STAKER SURVEYING Body Mass Index 30.08 06/30/2024 10:13 AM STAKER SURVEYING Plan of Treatment Not on file Procedures Procedure Name Priority Date/Time Associated Diagnosis Comments EGFR Routine 02/25/2024 11:51 AM CDT Type 2 diabetes mellitus with stage 2 chronic kidney disease, with long-term current use of insulin ([facility]) Primary hypertension HEMOGLOBIN A1C Routine 02/25/2024 11:51 AM CDT Type 2 diabetes mellitus with stage 2 chronic kidney disease, with long-term current use of insulin ([facility]) Primary hypertension DEXA AXIAL SKELETON BONE DENSITY [...] disease, with long-term current use of insulin ([facility]) LIPID PANEL Routine 10/01/2023 3:22 PM CDT Mixed hyperlipidemia HIGH RISK HPV DNA DETECTION WITH GENOTYPING Routine 10/01/2023 2:08 PM CDT Cervical cancer screening Well woman exam DIABETES EYE EXAM Routine 12/15/2022 from Last 3 Months or Most Recently Relevant to Health Maintenance Results * (ABNORMAL) eGFR (02/25/2024 11:51 AM CDT) [facility] Signature eGFR 55(L) >=60 mL/min/1. 73 m2 Comment: [...] NP LAB BLOOD ORDERABLES Final Re sult Performing Organization Address City/State/[facility] Co de Phone Number [facility] [address] [place] [address] * (ABNORMAL) Hemoglobin A1c (02/25/2024 11:51 AM CDT) Hgb A1C 8.9(H) 4.0 - 5.6 % Estimated Average Glucose 209 mg/dL [facility]ILIA ZAPATA Comment: The ADA recommends reporting an estimated Average Glucose (eAG) with all Hemoglobin A1c results using the equation derived from a study of 507 normal and diabetic adults. Minority populations were underrepresented and children were not included. (Diabetes Care 31:2844-2346, 2008). The eAG is not equivalent to a fasting glucose. Blood 02/25/2024 11:5 1 AM CDT 02/25/2024 12:42 PM CDT [employer] LAB BLOOD ORDERABLES Final Re sult [facility] [address] [place] [address] * Dexa Axial Skeleton Bone Density 1 or 2 Site (10/03/2023 1:27 PM CDT) Anatomical Region Laterality Modality Body N/A Mammography 10/04/2023 5:38 PM CDT Narrative 10/04/2023 5:39 PM CDT EXAM DESCRIPTION: DEXA AXIAL SKELETON BONE DENSITY 1 OR MORE SITES REASON FOR STUDY: 63 y/o year old F with given history of: menopause Manager Reimbursement/Model: Powervation A (S/N [id number]) CLINICAL INFORMATION: Current height: 66 inches Maximum [...] Nicolas Serna M.D. MF: TOM Report ID: [id number] Reading Location: [place] [address] Procedure Note Nicolas Serna MD - 10/04/2023 EXAM DESCRIPTION: DEXA AXIAL SKELETON BONE DENSITY 1 OR MORE SITES REASON FOR STUDY: 63 y/o year old F with given history of: menopause Manager Reimbursement/Model: Powervation A (S/N [id number]) CLINICAL INFORMATION: Current height: 66 inches Maximum [...] Nicolas Serna M.D. MF: TOM Report ID: [id number] Reading Location: [place] [address] Richie Bacon NP IMG DXA PROCEDURES Final [...] age 40, based on guidelines of the [employer] (ACR Practice Parameter for the Performance of Screening and Diagnostic Mammography) and [employer]. For women [...] suspicious finding in either breast on mammogram. us Richie Bacon NP IMG MAMMO PROCEDURES Final Re sult * Albumin Creatinine Ratio, Urine (10/01/2023 3:47 PM CDT) Albumin Ur 17.7 mg/L Comment: Interpretive Data No reference range established. Current interpretive data was last revised 2018. Creatinine Ur 329.0 mg/dL [facility] Comment: Interpretive Data No reference range established. Current interpretive data was last revised 2018. Albumin Creatinine Ratio, Ur 5 1 - 29 mg/g [facility] Urine 10/01/2023 3:47 PM CDT 10/01/2023 3:48 PM CDT Richie Bacon NP LAB URINE ORDERABLES Final Re sult [facility] [address] [place] [address] * Lipid panel (10/01/2023 3:22 PM CDT) [...] LAB BLOOD ORDERABLES Final Re sult [facility] [address] [place] [address] * High Risk HPV DNA Detection with Genotyping (Molecular component) (10/01/2023 2:08 PM CDT) HPV HR 16 Not Detected Not Detected [facility] Comment:Testing performed by : [facility], [address] [place]., [address] HPV HR 18 Not Detected Not Detected [facility] Comment:Testing performed by : [facility], [address] [place]., [address] HPV HR Non 16/18 Not Detected Not [...] this test have been verified by the [facility] Molecular Infectious Disease laboratory. Correlate with separately reported cytology results, as applicable. Interpretive data last revised 23 Testing performed by: [facility], [address] [place]., [address] Endocervical 10/01/2023 2:08 PM CDT 10/01/2023 7:46 PM CDT Narrative DILIA - 10/02/2023 3:27 AM CDT Clinical history and diagnosis->screen Testing type->Screening Last menstrual period (date if known)->pm Jordy Lara MD LAB BODY FLUIDS AND STO OLS ORDERABLES Final Result [facility] [address] [place] [address] [facility] * DIABETES EYE EXAM (12/15/2022) Impressions Bob Petty - 12/15/2022 No diabetic retinopathy detected Historical Provider HEALTH MAINTENANCE Final Result from Last 3 Months or Most Recently Relevant to Health Maintenance Insurance [facility] Advance Directives For more information, please contact: [phone] * Full Code (Latest Code Status on File) Date Activated Date Inactivated Comments 07/27/2023 8:12 AM 07/29/2023 7:29 PM Care Teams Division Commander Relationship Specialty Start Date End Date Richie Bacon NP PCP - General Internal Medicine 07/28/23
--- NOTE | 2024-10-25 13:53 | ED_ITS ---
HPI - General Adult General Chief complaint: Weakness Stated complaint: Pain and weakness to entire right side since 0 Time Seen by Provider: 10/25/24 11:31 History of Present Illness HPI narrative: Patient is a 64-year-old female who presents to the ER with stroke symptoms. Sudden onset right-sided numbness and weakness beginning last night. Associated with slurred speech. Continues throughout the day. It has never normalized. She takes baby aspirin daily. No blood thinning agents otherwise. Was brought in by co-worker who noticed her weakness and slurred speech. Denies trauma. No chest pain. History of CVA in the past. Related Data Home Medications ?Medication ?Instructions ?Recorded ?Confirmed ?Last Taken ?Type aspirin 81 mg tablet,delayed 81 mg PO DAILY 07/27/19 07/09/23 Unknown History release (Adult Aspirin Regimen) fluticasone propionate 50 1 spray intranasal DAILY PRN 11/20/22 07/09/23 Unknown History mcg/actuation nasal spray,suspension (Flonase Allergy Relief) ascorbic acid (vitamin C) 500 mg 500 mg PO DAILY PRN 04/09/23 07/09/23 Unknown History tablet Allergies Allergy/AdvReac Type Severity Reaction Status Date / Time pineapple Allergy Severe HIVES/ANAPH Verified 10/25/24 11:06 YLAXIS metformin Allergy Unknown Nausea and Verified 10/25/24 11:06 Vomiting Sulfa (Sulfonamide Allergy Unknown Unknown Verified 10/25/24 11:06 Antibiotics) SEA-[place] SEAFOOD Allergy Severe ANAPHYLAXIS Uncoded 10/25/24 11:06 Review of Systems 2 Review of Systems: All systems reviewed & are unremarkable except as noted in HPI and below Constitutional: Constitutional: Reports no additional constitutional complaints ENT: Reports system reviewed and no additional complaints, except as documented Cardiovascular: Cardiovascular: Reports no additional cardiovascular complaints Respiratory: Respiratory: Reports no additional respiratory complaints Neurologic: Reports system reviewed and no additional complaints, except as documented [facility] Past Medical History Medical History Anemia (~1979) Benign positional vertigo (~09/2022) Chronic pain of left knee Environmental allergies HTN (hypertension) (~2009) Hyperlipidemia (~2014) Type 2 diabetes mellitus (~2014) Vitamin D deficiency Family History Family History Sibling Diabetes mellitus Colon polyp Mother Hypertension Cardiovascular disease Sibling Family history of thyroid disease Malignant neoplasm of prostate Diabetes mellitus, Onset Age: 60 Carcinoma of colon, Onset Age: 60 Father Hypertension Family history of lung cancer Mother Hypertension, Onset Age: 52 Family history of coronary artery disease Family history of cardiovascular disease, Onset Age: 52 Social History Social History Social History: Caffeine-none Smoking status: Never smoker Second hand tobacco smoke exposure: No Alcohol intake: never Substance use: never Substance use type: does not use Lack of Transportation: No Lack of Food: Never True Current Housing: I Have Housing Concerned About Future Housing: No Difficulty Paying Gas/Electric Bills: No Difficulty Paying for Meds: No Currently Unemployed: No Education: Trade/Vocational Certificate Difficulty w/ Childcare or Family Care: No Living arrangements: with family Occupation/Education: occupation Additional occupation/education comments: [employer] Gender identity (if verbalized by the patient): Female Spiritual care concerns: No Agree to blood products: Yes Exam 2 Narrative: GENERAL: Well-appearing, well-nourished, and in no acute distress. HEAD: Normocephalic, atraumatic. EYES: PERRL and EOMI. ENT: Mucous membranes moist. CHEST: Clear to auscultation. No respiratory distress. HEART: Regular rate and rhythm. Normal peripheral pulses. ABDOMEN: Soft, nontender, nondistended. EXTREMITIES: Normal range of motion. No edema. SKIN: Warm, dry, no rash. NEURO: Alert and oriented x3. NIH stroke scale of 7. Decreased pinprick right arm and right leg. Neapiy-km-xids over she right upper extremity. Sfsn-ua-obta unable to be performed by right lower extremity. Pronator drift right upper extremity. Patient has difficulty lifting right leg up off the bed. Minor slurred speech that is more so subjective to patient is post observed by myself. No expressive aphasia.. PSYCH: Normal mood and affect. Course Course Emergency Course: Neurology consult. Recommend dual anti-platelet therapy with Plavix load. MRI in the hospital. Accepted by hospitalist service. Patient where diagnosis and treatment plan. No change in symptoms during my care. Vital Signs Vital signs: Vital Signs Pulse Rate 79 10/25/24 11:14 Respiratory Rate 11 L 10/25/24 11:14 Pulse Oximetry 100 10/25/24 11:14 Temperature 97.9 F 10/25/24 11:17 Pulse Rate 69 10/25/24 17:15 Respiratory Rate 16 10/25/24 17:15 Blood Pressure 167/93 H 10/25/24 16:16 Pulse Oximetry 99 10/25/24 17:15 Medical Decision Making Vital Signs Vital Signs: Vital Signs Pulse Rate 79 10/25/24 11:14 Respiratory Rate 11 L 10/25/24 11:14 Pulse Oximetry 100 10/25/24 11:14 Temperature 97.9 F 10/25/24 11:17 Pulse Rate 69 10/25/24 17:15 Respiratory Rate 16 10/25/24 17:15 Blood Pressure 167/93 H 10/25/24 16:16 Pulse Oximetry 99 10/25/24 17:15 Lab Data 10/25/24 12:35 10/25/24 12:18 Labs: Lab Results 10/25/24 10/25/24 10/25/24 Range/Units 11:55 12:18 12:35 WBC 5.3 (4.5-10.0) K/mm3 RBC 4.04 L (4.2-5.4) M/mm3 Hgb 12.1 (12.0-15.0) g/dL Hct 38.6 (37.0-47.0) % MCV 95.5 (80-100) fl MCH 30.0 (26-34) pg MCHC 31.3 L (32-36) g/dl RDW 12.0 (11.5-14.5) % Plt Count 368 (150-375) k/mm3 MPV 10.1 (7.4-10.4) fl Immature Gran % (Auto) 0.0 (0-0.5) % Neut % (Auto) 59.7 (45.5-73.1) % Lymph % (Auto) 34.2 (18.3-44.2) % Sandoval % (Auto) 3.8 (2.6-8.5) % Eos % (Auto) 1.9 (0-4.4) % Baso % (Auto) 0.4 (0.2-1.2) % Lymph # (Auto) 1.81 (0.9-3.2) K/mm3 [place]oval # (Auto) 0.2 (0.1-0.6) K/mm3 Eos # (Auto) 0.1 (0-0.3) K/mm3 Baso # (Auto) 0.0 (0.0-0.1) K/mm3 Abs Immat Gran (auto) 0.00 (0.00-0.031) K/mm3 Absolute Neuts (auto) 3.2 (1.3-6.7) K/mm3 Absolute Nucleated RBC 0.000 (0.0-0.012) K/mm3 Nucleated RBC % 0.0 (0.0-0.2) % Sodium 140 (137-145) mmol/L Potassium 3.7 (3.4-5.0) mmol/L Chloride 105 (98-107) mmol/L Carbon Dioxide 24 (22-30) mmol/L Anion Gap 11 (4-12) mmol/L BUN 9 (7-17) mg/dL Creatinine 1.08 H (0.7-1.0) mg/dL Estim Creat Clear Calc 43 ml/min Estimated GFR 51 L (59 - ) Glucose 170 H (65-110) mg/dL Calcium 9.5 (8.4-10.2) mg/dL Total Bilirubin 0.7 (0.2-1.3) mg/dL AST 20 (14-36) U/L ALT 11 (6-35) U/L Alkaline Phosphatase 96 (38-126) U/L Total Protein 8.0 (6.3-8.2) g/dL Albumin 4.7 (3.5-5.1) g/dL Urine Color Yellow (Yellow) Urine Appearance Clear (Clear) Urine pH 6.5 (5.0-9.0) Ur Specific [place] 1.015 (1.001-1.035) Urine Protein Negative (Negative) mg/dL Urine Glucose (UA) 3+ H (Negative) mg/dL Urine Ketones Negative (Negative) mg/dL Ur Blood (Man) Negative (Negative) Urine Nitrate Negative (Negative) Urine Bilirubin Negative (Negative) Urine Urobilinogen 0.2 (<2.0) mg/dL Leukocyte Esterase Rfl Negative (Negative) ISIDRA/UL Imaging Data Radiologist's impression: ITS Impressions Chest X-Ray 10/25/24 13:07 IMPRESSION: 1. Mild discoid atelectasis/scarring at the bilateral lower lung zones. No other acute cardiopulmonary disease. Head/Neck CTA 10/25/24 15:04 IMPRESSION: 1. Normal CTA head. 2. CTA neck. Percent stenosis per NASCET criteria is 60% on the left side. 3. Bilateral thyroid nodules. Further evaluation advised Discharge Plan Discharge Clinical Impression: Acute CVA (cerebrovascular accident) Patient Disposition: Home Condition: Stable Quality Stroke Scale Stroke Scale 1: Stroke scale date:: 10/25/24 Stroke scale time:: 11:45 1a Level of consciousness: alert-0 1b Level of consciousness questions: answers both correctly-0 1c Level of consciousness commands: obeys both correctly-0 2 Best gaze: normal-0 3 Visual: no visual loss-0 4 Facial palsy: normal-0 5a Motor: left arm: no drift-0 5b Motor: right arm: drift-1 6a Motor: left leg: no drift-0 6b Motor: right leg: some effort/gravity-2 7 Limb ataxia: present in two limbs-2 8 Sensory: pinprick less sharp-1 9 Best language: no aphasia-0 10 Dysarthria: slurs some words-1 11 Extinction and inattention: no abnormality-0 Level:: 7
--- OUTSIDE RECORDS SUMMARY | 2024-10-25 14:03 | XMS_ITS | Referral Summary ---
Author Organization [facility] Address [address] [place] [address] Care Team Providers Care Ice Bag Assembler Name Role Phone Richie Bacon NP Primary Care Provider [phone] Allergies Active Allergy Reactions Criticality Noted Date [...] weakness Assessment & Plan (06/30/2024 10:26 AM COMPUTER SYSTEMS AUDITOR): History of CVA. Very minimal right-sided weakness only when she is extremely fatigued. We will continue Plavix 75 mg daily. She is advised to only be on monotherapy per neurology Chronic rhinitis 06/30/2024 Assessment & Plan (06/30/2024 10:29 AM COMPUTER SYSTEMS AUDITOR): [place] BMI 29.0-29.9,adult 02/25/2024 Assessment & Plan (06/30/2024 10:27 AM COMPUTER SYSTEMS AUDITOR): Continue following a heart healthy diet that is low in processed carbohydrates and high in fruits and vegetables. Encouraged physical activity as tolerated. Assessment & Plan (02/25/2024 2:34 PM CDT): Continue following a heart healthy diet that is low in processed carbohydrates and high in fruits and vegetables. Encouraged physical activity as tolerated. Low bone mass 10/06/2023 Assessment & Plan (06/30/2024 10:35 AM COMPUTER SYSTEMS AUDITOR): Continue calcium supplement of 1200 mg daily continue vitamin-D 1000 units daily. Assessment & Plan (02/25/2024 2:34 PM CDT): Continue calcium supplement of 1200 mg daily continue vitamin-D 1000 units daily. Assessment & Plan (10/06/2023 4:42 PM CDT): Start calcium supplement of 1200 mg daily continue vitamin-D 1000 units daily. Mixed hyperlipidemia 08/28/2023 Assessment & Plan (06/30/2024 10:27 AM COMPUTER SYSTEMS AUDITOR): LDL is at goal of less than [...] answered Assessment & Plan (08/28/2023 4:56 PM COMPUTER SYSTEMS AUDITOR): Repeat lipid panels pending. Continue Lipitor 80 mg tablets daily. We will hold Zetia for now since patient is maximized on Lipitor. Post-menopause 08/05/2023 Assessment & Plan (06/30/2024 10:25 AM COMPUTER SYSTEMS AUDITOR): DEXA scan reviewed with patient. She is low bone mass. Recommended to continue vitamin-D and calcium supplementation. Assessment & Plan (10/06/2023 4:45 PM CDT): DEXA scan reviewed with patient. She is low bone mass. Recommended to continue vitamin-D and calcium supplementation. Assessment & Plan (08/05/2023 5:12 PM COMPUTER SYSTEMS AUDITOR): DEXA scan ordered. Patient is advised to have cervical cancer screening. Referral placed to gynecology as well. Primary hypertension 08/05/2023 Assessment & Plan (06/30/2024 10:27 AM COMPUTER SYSTEMS AUDITOR): Blood pressure well controlled. Refills sent to [...] answered. Assessment & Plan (08/28/2023 4:04 PM COMPUTER SYSTEMS AUDITOR): Blood pressure well controlled. Refills sent to [...] answered. Assessment & Plan (08/05/2023 5:10 PM COMPUTER SYSTEMS AUDITOR): Blood pressure well controlled. Refills sent to [...] 08/05/2023 Assessment & Plan (06/30/2024 10:27 AM COMPUTER SYSTEMS AUDITOR): A1C ordered today, at goal. Refills sent [...] 7. Assessment & Plan (08/28/2023 4:53 PM COMPUTER SYSTEMS AUDITOR): She is using Lantus 36 units daily. [...] it. Assessment & Plan (08/05/2023 5:11 PM COMPUTER SYSTEMS AUDITOR): A1C 7.5, not at goal. We will [...] 08/28/20232023 Assessment & Plan (08/28/2023 4:53 PM COMPUTER SYSTEMS AUDITOR): Vertigo has resolved. Patient will use meclizine [...] anything. Assessment & Plan (08/05/2023 5:12 PM COMPUTER SYSTEMS AUDITOR): Labs pending BMI 30.0-30.9,adult 08/05/2023 02/25/20 Assessment [...] October. Assessment & Plan (08/28/2023 4:55 PM COMPUTER SYSTEMS AUDITOR): Per neurology's recommendation we will stop the Plavix 75 mg as it has been 3 weeks since her stroke. We will continue aspirin 81 mg daily. Patient is scheduled for Neurology at the beginning of September. She is currently doing physical therapy. She reports her right-sided weakness has improved. Assessment & Plan (08/07/2023 5:07 PM COMPUTER SYSTEMS AUDITOR): Continue aspirin 81 mg and Plavix 75 [...] on file Legal Sex Female 12:39 AM COMPUTER SYSTEMS AUDITOR Gender Identity Not on file Sexual Orientation Not on file Last Filed Vital Signs Vital Sign Reading Time Taken Comments Blood Pressure 132/74 06/30/2024 10:13 AM COMPUTER SYSTEMS AUDITOR Pulse 69 06/30/2024 10:13 AM COMPUTER SYSTEMS AUDITOR Temperature 36.1 C (97 F) 06/30/2024 10:13 AM COMPUTER SYSTEMS AUDITOR Respiratory Rate 16 06/30/2024 10:13 AM COMPUTER SYSTEMS AUDITOR Oxygen Saturation 97% 06/30/2024 10:13 AM COMPUTER SYSTEMS AUDITOR Inhaled Oxygen Concentration - - Weight 69.9 kg (154 lb) 06/30/2024 10:13 AM COMPUTER SYSTEMS AUDITOR Height 152.4 cm (5') 06/30/2024 10:13 AM COMPUTER SYSTEMS AUDITOR Body Mass Index 30.08 06/30/2024 10:13 AM COMPUTER SYSTEMS AUDITOR Plan of Treatment Not on file Procedures Procedure Name Priority Date/Time Associated Diagnosis Comments EGFR Routine 02/25/2024 11:51 AM CDT Type 2 diabetes mellitus with stage 2 chronic kidney disease, with long-term current use of insulin ([facility]) Primary hypertension HEMOGLOBIN A1C Routine 02/25/2024 11:51 AM CDT Type 2 diabetes mellitus with stage 2 chronic kidney disease, with long-term current use of insulin ([facility]) Primary hypertension DEXA AXIAL SKELETON BONE DENSITY [...] with long-term current use of insulin ([facility]) LIPID PANEL Routine 10/01/2023 3:22 PM CDT Mixed hyperlipidemia HIGH RISK HPV DNA DETECTION WITH GENOTYPING Routine 10/01/2023 2:08 PM CDT Cervical cancer screening Well woman exam DIABETES EYE EXAM Routine 12/15/2022 from Last 3 Months or Most Recently Relevant to Health Maintenance Results * (ABNORMAL) eGFR (02/25/2024 11:51 AM CDT) [facility] Signature eGFR 55(L) >=60 mL/min/1. 73 [...] ORDERABLES Final Re sult Performing Organization Address City/State/[facility] Co de Phone Number DILIA [address] Department [place] [address] * (ABNORMAL) Hemoglobin A1c (02/25/2024 11:51 AM CDT) Hgb A1C 8.9(H) 4.0 - 5.6 % Estimated Average Glucose 209 mg/dL DILIA [facility] Comment: The ADA recommends reporting an estimated Average Glucose (eAG) with all Hemoglobin A1c results using the equation derived from a study of 507 normal and diabetic adults. Minority populations were underrepresented and children were not included. (Diabetes Care 31:7097-0024, 2008). The eAG is not equivalent to a fasting glucose. 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 MF: TOM Report ID: [id number] Reading Location: [place] [address] Richie Bacon NP IMG DXA PROCEDURES Final [...] age 40, based on guidelines of the [employer] [employer] (ACR Practice Parameter for the Performance of Screening and Diagnostic Mammography) and [employer]. For women [...] revised 2018. Creatinine Ur 329.0 mg/dL [facility] Comment: Interpretive Data No reference range established. Current interpretive data was last revised 2018. Albumin Creatinine Ratio, Ur 5 1 - 29 mg/g DILIA Urine 10/01/2023 3:47 PM CDT 10/01/2023 3:48 PM CDT Richie Bacon NP LAB URINE ORDERABLES Final Re sult [facility] [address] Department [place] [address] * Lipid panel (10/01/2023 3:22 [...] LAB BLOOD ORDERABLES Final Re sult DILIA [address] Department [place] [address] * High Risk HPV DNA Detection with Genotyping (Molecular component) (10/01/2023 2:08 PM CDT) HPV HR 16 Not Detected Not Detected [facility] Comment:Testing performed by : [facility], [address] [place]., [address] HPV HR 18 Not Detected Not Detected [facility] Comment:Testing performed by : [facility], [address] [place]., [address] HPV HR Non 16/18 Not Detected Not [...] this test have been verified by the [facility] Molecular Infectious Disease laboratory. Correlate with separately reported cytology results, as applicable. Interpretive data last revised 23 Testing performed by: [facility], [address] [place]., [address] Endocervical 10/01/2023 2:08 PM CDT 10/01/2023 7:46 PM CDT Narrative DILIA - 10/02/2023 3:27 AM CDT Clinical history and diagnosis->screen Testing type->Screening Last menstrual period (date if known)->pm Jordy Lara MD LAB BODY FLUIDS AND STO OLS ORDERABLES Final Result [facility] [address] Department [place] [address] [facility] * DIABETES EYE EXAM (12/15/2022) Impressions Bob Petty - 12/15/2022 No diabetic retinopathy detected Historical Provider HEALTH MAINTENANCE Final Result from Last 3 Months or Most Recently Relevant to Health Maintenance Insurance [facility] Address: [facility] [address] [place] [address] [facility] H[facility]/PPO Address: [address] [address] Advance Directives For more information, please contact: [phone] * Full Code (Latest Code Status on File) Date Activated Date Inactivated Comments 07/27/2023 8:12 AM 07/29/2023 7:29 PM Care Teams Ice Bag Assembler Relationship Specialty Start Date End Date Richie Bacon NP PCP - General Internal Medicine 07/28/23
--- OUTSIDE RECORDS SUMMARY | 2024-10-25 14:03 | XMS_ITS | Clinical Summary ---
Author Organization [facility] Address [address] [place] [address] Care Team Providers Care Hydrogen Braze Furnace Operator Name Role Phone Richie Bacon NP Primary Care Provider [phone] Allergies Active Allergy Reactions Criticality Noted Date [...] weakness Assessment & Plan (06/30/2024 10:26 AM SOCIAL AND POLITICAL STUDIES PROFESSOR): History of CVA. Very minimal right-sided weakness only when she is extremely fatigued. We will continue Plavix 75 mg daily. She is advised to only be on monotherapy per neurology Chronic rhinitis 06/30/2024 Assessment & Plan (06/30/2024 10:29 AM SOCIAL AND POLITICAL STUDIES PROFESSOR): [place] georg[place]olina BMI 29.0-29.9,adult 02/25/2024 Assessment & Plan (06/30/2024 10:27 AM SOCIAL AND POLITICAL STUDIES PROFESSOR): Continue following a heart healthy diet that is low in processed carbohydrates and high in fruits and vegetables. Encouraged physical activity as tolerated. Assessment & Plan (02/25/2024 2:34 PM CDT): Continue following a heart healthy diet that is low in processed carbohydrates and high in fruits and vegetables. Encouraged physical activity as tolerated. Low bone mass 10/06/2023 Assessment & Plan (06/30/2024 10:35 AM SOCIAL AND POLITICAL STUDIES PROFESSOR): Continue calcium supplement of 1200 mg daily continue vitamin-D 1000 units daily. Assessment & Plan (02/25/2024 2:34 PM CDT): Continue calcium supplement of 1200 mg daily continue vitamin-D 1000 units daily. Assessment & Plan (10/06/2023 4:42 PM CDT): Start calcium supplement of 1200 mg daily continue vitamin-D 1000 units daily. Mixed hyperlipidemia 08/28/2023 Assessment & Plan (06/30/2024 10:27 AM SOCIAL AND POLITICAL STUDIES PROFESSOR): LDL is at goal of less than [...] answered Assessment & Plan (08/28/2023 4:56 PM SOCIAL AND POLITICAL STUDIES PROFESSOR): Repeat lipid panels pending. Continue Lipitor 80 mg tablets daily. We will hold Zetia for now since patient is maximized on Lipitor. Post-menopause 08/05/2023 Assessment & Plan (06/30/2024 10:25 AM SOCIAL AND POLITICAL STUDIES PROFESSOR): DEXA scan reviewed with patient. She is low bone mass. Recommended to continue vitamin-D and calcium supplementation. Assessment & Plan (10/06/2023 4:45 PM CDT): DEXA scan reviewed with patient. She is low bone mass. Recommended to continue vitamin-D and calcium supplementation. Assessment & Plan (08/05/2023 5:12 PM SOCIAL AND POLITICAL STUDIES PROFESSOR): DEXA scan ordered. Patient is advised to have cervical cancer screening. Referral placed to gynecology as well. Primary hypertension 08/05/2023 Assessment & Plan (06/30/2024 10:27 AM SOCIAL AND POLITICAL STUDIES PROFESSOR): Blood pressure well controlled. Refills sent to [...] answered. Assessment & Plan (08/28/2023 4:04 PM SOCIAL AND POLITICAL STUDIES PROFESSOR): Blood pressure well controlled. Refills sent to [...] answered. Assessment & Plan (08/05/2023 5:10 PM SOCIAL AND POLITICAL STUDIES PROFESSOR): Blood pressure well controlled. Refills sent to [...] 08/05/2023 Assessment & Plan (06/30/2024 10:27 AM SOCIAL AND POLITICAL STUDIES PROFESSOR): A1C ordered today, at goal. Refills sent [...] 7. Assessment & Plan (08/28/2023 4:53 PM SOCIAL AND POLITICAL STUDIES PROFESSOR): She is using Lantus 36 units daily. [...] it. Assessment & Plan (08/05/2023 5:11 PM SOCIAL AND POLITICAL STUDIES PROFESSOR): A1C 7.5, not at goal. We will [...] 08/28/20232023 Assessment & Plan (08/28/2023 4:53 PM SOCIAL AND POLITICAL STUDIES PROFESSOR): Vertigo has resolved. Patient will use meclizine [...] anything. Assessment & Plan (08/05/2023 5:12 PM SOCIAL AND POLITICAL STUDIES PROFESSOR): Labs pending BMI 30.0-30.9,adult 08/05/2023 02/25/20 Assessment [...] October. Assessment & Plan (08/28/2023 4:55 PM SOCIAL AND POLITICAL STUDIES PROFESSOR): Per neurology's recommendation we will stop the Plavix 75 mg as it has been 3 weeks since her stroke. We will continue aspirin 81 mg daily. Patient is scheduled for Neurology at the beginning of September. She is currently doing physical therapy. She reports her right-sided weakness has improved. Assessment & Plan (08/07/2023 5:07 PM SOCIAL AND POLITICAL STUDIES PROFESSOR): Continue aspirin 81 mg and Plavix 75 [...] on file Legal Sex Female 12:39 AM SOCIAL AND POLITICAL STUDIES PROFESSOR Gender Identity Not on file Sexual Orientation Not on file Obstetrics History Para Term AB IAB SAB Ectopic Multiple Livin g Live Births 2 2 2 Date Outcome GA Total Labor Labor/2nd/3rd Weight Sex Type Anes PTL Khushbu A1 A5 Name Clin Term Term Comments Last Filed Vital Signs Vital Sign Reading Time Taken Comments Blood Pressure 132/74 06/30/2024 10:13 AM SOCIAL AND POLITICAL STUDIES PROFESSOR Pulse 69 06/30/2024 10:13 AM SOCIAL AND POLITICAL STUDIES PROFESSOR Temperature 36.1 C (97 F) 06/30/2024 10:13 AM SOCIAL AND POLITICAL STUDIES PROFESSOR Respiratory Rate 16 06/30/2024 10:13 AM SOCIAL AND POLITICAL STUDIES PROFESSOR Oxygen Saturation 97% 06/30/2024 10:13 AM SOCIAL AND POLITICAL STUDIES PROFESSOR Inhaled Oxygen Concentration - - Weight 69.9 kg (154 lb) 06/30/2024 10:13 AM SOCIAL AND POLITICAL STUDIES PROFESSOR Height 152.4 cm (5') 06/30/2024 10:13 AM SOCIAL AND POLITICAL STUDIES PROFESSOR Body Mass Index 30.08 06/30/2024 10:13 AM SOCIAL AND POLITICAL STUDIES PROFESSOR Plan of Treatment Health Maintenance Due Date [...] LAB BLOOD ORDERABLES Final Re sult [facility] [address] [facility] Department [place] [address] * (ABNORMAL) Hemoglobin A1c (02/25/2024 11:51 AM CDT) Hgb A1C 8.9(H) 4.0 - 5.6 % Estimated Average Glucose 209 mg/dL [facility] Comment: The ADA recommends reporting an estimated Average Glucose (eAG) with all Hemoglobin A1c results using the equation derived from a study of 507 normal and diabetic adults. Minority populations were underrepresented and children were not included. (Diabetes Care 31:1810-7452, 2008). The eAG is not equivalent to a fasting glucose. 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 MF: TOM Report ID: [id number] Reading Location: [id number] Richie Bacon NP IMG DXA PROCEDURES Final [...] age 40, based on guidelines of the [employer] (ACR Practice Parameter for the Performance of Screening and Diagnostic Mammography) and [employer]. For women [...] NP LAB URINE ORDERABLES Final Re sult [facility] [address] [facility] Department of Laboratories [place], [place] [id number] * Lipid panel (10/01/2023 3:22 PM CDT) [...] LAB BLOOD ORDERABLES Final Re sult [facility] [address] [facility] Department [place] [address] * High Risk HPV DNA Detection with Genotyping (Molecular component) (10/01/2023 2:08 PM CDT) Pathologist [facility] HPV HR 16 Not Detected Not Detected [facility] Comment:Testing performed by : [facility], [address] [place]., [address] HPV HR 18 Not Detected Not Detected [facility] Comment:Testing performed by : [facility], [address] [place]., [address] HPV HR Non 16/18 Not Detected Not [...] this test have been verified by the [facility] Molecular Infectious Disease laboratory. Correlate with separately reported cytology results, as applicable. Interpretive data last revised 23 Testing performed by: [facility], [address] [place]., [address] Endocervical 10/01/2023 2:08 PM CDT 10/01/2023 7:46 PM CDT Narrative [facility] - 10/02/2023 3:27 AM CDT Clinical history and diagnosis->screen Testing type->Screening Last menstrual period (date if known)->pm Jordy Lara MD LAB BODY FLUIDS AND STO OLS ORDERABLES Final Result [facility] [address] [facility] Department [place] [address] [facility] * DIABETES EYE EXAM (12/15/2022) Impressions Petty Bob - 12/15/2022 No diabetic retinopathy detected Historical Provider HEALTH MAINTENANCE Final Result from Last 3 Months or Most Recently Relevant to Health Maintenance Insurance [facility] Advance Directives For more information, please contact: [phone] * Full Code (Latest Code Status on File) Date Activated Date Inactivated Comments 07/27/2023 8:12 AM 07/29/2023 7:29 PM Care Teams Hydrogen Braze Furnace Operator Relationship Specialty Start Date End Date Richie Bacon NP PCP - General Internal Medicine 07/28/23
[2024-10-25] MEDS: CLOPIDOGREL BISULFATE 300 MG TABLET PO (16:12)
--- NOTE | 2024-10-25 17:39 | ADMGEN ---
This patient, Vita Chu, was admitted to [facility] Surg Room 321-02. Patient/family oriented to hospital policies and general routines including ID bracelet, bed and alarms, visiting hours, pain management, procedures, bathroom and other care routines, personal items, smoking policy, room service/diet, and visiting hours. Information on how to activate the Rapid Response Team has been discussed. Patient/Family are encouraged to report perceived risks to care and to ask questions if they do not understand what they are told or what they should do.
--- NOTE | 2024-10-25 18:20 | P.HP_ITS ---
H&P: HPI History of Present Illness Date/Time: 10/25/24 18:20 Chief Complaint: Right sided weakness. Narrative: This is a pleasant 64-year-old female with history of vertigo, stroke, hypertension, dyslipidemia, and type 2 diabetes mellitus who presented to the emergency department with complaints of right-sided weakness. It is not unusual for her to have occasional paresthesias of the right foot and sometime yesterday afternoon she did notice some tingling in the foot and right leg. As the day progressed the right leg felt heavy and at time she felt as though she was dragging the leg while walking. She also felt that the right arm seemed to be a bit heavy as well and just before going to bed she was bringing able to the kitchen and was unable to keep a hold of it and it dropped to the ground. Her symptoms were still present today and a co-worker noticed them encouraged her to come in for evaluation. She denies vertigo, visual changes, facial droop, difficulty speaking and swallowing, palpitations, chest pain, shortness a breath, nausea, vomiting, and sweats. She does mention that she has been out of all of her medications for about 3 weeks as she is currently between doctors. Blood pressures have been running high and she reports that even when she takes her medications that they are typically 160 to 170 systolic or above. In the ED: Blood pressure was 190/88 on arrival; the remainder of her vital signs were stable. Labs were significant for creatinine of 1.0 weight and a glucose of 170. CTA of the head was normal. 60% stenosis of the left internal carotid artery was noted on CTA of the neck as well as bilateral thyroid nodules. EKG showed sinus rhythm with left ventricular hypertrophy and ST-T changes. ED physician spoke with the on-call neurologist who recommended loading the patient with Plavix and she is being admitted in this setting for further workup. Review of Systems Review of Systems: 12 systems were reviewed and are negativ e except for as per HPI. [facility] Past Medical History Medical History (Updated 10/25/24 @ 22:40 by Evonne Becker PA-C) Cerebrovascular accident Seasonal allergies Hypertension Chronic pain of left knee Benign positional vertigo (~09/2022) Vitamin D deficiency Anemia (~1979) Hyperlipidemia (~2014) Type 2 diabetes mellitus (~2014) Surgical History Surgical History (Updated 10/25/24 @ 22:40 by Evonne Becker PA-C) History of orthopedic surgery Family History Family History (Reviewed 07/09/23 @ 10:11 by Marquita Vidal [facility]) Sibling Diabetes mellitus Colon polyp Mother Hypertension Cardiovascular disease Sibling Family history of thyroid disease Malignant neoplasm of prostate Diabetes mellitus, Onset Age: 60 Carcinoma of colon, Onset Age: 60 Father Hypertension Family history of lung cancer Mother Hypertension, Onset Age: 52 Family history of coronary artery disease Family history of cardiovascular disease, Onset Age: 52 Social History Social History (Updated 10/25/24 @ 22:40 by Evonne Becker PA-C) Social History: Surrogate medical decision maker: Tata Hurt, sibling. Code status: Full code. Smoking status: Never smoker Second hand tobacco smoke exposure: No Alcohol intake: never Substance use: never Substance use type: does not use Do You Feel Safe in your Home?: Yes Lack of Transportation: No Lack of Food: Often True Current Housing: I Have Housing Concerned About Future Housing: YES Difficulty Paying Gas/Electric Bills: YES Difficulty Paying for Meds: YES Currently Unemployed: No Education: Associate Degree Difficulty w/ Childcare or Family Care: No Living arrangements: with family Occupation/Education: occupation Additional occupation/education comments: Retired, works part-time at [employer] concerns: No Agree to blood products: Yes Meds Home Medications and Allergies Home Medications ?Medication ?Instructions ?Recorded ?Confirmed ?Type aspirin 81 mg tablet,delayed 81 mg PO DAILY 07/27/19 10/25/24 History release (Adult Aspirin Regimen) blood sugar diagnostic (Blood #100 ea 08/16/20 10/25/24 Rx Glucose Test strips) blood-glucose meter (OneTouch #1 ea 08/16/20 10/25/24 Rx Verio Flex Start kit) lancets 28 gauge (Comfort EZ #100 ea 08/16/20 10/25/24 Rx Lancets) meloxicam 7.5 mg tablet 7.5 mg PO DAILY #30 tabs 09/10/22 10/25/24 Rx amlodipine 5 mg tablet 5 mg PO DAILY #90 tabs 10/03/22 10/25/24 Rx lisinopril 20 1 tablet PO DAILY #90 tabs 10/03/22 10/25/24 Rx mg-hydrochlorothiazide 25 mg tablet fluticasone propionate 50 1 spray intranasal DAILY PRN 11/20/22 10/25/24 History mcg/actuation nasal allergy symptoms spray,suspension (Flonase Allergy Relief) ezetimibe 10 mg tablet (Zetia) 10 mg PO DAILY #90 tabs 04/24/23 10/25/24 Rx meclizine 25 mg tablet 25 mg PO TID PRN dizziness #30 tabs 11/18/23 10/25/24 Rx atorvastatin 80 mg tablet (Lipitor) 80 mg PO DAILY 10/25/24 10/25/24 History insulin glargine 100 unit/mL (3 40 unit subcut DAILY 10/25/24 10/25/24 History mL) subcutaneous pen (Lantus Solostar U-100 Insulin) Allergies Allergy/AdvReac Type Severity Reaction Status Date / Time pineapple Allergy Severe HIVES/ANAPH Verified 10/25/24 11:06 YLAXIS metformin Allergy Unknown Nausea and Verified 10/25/24 11:06 Vomiting Sulfa (Sulfonamide Allergy Unknown Unknown Verified 10/25/24 11:06 Antibiotics) SEA-[place] SEAFOOD Allergy Severe ANAPHYLAXIS Uncoded 10/25/24 11:06 Vital Signs Vital Signs - 24 hr 10/25/24 11:14 10/25/24 11:15 10/25/24 11:16 Temperature Pulse Rate 79 81 82 Respiratory Rate 11 L 19 15 Blood Pressure 210/91 H Pulse Oximetry 100 100 100 10/25/24 11:17 10/25/24 11:30 10/25/24 11:31 Temperature 97.9 F Pulse Rate 81 76 78 Respiratory Rate 19 13 17 Blood Pressure 210/91 H 206/95 H Pulse Oximetry 100 100 100 10/25/24 11:32 10/25/24 12:08 10/25/24 12:17 Temperature Pulse Rate 82 74 74 Respiratory Rate 20 19 20 Blood Pressure Pulse Oximetry 100 100 100 10/25/24 12:30 10/25/24 12:31 10/25/24 12:32 Temperature Pulse Rate 77 68 73 Respiratory Rate 19 11 L 23 H Blood Pressure 206/178 H Pulse Oximetry 92 10/25/24 13:10 10/25/24 13:14 10/25/24 13:15 Temperature Pulse Rate 82 77 Respiratory Rate 29 H 18 Blood Pressure 188/100 H Pulse Oximetry 10/25/24 13:30 10/25/24 13:45 10/25/24 14:00 Temperature Pulse Rate 73 73 69 Respiratory Rate 19 14 23 H Blood Pressure Pulse Oximetry 10/25/24 14:15 10/25/24 14:32 10/25/24 14:51 Temperature Pulse Rate 71 78 73 Respiratory Rate 21 H 25 H 17 Blood Pressure Pulse Oximetry 10/25/24 15:00 10/25/24 15:03 10/25/24 15:15 Temperature Pulse Rate 68 78 67 Respiratory Rate 16 16 18 Blood Pressure Pulse Oximetry 100 10/25/24 15:16 10/25/24 15:40 10/25/24 15:41 Temperature Pulse Rate 68 74 69 Respiratory Rate 20 29 H 17 Blood Pressure 176/96 H 190/88 H Pulse Oximetry 99 99 10/25/24 15:45 10/25/24 15:46 10/25/24 16:00 Temperature Pulse Rate 75 73 74 Respiratory Rate 15 17 12 Blood Pressure 182/99 H Pulse Oximetry 10/25/24 16:01 10/25/24 16:15 10/25/24 16:16 Temperature Pulse Rate 69 78 77 Respiratory Rate 13 19 17 Blood Pressure 177/85 H 167/93 H Pulse Oximetry 100 10/25/24 16:30 10/25/24 17:13 10/25/24 17:15 Temperature Pulse Rate 73 74 69 Respiratory Rate 15 15 16 Blood Pressure Pulse Oximetry 98 99 99 Exam Narrative: General: Well-developed, nontoxic-appearing female sitting up in bed no acute distress. Weight: 66.4 kg. BMI: 23.6. HEENT: PERRL, EOMI. Sclera anicteric. Oral mucosa moist. Neck: Supple. Respiratory: Lungs are clear to auscultation bilaterally. Cardiovascular: Regular rate and rhythm with S1-S2. Gastrointestinal: Abdomen is soft, nontender, and nondistended with positive bowel sounds. No organomegaly. Skin: Warm and dry. No rash or lesions on limited exam. Extremities: No cyanosis, clubbing, or edema. Radial and pedal pulses intact. Neurological: Alert and oriented. Cranial nerves 2-12 are grossly intact. Speech is clear. No facial asymmetry. Mild right upper extremity drift. She is able to raise her right arm with some struggling. She is able to raise her right leg off of the bed several inches but falls quickly with mild resistance. Slight dysmetria with right [id number] and orox-pa-lmdf. Psychiatric: Pleasant and cooperative with normal mood and affect. H&P: Results Labs Labs: Short CBC 10/25/24 Range/Units 12:35 WBC 5.3 (4.5-10.0) K/mm3 Hgb 12.1 (12.0-15.0) g/dL Hct 38.6 (37.0-47.0) % Plt Count 368 (150-375) k/mm3 BMP 10/25/24 12:18 Sodium 140 Potassium 3.7 Chloride 105 Carbon Dioxide 24 BUN 9 Creatinine 1.08 H Glucose 170 H Calcium 9.5 Liver Function 10/25/24 Range/Units 12:18 Total Bilirubin 0.7 (0.2-1.3) mg/dL AST 20 (14-36) U/L ALT 11 (6-35) U/L Alkaline Phosphatase 96 (38-126) U/L Albumin 4.7 (3.5-5.1) g/dL Urine 10/25/24 Range/Units 11:55 Urine Color Yellow (Yellow) Urine Appearance Clear (Clear) Urine pH 6.5 (5.0-9.0) Ur Specific [place] 1.015 (1.001-1.035) Urine Protein Negative (Negative) mg/dL Urine Glucose (UA) 3+ H (Negative) mg/dL Impressions Chest X-Ray 10/25/24 13:07 IMPRESSION: 1. Mild discoid atelectasis/scarring at the bilateral lower lung zones. No other acute cardiopulmonary disease. Head/Neck CTA 10/25/24 15:04 IMPRESSION: 1. Normal CTA head. 2. CTA neck. Percent stenosis per NASCET criteria is 60% on the left side. 3. Bilateral thyroid nodules. Further evaluation advised. Assessment and Plan Assessment and plan (1) Cerebrovascular accident: Code(s): I63.9 - Cerebral infarction, unspecified Status: Acute (2) Left-sided carotid artery disease: Code(s): I77.9 - Disorder of arteries and arterioles, unspecified Status: Acute (3) Hypertension: Code(s): I10 - Essential (primary) hypertension Status: Acute (4) Hyperlipidemia: Onset Date: ~2014 Qualifiers: Hyperlipidemia type: unspecified Qualified Code(s): E78.5 - Hyperlipidemia, unspecified Code(s): E78.5 - Hyperlipidemia, unspecified Status: Acute (5) Type 2 diabetes mellitus: Onset Date: ~2014 Qualifiers: Diabetes mellitus complication status: without complication Diabetes mellitus terminal press operator insulin use: with penitentiary use Qualified Code(s): E11.9 - Type 2 diabetes mellitus without complications; Z79.4 - director long term care (current) use of insulin Code(s): E11.9 - Type 2 diabetes mellitus without complications Status: Acute (6) Thyroid nodule: Code(s): E04.1 - Nontoxic single thyroid nodule Status: Acute Plan The patient presented to the emergency department for evaluation of right-sided numbness, weakness, and slurred speech which has been present since 22:00 last night as detailed in HPI. Labs, imaging, EKG, and all reports were personally reviewed. Clinically she has had a stroke and is outside of the window for thrombolytics. CTA of the neck showed 60% left carotid artery stenosis which will need to be followed by vascular as an outpatient. She has been started on aspirin and clopidogrel and neurology has been consulted for further recommendations. MRI and echocardiogram ordered. Allow permissive hypertension for the next 24 hours or so. Check fasting lipids in a.m.; she is already on a high-intensity statin. Continue basal insulin. Initiate sliding scale insulin, Accu-Cheks, and hypoglycemic protocol. She needs to establish a primary care provider prior to discharge for close follow-up including follow-up of the thyroid nodules seen on imaging today. Her home medications will be reviewed and resumed as appropriate. Findings and treatment plan were discussed with the patient. Questions were solicited and answered to satisfaction. The patient's medical management will be taken over by the hospitalist team in a.m. Quality VTE Prophylaxis VTE prophylaxis: mechanical ordered Stroke Date of last known normal: 10/24/24 Time of last known normal: 22:00 Pharmacological Therapy Was IV thrombolytic therapy given?: No (outside window) The patient has been admitted under observation status. Hospitalist MIPS Advance Care Plan I have confirmed that the patient's Advanced Care Plan is present, code status is documented, or surrogate decision maker is listed in patient medical record.: Yes Medication Reconciliation The patient is not eligible for med reconciliation; the patient is in a emergent medical situation where delaying treatment would jeopardize the patients health.: Yes
[2024-10-25 22:46] LABS: Glucose Point of Care 166 mg/dl (65-105)
[2024-10-26] VITALS (10 sets, daily range): BP systolic 122–149; BP diastolic 63–87; PULSE 61–80; RESP 16–18; TEMP 36.4–37; O2SAT 99–100
[2024-10-26 06:56] LABS: Anion Gap 12 mmol/L (4-12); Blood Urea Nitrogen 13 mg/dL (7-17); Calcium 9.5 mg/dL (8.4-10.2); Carbon Dioxide 23 mmol/L (22-30); Chloride 105 mmol/L (98-107); Cholesterol 267 mg/dL (0-200); Estimated CRCL calculation 42 ml/min; Estimated Glomerular Filt Rate 50; Glucose 172 mg/dL (65-110); HDL Direct 80 mg/dL; Magnesium 1.9 mg/dL (1.6-2.3); Sodium 140 mmol/L (137-145); Triglycerides 109 mg/dL (<150)
[2024-10-26 07:09] LABS: LDL Cholesterol Direct 127 mg/dL
[2024-10-26 07:19] LABS: Hemoglobin A1C 6.7 % (<5.7)
[2024-10-26 07:46] LABS: Glucose Point of Care 158 mg/dl (65-105)
[2024-10-26] MEDS: ATORVASTATIN 40 MG TABLET 80 MG PO (07:54)
[2024-10-26] MEDS: EZETIMIBE 10 MG TABLET PO (07:54)
[2024-10-26] MEDS: ASPIRIN 81 MG ENTERIC TABLET PO (07:54)
[2024-10-26] MEDS: amLODIPine BESYLATE 5 MG TABLET PO (07:54)
[2024-10-26] MEDS: lisinopriL 20 MG TABLET PO (07:55)
[2024-10-26] MEDS: hydroCHLOROthiazide 25 MG TABLET PO (07:55)
[2024-10-26] MEDS: CLOPIDOGREL BISULFATE 75 MG TABLET PO (07:55)
[2024-10-26] MEDS: INSULIN GLARGINE (*BKC) 100 UNITS/ML 40 UNITS SUB-Q (07:55)
--- NOTE | 2024-10-26 09:00 | P.PNIM_ITS ---
Progress Note: A&P Assessment and Plan (1) Cerebrovascular accident: Code(s): I63.9 - Cerebral infarction, unspecified Status: Acute Assessment and Plan: Neurology consulted Plavix for the next 6 weeks. MRI Acute infarct in the left paramedian area of the carissa. (2) PFO (patent foramen ovale): Code(s): Q21.12 - Patent foramen ovale Status: Acute Assessment and Plan: Echo with bubble several bubbles shunt to left side cardiac chambers suggestive of small patent foramen ovale. Cardiology consulted (3) Left-sided carotid artery disease: Code(s): I77.9 - Disorder of arteries and arterioles, unspecified Status: Acute Assessment and Plan: No acute intervention needed in hospital Follow-up with vascular as an outpatient (4) Hypertension: Code(s): I10 - Essential (primary) hypertension Status: Acute Assessment and Plan: Permissive hypertension Hold home blood pressure meds (5) Hyperlipidemia: Onset Date: Qualifiers: Hyperlipidemia type: unspecified Qualified Code(s): E78.5 - Hyperlipidemia, unspecified Code(s): E78.5 - Hyperlipidemia, unspecified Status: Acute Assessment and Plan: Continue Lipitor (6) Type 2 diabetes mellitus: Onset Date: Qualifiers: Diabetes mellitus complication status: without complication Diabetes mellitus ad terminal makeup operator insulin use: with ad terminal makeup operator use Qualified Code(s): E11.9 - Type 2 diabetes mellitus without complications; Z79.4 - ad terminal makeup operator (current) use of insulin Code(s): E11.9 - Type 2 diabetes mellitus without complications Status: Acute Assessment and Plan: A1c 6.7 Diabetic diet Accu-Cheks a.c. HS Home Lantus and SSI (7) Thyroid nodule: Code(s): E04.1 - Nontoxic single thyroid nodule Status: Acute Assessment and Plan: She needs to establish a primary care provider prior to discharge for close follow-up including follow-up of the thyroid nodules seen on imaging today. Time Spent With Patient Time with patient: 25 - 35 minutes Subjective Date/time seen: 10/26/24 09:00 Interval history: 64-year-old female with history of vertigo, stroke, hypertension, dyslipidemia, and type 2 diabetes mellitus who presented to the emergency department with complaints of right-sided weakness and heaviness. Patient being managed for stroke-like symptoms Plan for MRI today. Review of Systems Review of Systems: 12 systems were reviewed and are negativ e except for as per HPI. Exam Narrative: General: Well-developed, nontoxic-appearing female sitting up in bed no acute distress. Weight: 66.4 kg. BMI: 23.6. HEENT: PERRL, EOMI. Sclera anicteric. Oral mucosa moist. Neck: Supple. Respiratory: Lungs are clear to auscultation bilaterally. Cardiovascular: Regular rate and rhythm with S1-S2. Gastrointestinal: Abdomen is soft, nontender, and nondistended with positive bowel sounds. No organomegaly. Skin: Warm and dry. No rash or lesions on limited exam. Extremities: No cyanosis, clubbing, or edema. Radial and pedal pulses intact. Neurological: Alert and oriented. Cranial nerves 2-12 are grossly intact. Speech is clear. No facial asymmetry. Mild right upper extremity drift. She is able to raise her right arm with some struggling. She is able to raise her right leg off of the bed several inches but falls quickly with mild resistance. Slight dysmetria with right [id number] and [id number]. Psychiatric: Pleasant and cooperative with normal mood and affect. Objective Data Vital Signs Vital Signs: Vital Signs - 24 hr 10/25/24 11:14 10/25/24 11:15 10/25/24 11:16 Temperature Pulse Rate 79 81 82 Respiratory Rate 11 L 19 15 Blood Pressure 210/91 H Pulse Oximetry 100 100 100 Oxygen Delivery 10/25/24 11:17 10/25/24 11:30 10/25/24 11:31 Temperature 97.9 F Pulse Rate 81 76 78 Respiratory Rate 19 13 17 Blood Pressure 210/91 H 206/95 H Pulse Oximetry 100 100 100 Oxygen Delivery 10/25/24 11:32 10/25/24 12:08 10/25/24 12:17 Temperature Pulse Rate 82 74 74 Respiratory Rate 20 19 20 Blood Pressure Pulse Oximetry 100 100 100 Oxygen Delivery 10/25/24 12:30 10/25/24 12:31 10/25/24 12:32 Temperature Pulse Rate 77 68 73 Respiratory Rate 19 11 L 23 H Blood Pressure 206/178 H Pulse Oximetry 92 Oxygen Delivery 10/25/24 13:10 10/25/24 13:14 10/25/24 13:15 Temperature Pulse Rate 82 77 Respiratory Rate 29 H 18 Blood Pressure 188/100 H Pulse Oximetry Oxygen Delivery 10/25/24 13:30 10/25/24 13:45 10/25/24 14:00 Temperature Pulse Rate 73 73 69 Respiratory Rate 19 14 23 H Blood Pressure Pulse Oximetry Oxygen Delivery 10/25/24 14:15 10/25/24 14:32 10/25/24 14:51 Temperature Pulse Rate 71 78 73 Respiratory Rate 21 H 25 H 17 Blood Pressure Pulse Oximetry Oxygen Delivery 10/25/24 15:00 10/25/24 15:03 10/25/24 15:15 Temperature Pulse Rate 68 78 67 Respiratory Rate 16 16 18 Blood Pressure Pulse Oximetry 100 Oxygen Delivery 10/25/24 15:16 10/25/24 15:40 10/25/24 15:41 Temperature Pulse Rate 68 74 69 Respiratory Rate 20 29 H 17 Blood Pressure 176/96 H 190/88 H Pulse Oximetry 99 99 Oxygen Delivery 10/25/24 15:45 10/25/24 15:46 10/25/24 16:00 Temperature Pulse Rate 75 73 74 Respiratory Rate 15 17 12 Blood Pressure 182/99 H Pulse Oximetry Oxygen Delivery 10/25/24 16:01 10/25/24 16:15 10/25/24 16:16 Temperature Pulse Rate 69 78 77 Respiratory Rate 13 19 17 Blood Pressure 177/85 H 167/93 H Pulse Oximetry 100 Oxygen Delivery 10/25/24 16:30 10/25/24 17:13 10/25/24 17:15 Temperature Pulse Rate 73 74 69 Respiratory Rate 15 15 16 Blood Pressure Pulse Oximetry 98 99 99 Oxygen Delivery 10/25/24 20:03 10/25/24 22:00 10/25/24 22:15 Temperature 98.2 F Pulse Rate 88 76 Respiratory Rate 18 Blood Pressure 190/92 H Pulse Oximetry 98 98 Oxygen Delivery Room Air 10/26/24 00:02 10/26/24 04:03 10/26/24 06:00 Temperature 98.6 F Pulse Rate 73 67 61 Respiratory Rate 18 Blood Pressure 149/87 H Pulse Oximetry 100 Oxygen Delivery 10/26/24 07:53 10/26/24 08:00 Temperature Pulse Rate Respiratory Rate Blood Pressure 146/78 H Pulse Oximetry Oxygen Delivery Room Air Intake/Output Intake/Output: Intake & Output 10/23/24 10/24/24 10/25/24 10/26/24 23:59 23:59 23:59 23:59 Intake Total 0 Balance 0 Meds/Results Medications: Active Medications Generic Name Dose Route Start Last Admin Trade Name Freq PRN Reason Stop Dose Admin Acetaminophen 650 mg 10/25/24 15:54 Acetaminophen 325 Mg Tablet PO Q4H PRN Mild Pain (1-3) or Fever Hydrocodone Bitart/Acetaminophen 1 tab 10/25/24 15:54 Hydrocodone/Acetaminophen (*Crx) 5-325 Mg Tablet PO Q4H PRN Pain Rated 4-6 Amlodipine Besylate 5 mg 10/26/24 09:00 10/26/24 07:54 Amlodipine Besylate 5 Mg Tablet PO 5 mg DAILY OSCAR Administration Aspirin 81 mg 10/26/24 09:00 10/26/24 07:54 Aspirin 81 Mg Enteric Tablet PO 81 mg DAILY OSCAR Administration Atorvastatin Calcium 80 mg 10/26/24 09:00 10/26/24 07:54 Atorvastatin 40 Mg Tablet PO 80 mg DAILY OSCAR Administration Clopidogrel Bisulfate 75 mg 10/26/24 09:00 10/26/24 07:55 Clopidogrel Bisulfate 75 Mg Tablet PO 75 mg QAM OSCAR Administration Dextrose 12.5 gm 10/25/24 20:23 Dextrose 50% 25 Gm/50 Ml Syringe IV PUSH PRN PRN Hypoglycemia Protocol Ezetimibe 10 mg 10/26/24 09:00 10/26/24 07:54 Ezetimibe 10 Mg Tablet PO 10 mg DAILY OSCAR Administration Fluticasone Propionate 1 spray 10/25/24 20:25 Fluticasone Propionate 0.05% Na Spr 16 Gm Btl (*Bkc) NASAL DAILY PRN allergy symptoms Glucagon 1 mg 10/25/24 20:23 Glucagon For Inj 1 Mg Vial IM PRN PRN Hypoglycemia Protocol Glucose 15 gm 10/25/24 20:23 Glucose Oral Gel 15 Gm Of Glucse In 37.5 Gm Tube PO PRN PRN Hypoglycemia Protocol Hydrochlorothiazide 25 mg 10/26/24 09:00 10/26/24 07:55 Hydrochlorothiazide 25 Mg Tablet PO 25 mg DAILY OSCAR Administration Dextrose 1,000 mls @ 100 mls/hr 10/25/24 20:23 Dextrose 5% 1,000 Ml IVPB PRN PRN Hypoglycemia Protocol Insulin Aspart 1 - 3 units 10/25/24 21:00 10/25/24 22:49 Insulin Aspart (*Bkc) 100 Units/Ml SUB-Q Not Given HS OSCAR Protocol Insulin Aspart 3 - 6 units 10/26/24 08:00 10/26/24 07:55 Insulin Aspart (*Bkc) 100 Units/Ml SUB-Q Not Given TIDWM OSCAR Protocol Insulin Glargine 40 units 10/26/24 09:00 10/26/24 07:55 Insulin Glargine (*Bkc) 100 Units/Ml SUB-Q 40 units DAILY OSCAR Administration Lisinopril 20 mg 10/26/24 09:00 10/26/24 07:55 Lisinopril 20 Mg Tablet PO 20 mg DAILY OSCAR Administration Ondansetron HCl 4 mg 10/25/24 15:54 Ondansetron Inj 4 Mg/2 Ml Vial IV PUSH Q4H PRN Nausea Perflutren Lipid Microsphere 0 ml 10/25/24 20:23 Perflutren Lipid Microspheres 1.5 Ml Vial Diluted To 10 Ml Total Volume IV PUSH 10/28/24 20:24 ONCE PRN adequate visualization Protocol Radiology Results: ITS Impressions Chest X-Ray 10/25/24 13:07 IMPRESSION: 1. Mild discoid atelectasis/scarring at the bilateral lower lung zones. No other acute cardiopulmonary disease. Head/Neck CTA 10/25/24 15:04 IMPRESSION: 1. Normal CTA head. 2. CTA neck. Percent stenosis per NASCET criteria is 60% on the left side. 3. Bilateral thyroid nodules. Further evaluation advised Labs Labs: Laboratory Results - last 24 hr 10/25/24 10/25/24 10/25/24 11:55 12:18 12:35 WBC 5.3 RBC 4.04 L Hgb 12.1 Hct 38.6 MCV 95.5 MCH 30.0 MCHC 31.3 L RDW 12.0 Plt Count 368 MPV 10.1 Immature Gran % (Auto) 0.0 Neut % (Auto) 59.7 Lymph % (Auto) 34.2 [place] % (Auto) 3.8 Eos % (Auto) 1.9 Baso % (Auto) 0.4 Lymph # (Auto) 1.81 [place] # (Auto) 0.2 Eos # (Auto) 0.1 Baso # (Auto) 0.0 Abs Immat Gran (auto) 0.00 Absolute Neuts (auto) 3.2 Absolute Nucleated RBC 0.000 Nucleated RBC % 0.0 Sodium 140 Potassium 3.7 Chloride 105 Carbon Dioxide 24 Anion Gap 11 BUN 9 Creatinine 1.08 H Estim Creat Clear Calc 43 Estimated GFR 51 L Glucose 170 H POC Capillary Glucose Hemoglobin A1c Calcium 9.5 Magnesium Total Bilirubin 0.7 AST 20 ALT 11 Alkaline Phosphatase 96 Total Protein 8.0 Albumin 4.7 Triglycerides Cholesterol LDL Cholesterol Direct HDL Direct Urine Color Yellow Urine Appearance Clear Urine pH 6.5 Ur Specific [place] 1.015 Urine Protein Negative Urine Glucose (UA) 3+ H Urine Ketones Negative Ur Blood (Man) Negative Urine Nitrate Negative Urine Bilirubin Negative Urine Urobilinogen 0.2 Leukocyte Esterase Rfl Negative 10/25/24 10/26/24 10/26/24 21:38 05:41 07:37 WBC RBC Hgb Hct MCV MCH MCHC RDW Plt Count MPV Immature Gran % (Auto) Neut % (Auto) Lymph % (Auto) [place] % (Auto) Eos % (Auto) Baso % (Auto) Lymph # (Auto) [place] # (Auto) Eos # (Auto) Baso # (Auto) Abs Immat Gran (auto) Absolute Neuts (auto) Absolute Nucleated RBC Nucleated RBC % Sodium 140 Potassium 4.0 Chloride 105 Carbon Dioxide 23 Anion Gap 12 BUN 13 Creatinine 1.09 H Estim Creat Clear Calc 42 Estimated GFR 50 L Glucose 172 H POC Capillary Glucose 166 H 158 H Hemoglobin A1c 6.7 H Calcium 9.5 Magnesium 1.9 Total Bilirubin AST ALT Alkaline Phosphatase Total Protein Albumin Triglycerides 109 Cholesterol 267 H LDL Cholesterol Direct 127 HDL Direct 80 Urine Color Urine Appearance Urine pH Ur Specific [place] Urine Protein Urine Glucose (UA) Urine Ketones Ur Blood (Man) Urine Nitrate Urine Bilirubin Urine Urobilinogen Leukocyte Esterase Rfl Quality VTE Prophylaxis VTE prophylaxis: mechanical ordered
[2024-10-26 12:11] LABS: Glucose Point of Care 116 mg/dl (65-105)
--- NOTE | 2024-10-26 12:56 | P.CONNEU_ITS ---
Assessment and Plan Assessment and plan (1) Left-sided carotid artery disease: Code(s): I77.9 - Disorder of arteries and arterioles, unspecified Status: Acute (2) Hypertension: Code(s): I10 - Essential (primary) hypertension Status: Acute (3) Acute CVA (cerebrovascular accident): Code(s): I63.9 - Cerebral infarction, unspecified Status: Acute (4) Hyperlipidemia: Onset Date: ~2014 Qualifiers: Hyperlipidemia type: unspecified Qualified Code(s): E78.5 - Hyperlipidemia, unspecified Code(s): E78.5 - Hyperlipidemia, unspecified Status: Acute Plan 1. Acute infarct in the left paramedian area of the carissa that is brainstem stroke. 2. 60% stenosis on the left side of the carotid as per the CTA report but in the body of the report mentioned only 6% this needs to be clarified with the radiologist. 3. Hypercholesteremia with cholesterol of 267 and LDL of 127 but HDL 8 0. Patient already receiving aspirin 81mg daily, atorvastatin 80mg daily insulin 40units subQ daily, will add Plavix 75mg daily for the next 6 weeks. 4. Will obtain the echocardiogram with bubble study as well, the report is available and it has been mentioned with several bubbles shunt turned to the left side suggestive of a small patent foramen ovale along the tricuspid regurgitation, patient will benefit from the Cardiology consultation as Well. Consult date: 10/26/24 HPI: Vita Chu is a 64 year old female admitted to the hospital through the emergency room for the complaint of weakness of the right side and with the possibility of the stroke because of the sudden onset of right-sided numbness and weakness along with the slurred speech patient has been taking baby aspirin daily but no anticoagulation therapy she was brought to the ER by the co-worker who noted the weakness and slurred speech. Patient has been taking aspirin 81mg daily, in addition to ascorbic acid, and she is reportedly allergic to metformin and sulfonamide. She does have ongoing history of benign positional vertigo, hypertension, type 2 diabetes mellitus, and vitamin-D deficiency. She does not drink alcohol, and does not smoke. On initial exam in the emergency room she was found to have no focal neurological deficit except the decreased pinprick sensation in the right upper and right lower extremity and difficulties in performing heel to knee to ruiz on the right side. Her initial vital signs were normal except the blood pressure 167/93. her CBC was normal, BMP was normal, and mast scan was normal also. Her initial chest x-ray was negative, head and neck CTA documented 60% stenosis on the left side with bilateral thyroid nodules. He was admitted to the hospital with the diagnosis of stroke. Initial CTA of the head and neck revealed 60% stenosis on the left side on in addition to bilateral thyroid nodules, and brain MRI documented acute infarct in the left paramedian area of the carissa. Review of Systems 2 Review of Systems: All systems reviewed & are unremarkable except as noted in HPI and below PMFSH Past Medical History Medical History Cerebrovascular accident Seasonal allergies Hypertension Chronic pain of left knee Benign positional vertigo (~09/2022) Vitamin D deficiency Anemia (~1979) Hyperlipidemia (~2014) Type 2 diabetes mellitus (~2014) Surgical History Surgical History (Updated 10/25/24 @ 22:40 by Evonne Becker PA-C) History of orthopedic surgery Family History Family History (Reviewed 07/09/23 @ 10:11 by Marquita Vidal [facility]) Sibling Diabetes mellitus Colon polyp Mother Hypertension Cardiovascular disease Sibling Family history of thyroid disease Malignant neoplasm of prostate Diabetes mellitus, Onset Age: 60 Carcinoma of colon, Onset Age: 60 Father Hypertension Family history of lung cancer Mother Hypertension, Onset Age: 52 Family history of coronary artery disease Family history of cardiovascular disease, Onset Age: 52 Social History Social History (Updated 10/25/24 @ 22:40 by Evonne Becker PA-C) Social History: Surrogate medical decision maker: Tata Hurt, sibling. Code status: Full code. Smoking status: Never smoker Second hand tobacco smoke exposure: No Alcohol intake: never Substance use: never Substance use type: does not use Do You Feel Safe in your Home?: Yes Lack of Transportation: No Lack of Food: Often True Current Housing: I Have Housing Concerned About Future Housing: YES Difficulty Paying Gas/Electric Bills: YES Difficulty Paying for Meds: YES Currently Unemployed: No Education: Associate Degree Difficulty w/ Childcare or Family Care: No Living arrangements: with family Occupation/Education: occupation Additional occupation/education comments: Retired, works part-time at [employer] Spiritual care concerns: No Agree to blood products: Yes Meds Home Medications and Allergies Home Medications ?Medication ?Instructions ?Recorded ?Confirmed ?Type aspirin 81 mg tablet,delayed 81 mg PO DAILY 07/27/19 10/25/24 History release (Adult Aspirin Regimen) blood sugar diagnostic (Blood #100 ea 08/16/20 10/25/24 Rx Glucose Test strips) blood-glucose meter (OneTouch #1 ea 08/16/20 10/25/24 Rx Verio Flex Start kit) lancets 28 gauge (Comfort EZ #100 ea 08/16/20 10/25/24 Rx Lancets) meloxicam 7.5 mg tablet 7.5 mg PO DAILY #30 tabs 09/10/22 10/25/24 Rx amlodipine 5 mg tablet 5 mg PO DAILY #90 tabs 10/03/22 10/25/24 Rx lisinopril 20 1 tablet PO DAILY #90 tabs 10/03/22 10/25/24 Rx mg-hydrochlorothiazide 25 mg tablet fluticasone propionate 50 1 spray intranasal DAILY PRN 11/20/22 10/25/24 History mcg/actuation nasal allergy symptoms spray,suspension (Flonase Allergy Relief) ezetimibe 10 mg tablet (Zetia) 10 mg PO DAILY #90 tabs 04/24/23 10/25/24 Rx meclizine 25 mg tablet 25 mg PO TID PRN dizziness #30 tabs 11/18/23 10/25/24 Rx atorvastatin 80 mg tablet (Lipitor) 80 mg PO DAILY 10/25/24 10/25/24 History insulin glargine 100 unit/mL (3 40 unit subcut DAILY 10/25/24 10/25/24 History mL) subcutaneous pen (Lantus Solostar U-100 Insulin) Allergies Allergy/AdvReac Type Severity Reaction Status Date / Time pineapple Allergy Severe HIVES/ANAPH Verified 10/25/24 11:06 YLAXIS metformin Allergy Unknown Nausea and Verified 10/25/24 11:06 Vomiting Sulfa (Sulfonamide Allergy Unknown Unknown Verified 10/25/24 11:06 Antibiotics) SEA-[place] SEAFOOD Allergy Severe ANAPHYLAXIS Uncoded 10/25/24 11:06 Vital Signs Vital Signs - 24 hr 10/25/24 13:10 10/25/24 13:14 10/25/24 13:15 Temperature Pulse Rate 82 77 Respiratory Rate 29 H 18 Blood Pressure 188/100 H Pulse Oximetry Oxygen Delivery 10/25/24 13:30 10/25/24 13:45 10/25/24 14:00 Temperature Pulse Rate 73 73 69 Respiratory Rate 19 14 23 H Blood Pressure Pulse Oximetry Oxygen Delivery 10/25/24 14:15 10/25/24 14:32 10/25/24 14:51 Temperature Pulse Rate 71 78 73 Respiratory Rate 21 H 25 H 17 Blood Pressure Pulse Oximetry Oxygen Delivery 10/25/24 15:00 10/25/24 15:03 10/25/24 15:15 Temperature Pulse Rate 68 78 67 Respiratory Rate 16 16 18 Blood Pressure Pulse Oximetry 100 Oxygen Delivery 10/25/24 15:16 10/25/24 15:40 10/25/24 15:41 Temperature Pulse Rate 68 74 69 Respiratory Rate 20 29 H 17 Blood Pressure 176/96 H 190/88 H Pulse Oximetry 99 99 Oxygen Delivery 10/25/24 15:45 10/25/24 15:46 10/25/24 16:00 Temperature Pulse Rate 75 73 74 Respiratory Rate 15 17 12 Blood Pressure 182/99 H Pulse Oximetry Oxygen Delivery 10/25/24 16:01 10/25/24 16:15 10/25/24 16:16 Temperature Pulse Rate 69 78 77 Respiratory Rate 13 19 17 Blood Pressure 177/85 H 167/93 H Pulse Oximetry 100 Oxygen Delivery 10/25/24 16:30 10/25/24 17:13 10/25/24 17:15 Temperature Pulse Rate 73 74 69 Respiratory Rate 15 15 16 Blood Pressure Pulse Oximetry 98 99 99 Oxygen Delivery 10/25/24 20:03 10/25/24 22:00 10/25/24 22:15 Temperature 36.8 C Pulse Rate 88 76 Respiratory Rate 18 Blood Pressure 190/92 H Pulse Oximetry 98 98 Oxygen Delivery Room Air 10/26/24 00:02 10/26/24 04:03 10/26/24 06:00 Temperature 37.0 C Pulse Rate 73 67 61 Respiratory Rate 18 Blood Pressure 149/87 H Pulse Oximetry 100 Oxygen Delivery 10/26/24 07:53 10/26/24 08:00 Temperature Pulse Rate Respiratory Rate Blood Pressure 146/78 H Pulse Oximetry Oxygen Delivery Room Air Exam 2 Narrative: Exam today revealed her to be awake alert oriented x3, her speech was not dysphasic not dysarthric not dysphonic, she was able to follow the verbal commands appropriately, head was normocephalic with no bruit, ear nose throat examination was normal, neck was supple with no cervical bruit no thyromegaly no lymphadenopathy, heart was regular with no murmur, lungs were clear to auscultation with no rhonchi or crepitations, abdomen is soft nontender with normal bowel sounds, extremities normal, neurological examination revealed her to be awake alert oriented with speech not dysphasic not dysarthric and not dysphonic, pupils round regular reacting to light equally, feels the vision full in all 4 quadrants, extraocular movements full with no nystagmus, facial sensation intact, face symmetrical ,tongue in oral cavity with no fasciculation and motor examination revealed her to have normal strength and tone in upper and lower extremities on the left side but she had difficulties in using the right upper and right lower extremity. Plantar responses were downgoing Results Labs 10/25/24 12:35 10/26/24 05:41 Labs: BMP 10/26/24 05:41 Sodium 140 Potassium 4.0 Chloride 105 Carbon Dioxide 23 BUN 13 Creatinine 1.09 H Glucose 172 H Calcium 9.5
[2024-10-26 16:29] LABS: Glucose Point of Care 155 mg/dl (65-105)
--- NOTE | 2024-10-26 20:24 | ECHO_ITS ---
Patient Info Name: Vita Chu Age: 64 years : 1960 Gender: Female Ht: 66 in Wt: 146 lbs BSA: 1.76 m2 HR: 67 bpm BP: 190 / 92 mmHg Heart Rhythm: Sinus Rhythm Technical Quality: Good Exam Date: 10/26/2024 10:33 AM Exam Location: Echo Lab Patient Status: Inpatient Admit Date: 10/25/2024 Staff Ordering Physician: Evonne Becker PA-C Sr. Strategic Sourcing Manager: Erica Mcdaniels RDCS Attending Provider: Ingris Ford MD Referring Physician: Eugenio STEVENSON; Exam Type: CA echo doppler w bubble study Study Info Indications - CVA Complete two-dimensional, color flow and Doppler transthoracic echocardiogram is performed with agitated saline. Contrast/Agitated Saline Contrast/Ag. Saline: Agitated Saline Amount: 20.00 ml Administered By: Erica Mcdaniels RDCS Existing IV Access: Yes IV Access Condition: patent with no signs of infiltration Summary 1. Left ventricular chamber dimension is normal. 2. Left ventricular systolic function is hyperdynamic, estimated at >70%. 3. The left ventricular diastolic function is grade I diastolic dysfunction. 4. E/e' 10 is mildly elevated. 5. Agitated saline injection with and without valsalva maneuver opacified right side cardiac chambers with several bubbles shunt to left side cardiac chambers suggestive of small patent foramen ovale. 6. There is trace tricuspid valve regurgitation. 7. No pulmonary hypertension, estimated pulmonary arterial systolic pressure is 39 mmHg. Left Ventricle E/e' 10 is mildly elevated. Left ventricular chamber dimension is normal. Left ventricular systolic function is hyperdynamic, estimated at >70%. The left ventricular diastolic function is grade I diastolic dysfunction. Right Ventricle Right ventricular systolic function is normal and with normal TAPSE 1.8 cm. Right ventricular chamber dimension is normal. Left Atria Left atrial chamber dimension is normal. Right Atria Right atrial chamber dimension is normal. Atrial Septum Agitated saline injection with and without valsalva maneuver opacified right side cardiac chambers with several bubbles shunt to left side cardiac chambers suggestive of small patent foramen ovale. Aortic Valve The aortic valve is trileaflet. There is no aortic valve stenosis. There is no aortic valve regurgitation. Pulmonic Valve There is no pulmonic regurgitation. Mitral Valve There is no mitral valve stenosis. There is no mitral valve regurgitation. Tricuspid Valve There is trace tricuspid valve regurgitation. No pulmonary hypertension, estimated pulmonary arterial systolic pressure is 39 mmHg. Pericardium/Pleural There is no pericardial effusion. Inferior Vena Cava Normal inferior vena cava with >50% collapse upon inspiration consistent with normal right atrial pressure, 5 mmHg. Aorta The aortic root size at the sinus of Valsalva is normal. Left Ventricular Outflow Tract Name Value Normal LVOT 2D LVOT Diameter 1.9 cm LVOT Doppler LVOT Peak Gradient 11 mmHg LVOT Mean Gradient 5 mmHg LVOT VTI 26 cm LVOT VTI/AV VTI Ratio 0.9 LVOT Stroke Volume 71 ml LVOT CO 4.6 l/min LVOT CI 2.6 l/min/m2 Pulmonic Valve Name Value Normal RVOT Doppler RVOT Peak Gradient 3 mmHg PV Doppler PV Peak Gradient 5 mmHg Mitral Valve Name Value Normal MV Doppler MV Decel [place] 160 cm/s2 MV PHT 104 ms MV Area (PHT) 2.1 cm2 4.0-5.0 MV Diastolic Function MV E Peak Velocity 57 cm/s MV A Peak Velocity 76 cm/s MV E/A 0.8 MV Decel Time 359 ms MV Annular TDI MV E/e' (Septal) 17.4 <=8.0 MV E/e' (Lateral) 8.0 <=8.0 MV E/e' (Average) 12.7 Tricuspid Valve Name Value Normal TV Regurgitation Doppler TR Peak Velocity 291 cm/s TR Peak Gradient 24 mmHg Estimated PAP/RSVP RA Pressure 5 mmHg <=5 PA Systolic Pressure 39 mmHg <36 RV Systolic Pressure 39 mmHg <36 Aorta Name Value Normal Ascending Aorta Ao Root Diameter (MM) 2.6 cm Ao Root Diam Index (MM) 1.5 cm/m2 Aortic Valve Name Value Normal AV Doppler AV Peak Velocity 198 cm/s AV Peak Gradient 16 mmHg AV Mean Gradient 7 mmHg AV VTI 28 cm AV Area (Cont Eq VTI) 2.5 cm2 >=3.0 AV Area (Cont Eq Jude) 2.3 cm2 AV Regurgitation 2D LVOT Area 2.7 cm2 Ventricles Name Value Normal LV Dimensions 2D/MM IVS Diastolic Thickness (2D) 1.1 cm 0.6-1.0 LVID Diastole (2D) 3.4 cm 3.8-5.2 LVIW Diastolic Thickness (2D) 0.8 cm 0.6-0.9 LVID Systole (2D) 2.2 cm 2.2-3.5 LVOT Diameter 1.9 cm LV Mass (2D Cubed) 95.72 g 67.00-162.00 LV Mass Index (2D Cubed) 54 g/m2 43-95 Relative Wall Thickness (2D) 0.47 LV Fractional Shortening/Ejection Fraction 2D/MM LV Fractional Shortening (2D) 36 % 27-45 LV EF (2D Teicholz) 67 % 54-74 LV Diastolic Volume (4C MOD) 46 ml LV EF (4C MOD) 71 % LV Diastolic Volume (2C MOD) 45 ml LV EF (2C MOD) 72 % LV Diastolic Volume (BP MOD) 45 ml 46-106 LV Diastolic Volume Index (BP MOD) 26 ml/m2 29-61 LV Systolic Volume (BP MOD) 13 ml 14-42 LV Systolic Volume Index (BP MOD) 7 ml/m2 8-24 LV EF (BP MOD) 71 % 54-74 LV Diastolic Length (4C) 6.7 cm LV Systolic Length (4C) 5.0 cm LV Stroke Volume (4C MOD) 33 ml Atria Name Value Normal LA Dimensions LA Dimension (MM) 3.8 cm 2.7-3.8 LA Volume (4C A-L) 37 ml LA Volume (BP A-L) 41 ml RA Dimensions RA Area (4C) 9.4 cm2 <=18.0 Report Signatures
[2024-10-26 20:27] LABS: Glucose Point of Care 166 mg/dl (65-105)
[2024-10-27 04:00] VITALS: PULSE 69
[2024-10-27 04:06] VITALS: BP 116/65; PULSE 55; RESP 16; TEMP 36.4; O2SAT 99
[2024-10-27 06:19] LABS: Hematocrit 36.3 % (37.0-47.0); Hemoglobin 11.3 g/dL (12.0-15.0); Mean Corpuscular HGB Conc 31.1 g/dl (32-36); Mean Corpuscular Hemoglobin 29.7 pg (26-34); Mean Corpuscular Volume 95.3 fl (80-100); Mean Platelet Volume 10.1 fl (7.4-10.4); Platelet Count Result 328 k/mm3 (150-375); Red Blood Count 3.81 M/mm3 (4.2-5.4); White Blood Count 6.2 K/mm3 (4.5-10.0)
[2024-10-27 06:32] LABS: Anion Gap 6 mmol/L (4-12); Blood Urea Nitrogen 22 mg/dL (7-17); Calcium 9.3 mg/dL (8.4-10.2); Carbon Dioxide 28 mmol/L (22-30); Chloride 103 mmol/L (98-107); Estimated CRCL calculation 39 ml/min; Estimated Glomerular Filt Rate 45; Glucose 138 mg/dL (65-110); Potassium 4.1 mmol/L (3.4-5.0); Sodium 137 mmol/L (137-145)
--- NOTE | 2024-10-27 07:53 | P.PNIM_ITS ---
Progress Note: A&P Assessment and Plan (1) Cerebrovascular accident: Code(s): I63.9 - Cerebral infarction, unspecified Status: Acute Assessment and Plan: * Neurology consulted * Plavix for the next 6 weeks. * MRI Acute infarct in the left paramedian area of the carissa. (2) PFO (patent foramen ovale): Code(s): Q21.12 - Patent foramen ovale Status: Acute Assessment and Plan: * Echo with bubble several bubbles shunt to left side cardiac * chambers suggestive of small patent foramen ovale. * Cardiology consulted (3) Left-sided carotid artery disease: Code(s): I77.9 - Disorder of arteries and arterioles, unspecified Status: Acute Assessment and Plan: * No acute intervention needed in hospital * Follow-up with vascular as an outpatient (4) Hypertension: Code(s): I10 - Essential (primary) hypertension Status: Acute Assessment and Plan: * 116/65 * Hold home blood pressure meds (5) Hyperlipidemia: Onset Date: Qualifiers: Hyperlipidemia type: unspecified Qualified Code(s): E78.5 - Hyperlipidemia, unspecified Code(s): E78.5 - Hyperlipidemia, unspecified Status: Acute Assessment and Plan: * Continue Lipitor (6) Type 2 diabetes mellitus: Onset Date: Qualifiers: Diabetes mellitus complication status: without complication Diabetes mellitus ad terminal makeup operator insulin use: with ad terminal makeup operator use Qualified Code(s): E11.9 - Type 2 diabetes mellitus without complications; Z79.4 - termination clerk (current) use of insulin Code(s): E11.9 - Type 2 diabetes mellitus without complications Status: Acute Assessment and Plan: * A1c 6.7 * Diabetic diet * Accu-Cheks a.c. HS * Home Lantus and SSI (7) Thyroid nodule: Code(s): E04.1 - Nontoxic single thyroid nodule Status: Acute Assessment and Plan: * She needs to establish a primary care provider prior to discharge for close follow-up including follow-up of the thyroid nodules seen on imaging today. Plan Subjective Date/time seen: 10/27/24 07:53 Interval history: 64-year-old female with history of vertigo, stroke, hypertension, dyslipidemia, and type 2 diabetes mellitus who presented to the emergency department with complaints of right-sided weakness and heaviness. Patient being managed for stroke-like symptoms 10/27/2024 Patient is sitting comfortably in bed at time of examination. Pt denies any chest pain, shortness of breath, n/v, abdominal pain, headaches, dizziness, or difficulty ambulating at this time. Plan to continue working with PT/OT and to consult cardiology for PFO. Plan for likely discharge tomorrow. Review of Systems Review of Systems: 12 systems were reviewed and are negativ e except for as per HPI. Exam Narrative: General: Well-developed, nontoxic-appearing female sitting up in bed no acute distress. Weight: 66.4 kg. BMI: 23.6. HEENT: PERRL, EOMI. Sclera anicteric. Oral mucosa moist. Neck: Supple. Respiratory: Lungs are clear to auscultation bilaterally. Cardiovascular: Regular rate and rhythm with S1-S2. Gastrointestinal: Abdomen is soft, nontender, and nondistended with positive bowel sounds. No organomegaly. Skin: Warm and dry. No rash or lesions on limited exam. Extremities: No cyanosis, clubbing, or edema. Radial and pedal pulses intact. Neurological: Alert and oriented. Cranial nerves 2-12 are grossly intact. Speech is clear. No facial asymmetry. Normal strength and tone in Upper/Lower extremities on L side but continued difficulty on Right upper/lower extremities. Psychiatric: Pleasant and cooperative with normal mood and affect. Objective Data Vital Signs Vital Signs: Vital Signs - 24 hr 10/26/24 08:00 10/26/24 08:00 10/26/24 12:41 Temperature Pulse Rate 75 Respiratory Rate Blood Pressure Pulse Oximetry Oxygen Delivery Room Air Room Air 10/26/24 13:15 10/26/24 14:00 10/26/24 16:00 Temperature 97.6 F Pulse Rate 76 75 Respiratory Rate 18 Blood Pressure 132/63 Pulse Oximetry 100 Oxygen Delivery Room Air 10/26/24 20:00 10/26/24 20:39 10/26/24 23:38 Temperature 97.5 F L Pulse Rate 61 68 80 Respiratory Rate 16 Blood Pressure 122/73 Pulse Oximetry 99 Oxygen Delivery 10/27/24 04:00 10/27/24 04:06 Temperature 97.6 F Pulse Rate 69 55 L Respiratory Rate 16 Blood Pressure 116/65 Pulse Oximetry 99 Oxygen Delivery Intake/Output Intake/Output: Intake & Output 10/24/24 10/25/24 10/26/24 10/27/24 23:59 23:59 23:59 23:59 Intake Total 2220 100 Balance 2220 100 Meds/Results Medications: Active Medications Generic Name Dose Route Start Last Admin Trade Name Freq PRN Reason Stop Dose Admin Acetaminophen 650 mg 10/25/24 15:54 Acetaminophen 325 Mg Tablet PO Q4H PRN Mild Pain (1-3) or Fever Hydrocodone Bitart/Acetaminophen 1 tab 10/25/24 15:54 Hydrocodone/Acetaminophen (*Crx) 5-325 Mg Tablet PO Q4H PRN Pain Rated 4-6 Amlodipine Besylate 5 mg 10/26/24 09:00 10/26/24 07:54 Amlodipine Besylate 5 Mg Tablet PO 5 mg DAILY OSCAR Administration Aspirin 81 mg 10/26/24 09:00 10/26/24 07:54 Aspirin 81 Mg Enteric Tablet PO 81 mg DAILY OSCAR Administration Atorvastatin Calcium 80 mg 10/26/24 09:00 10/26/24 07:54 Atorvastatin 40 Mg Tablet PO 80 mg DAILY OSCAR Administration Clopidogrel Bisulfate 75 mg 10/26/24 09:00 10/26/24 07:55 Clopidogrel Bisulfate 75 Mg Tablet PO 75 mg QAM OSCAR Administration Dextrose 12.5 gm 10/25/24 20:23 Dextrose 50% 25 Gm/50 Ml Syringe IV PUSH PRN PRN Hypoglycemia Protocol Ezetimibe 10 mg 10/26/24 09:00 10/26/24 07:54 Ezetimibe 10 Mg Tablet PO 10 mg DAILY OSCAR Administration Fluticasone Propionate 1 spray 10/25/24 20:25 Fluticasone Propionate 0.05% Na Spr 16 Gm Btl (*Bkc) NASAL DAILY PRN allergy symptoms Glucagon 1 mg 10/25/24 20:23 Glucagon For Inj 1 Mg Vial IM PRN PRN Hypoglycemia Protocol Glucose 15 gm 10/25/24 20:23 Glucose Oral Gel 15 Gm Of Glucse In 37.5 Gm Tube PO PRN PRN Hypoglycemia Protocol Hydrochlorothiazide 25 mg 10/26/24 09:00 10/26/24 07:55 Hydrochlorothiazide 25 Mg Tablet PO 25 mg DAILY OSCAR Administration Dextrose 1,000 mls @ 100 mls/hr 10/25/24 20:23 Dextrose 5% 1,000 Ml IVPB PRN PRN Hypoglycemia Protocol Insulin Aspart 1 - 3 units 10/25/24 21:00 10/26/24 20:29 Insulin Aspart (*Bkc) 100 Units/Ml SUB-Q Not Given HS OSCAR Protocol Insulin Aspart 3 - 6 units 10/26/24 08:00 10/26/24 16:42 Insulin Aspart (*Bkc) 100 Units/Ml SUB-Q Not Given TIDWM OSCAR Protocol Insulin Glargine 40 units 10/26/24 09:00 10/26/24 07:55 Insulin Glargine (*Bkc) 100 Units/Ml SUB-Q 40 units DAILY OSCAR Administration Lisinopril 20 mg 10/26/24 09:00 10/26/24 07:55 Lisinopril 20 Mg Tablet PO 20 mg DAILY OSCAR Administration Meclizine HCl 25 mg 10/26/24 09:03 Meclizine Hcl 25 Mg Tablet PO TID PRN dizziness Ondansetron HCl 4 mg 10/25/24 15:54 Ondansetron Inj 4 Mg/2 Ml Vial IV PUSH Q4H PRN Nausea Perflutren Lipid Microsphere 0 ml 10/25/24 20:23 Perflutren Lipid Microspheres 1.5 Ml Vial Diluted To 10 Ml Total Volume IV PUSH 10/28/24 20:24 ONCE PRN adequate visualization Protocol Radiology Results: ITS Impressions Chest X-Ray 10/25/24 13:07 IMPRESSION: 1. Mild discoid atelectasis/scarring at the bilateral lower lung zones. No other acute cardiopulmonary disease. Head/Neck CTA 10/25/24 15:04 IMPRESSION: 1. Normal CTA head. 2. CTA neck. Percent stenosis per NASCET criteria is 60% on the left side. 3. Bilateral thyroid nodules. Further evaluation advised Brain MRI 10/26/24 12:06 IMPRESSION: 1. Acute infarct in the left paramedian area of the carissa. 2. No other acute abnormality seen. Labs Labs: Laboratory Results - last 24 hr 10/26/24 10/26/24 10/26/24 12:09 16:21 20:07 WBC RBC Hgb Hct MCV MCH MCHC RDW Plt Count MPV Sodium Potassium Chloride Carbon Dioxide Anion Gap BUN Creatinine Estim Creat Clear Calc Estimated GFR Glucose POC Capillary Glucose 116 H 155 H 166 H Calcium 10/27/24 06:06 WBC 6.2 RBC 3.81 L Hgb 11.3 L Hct 36.3 L MCV 95.3 MCH 29.7 MCHC 31.1 L RDW 12.0 Plt Count 328 MPV 10.1 Sodium 137 Potassium 4.1 Chloride 103 Carbon Dioxide 28 Anion Gap 6 BUN 22 H Creatinine 1.19 H Estim Creat Clear Calc 39 Estimated GFR 45 L Glucose 138 H POC Capillary Glucose Calcium 9.3 Quality VTE Prophylaxis VTE prophylaxis: mechanical ordered
[2024-10-27 08:00] VITALS: PULSE 72
[2024-10-27 08:15] LABS: Glucose Point of Care 142 mg/dl (65-105)
[2024-10-27] MEDS: EZETIMIBE 10 MG TABLET PO (08:24)
[2024-10-27] MEDS: ASPIRIN 81 MG ENTERIC TABLET PO (08:24)
[2024-10-27] MEDS: amLODIPine BESYLATE 5 MG TABLET PO (08:24)
[2024-10-27] MEDS: CLOPIDOGREL BISULFATE 75 MG TABLET PO (08:24)
[2024-10-27] MEDS: ATORVASTATIN 40 MG TABLET 80 MG PO (08:24)
[2024-10-27] MEDS: INSULIN GLARGINE (*BKC) 100 UNITS/ML 40 UNITS SUB-Q (08:30)
[2024-10-27 12:00] VITALS: PULSE 77
[2024-10-27 12:02] LABS: Glucose Point of Care 159 mg/dl (65-105)
--- NOTE | 2024-10-27 13:44 | PM.CNCAR ---
Assessment and Plan Assessment and plan (1) Cerebrovascular accident: Code(s): I63.9 - Cerebral infarction, unspecified Status: Acute (2) PFO (patent foramen ovale): Code(s): Q21.12 - Patent foramen ovale Status: Acute Plan Patient's RoPE score is 2, which means that it is unlikely that the stroke is attributable to the PFO. Most likely the PFO is an incidental finding in this case. In addition, the studies showing benefit of PFO closure were done in patients younger than 60 years of age, therefore, benefit of PFO closure in patients older than 60 is of unclear benefit. Given RoPE score indicates that PFO unlikely to have caused CVA, would not proceed with PFO closure. Recommend 30 day event monitor at time of discharge to rule out atrial fibrillation (order for monitor placed; patient can get the monitor placed in our office during business hours). Further management of CVA as per Neurology and Hospitalist. Cardiology will sign off at this time. History of Present Illness History of Present Illness Consult date/time: 10/27/24 13:44 Requesting physician: Shanda Presley APRN Consult reason: Other (PFO) Reason For Visit: acute cva Narrative: We are consulted for PFO. This is a 64 year old female with history of prior stroke, hypertension, hyperlipidemia, type 2 diabetes mellitus who is admitted with an acute infarct in the left paramedian area of the carissa. Bubble study shows right to left interatrial shunt suggestive of small PFO. EKG shows sinus rhythm, LVH with secondary STTW abnormality. Tele thus far without any arrhythmias. No history of AFIB. Review of Systems Review of Systems: All systems reviewed & are unremarkable except as noted in HPI and below (HPI) [facility] Past Medical History Medical History Cerebrovascular accident Seasonal allergies Hypertension Chronic pain of left knee Benign positional vertigo (~09/2022) Vitamin D deficiency Anemia (~1979) Hyperlipidemia (~2014) Type 2 diabetes mellitus (~2014) Surgical History Surgical History History of orthopedic surgery Family History Family History Sibling Diabetes mellitus Colon polyp Mother Hypertension Cardiovascular disease Sibling Family history of thyroid disease Malignant neoplasm of prostate Diabetes mellitus, Onset Age: 60 Carcinoma of colon, Onset Age: 60 Father Hypertension Family history of lung cancer Mother Hypertension, Onset Age: 52 Family history of coronary artery disease Family history of cardiovascular disease, Onset Age: 52 Social History Social History Social History: Surrogate medical decision maker: Tata Hurt, sibling. Code status: Full code. Smoking status: Never smoker Second hand tobacco smoke exposure: No Alcohol intake: never Substance use: never Substance use type: does not use Do You Feel Safe in your Home?: Yes Lack of Transportation: No Lack of Food: Often True Current Housing: I Have Housing Concerned About Future Housing: YES Difficulty Paying Gas/Electric Bills: YES Difficulty Paying for Meds: YES Currently Unemployed: No Education: Associate Degree Difficulty w/ Childcare or Family Care: No Living arrangements: with family Occupation/Education: occupation Additional occupation/education comments: Retired, works part-time at [employer] care concerns: No Agree to blood products: Yes Meds Home Medications and Allergies Home Medications ?Medication ?Instructions ?Recorded ?Confirmed ?Type aspirin 81 mg tablet,delayed 81 mg PO DAILY 07/27/19 10/25/24 History release (Adult Aspirin Regimen) blood sugar diagnostic (Blood #100 ea 08/16/20 10/25/24 Rx Glucose Test strips) blood-glucose meter (OneTouch #1 ea 08/16/20 10/25/24 Rx Verio Flex Start kit) lancets 28 gauge (Comfort EZ #100 ea 08/16/20 10/25/24 Rx Lancets) meloxicam 7.5 mg tablet 7.5 mg PO DAILY #30 tabs 09/10/22 10/25/24 Rx amlodipine 5 mg tablet 5 mg PO DAILY #90 tabs 10/03/22 10/25/24 Rx lisinopril 20 1 tablet PO DAILY #90 tabs 10/03/22 10/25/24 Rx mg-hydrochlorothiazide 25 mg tablet fluticasone propionate 50 1 spray intranasal DAILY PRN 11/20/22 10/25/24 History mcg/actuation nasal allergy symptoms spray,suspension (Flonase Allergy Relief) ezetimibe 10 mg tablet (Zetia) 10 mg PO DAILY #90 tabs 04/24/23 10/25/24 Rx meclizine 25 mg tablet 25 mg PO TID PRN dizziness #30 tabs 11/18/23 10/25/24 Rx atorvastatin 80 mg tablet (Lipitor) 80 mg PO DAILY 10/25/24 10/25/24 History insulin glargine 100 unit/mL (3 40 unit subcut DAILY 10/25/24 10/25/24 History mL) subcutaneous pen (Lantus Solostar U-100 Insulin) Allergies Allergy/AdvReac Type Severity Reaction Status Date / Time pineapple Allergy Severe HIVES/ANAPH Verified 10/25/24 11:06 YLAXIS metformin Allergy Unknown Nausea and Verified 10/25/24 11:06 Vomiting Sulfa (Sulfonamide Allergy Unknown Unknown Verified 10/25/24 11:06 Antibiotics) SEA-[place] SEAFOOD Allergy Severe ANAPHYLAXIS Uncoded 10/25/24 11:06 Vital Signs Vital Signs - 24 hr 10/26/24 14:00 10/26/24 16:00 10/26/24 20:00 Temperature 36.4 C Pulse Rate 76 75 61 Respiratory Rate 18 Blood Pressure 132/63 Pulse Oximetry 100 10/26/24 20:39 10/26/24 23:38 10/27/24 04:00 Temperature 36.4 C L Pulse Rate 68 80 69 Respiratory Rate 16 Blood Pressure 122/73 Pulse Oximetry 99 10/27/24 04:06 10/27/24 08:00 10/27/24 12:00 Temperature 36.4 C Pulse Rate 55 L 72 77 Respiratory Rate 16 Blood Pressure 116/65 Pulse Oximetry 99 Exam Const: General: no acute distress HENMT: Mouth: Yes moist mucous membranes Eyes: General: appearance normal, both eyes and all related structures Sclera: sclerae normal Resp: Effort & Inspection: normal respiratory effort Cardio: Rate: regular rate Rhythm: regular rhythm Heart sounds: no murmurs Skin: General skin exam: normal color Neuro: Speech: normal speech Psych: Mental Status: mental status grossly normal Affect: normal affect Results Labs and Meds 10/27/24 06:06 10/27/24 06:06 Lab results: CBC 10/27/24 Range/Units 06:06 WBC 6.2 (4.5-10.0) K/mm3 RBC 3.81 L (4.2-5.4) M/mm3 Hgb 11.3 L (12.0-15.0) g/dL Hct 36.3 L (37.0-47.0) % Plt Count 328 (150-375) k/mm3 Comprehensive Metabolic Panel 10/27/24 Range/Units 06:06 Sodium 137 (137-145) mmol/L Potassium 4.1 (3.4-5.0) mmol/L Chloride 103 (98-107) mmol/L Carbon Dioxide 28 (22-30) mmol/L BUN 22 H (7-17) mg/dL Creatinine 1.19 H (0.7-1.0) mg/dL Glucose 138 H (65-110) mg/dL Calcium 9.3 (8.4-10.2) mg/dL Intake and Output 10/26/24 10/27/24 10/27/24 23:59 07:59 15:59 Intake Total 1740 100 118 Balance 1740 100 118 Intake: Oral 1740 100 118 Other: # Unmeasured Voids 2 1 Patient Weight 10/27/24 23:59 Weight 66.1 kg
[2024-10-27 14:00] VITALS: BP 133/72; PULSE 79; RESP 16; TEMP 36.4; O2SAT 100
[2024-10-27 14:30] VITALS: BMI 23.5
--- NOTE | 2024-10-27 14:35 | PC.NURSE ---
Matting Press Tender at bedside.
--- NOTE | 2024-10-27 15:11 | WPDNEUROPN ---
Subjective Date/time seen: 10/27/24 15:11 Interval history: Seen for the acute infarct in left paramedian area of the carissa found to have 60% stenosis on the left side of the carotid as per the CTA., In addition to history of hypercholesterolemia and cholesterol of 267 with a LD of 127 and HDL 80 even though patient receiving atorvastatin 80mg daily along with the diabetic care that is insulin 40units subQ daily she was receiving aspirin 81mg daily Plavix have been added for the next 6 weeks the echocardiogram was ordered for the bubbles study which documented several bubbles shunt to the left side cardiac chambers suggestive of a small patent foramina ovale. Cardiology consultation was obtained and as per the recommendation likely incidental finding with no significant benefit of PFO closure more than 60 years of age but recommended 30 days event monitor at the time of discharge rule out the possibility of atrial fibrillation which obviously going to change the treatment from the anti-platelet medication to anticoagulation therapy and will be recommended strong rest of the exam remains unchanged Objective Data Vital Signs Vital Signs: Vital Signs - 24 hr 10/26/24 16:00 10/26/24 20:00 10/26/24 20:39 Temperature 36.4 C L Pulse Rate 75 61 68 Respiratory Rate 16 Blood Pressure 122/73 Pulse Oximetry 99 10/26/24 23:38 10/27/24 04:00 10/27/24 04:06 Temperature 36.4 C Pulse Rate 80 69 55 L Respiratory Rate 16 Blood Pressure 116/65 Pulse Oximetry 99 10/27/24 08:00 10/27/24 12:00 10/27/24 14:00 Temperature 36.4 C Pulse Rate 72 77 79 Respiratory Rate 16 Blood Pressure 133/72 Pulse Oximetry 100 Intake/Output Intake/Output: Intake & Output 10/24/24 10/25/24 10/26/24 10/27/24 23:59 23:59 23:59 23:59 Intake Total 2220 218 Balance 2220 218 Meds/Results Medications: Active Medications Generic Name Dose Route Start Last Admin Trade Name Freq PRN Reason Stop Dose Admin Acetaminophen 650 mg 10/25/24 15:54 Acetaminophen 325 Mg Tablet PO Q4H PRN Mild Pain (1-3) or Fever Hydrocodone Bitart/Acetaminophen 1 tab 10/25/24 15:54 Hydrocodone/Acetaminophen (*Crx) 5-325 Mg Tablet PO Q4H PRN Pain Rated 4-6 Amlodipine Besylate 5 mg 10/26/24 09:00 10/27/24 08:24 Amlodipine Besylate 5 Mg Tablet PO 5 mg DAILY OSCAR Administration Aspirin 81 mg 10/26/24 09:00 10/27/24 08:24 Aspirin 81 Mg Enteric Tablet PO 81 mg DAILY OSCAR Administration Atorvastatin Calcium 80 mg 10/26/24 09:00 10/27/24 08:24 Atorvastatin 40 Mg Tablet PO 80 mg DAILY OSCAR Administration Clopidogrel Bisulfate 75 mg 10/26/24 09:00 10/27/24 08:24 Clopidogrel Bisulfate 75 Mg Tablet PO 75 mg QAM OSCAR Administration Dextrose 12.5 gm 10/25/24 20:23 Dextrose 50% 25 Gm/50 Ml Syringe IV PUSH PRN PRN Hypoglycemia Protocol Ezetimibe 10 mg 10/26/24 09:00 10/27/24 08:24 Ezetimibe 10 Mg Tablet PO 10 mg DAILY OSCAR Administration Fluticasone Propionate 1 spray 10/25/24 20:25 Fluticasone Propionate 0.05% Na Spr 16 Gm Btl (*Bkc) NASAL DAILY PRN allergy symptoms Glucagon 1 mg 10/25/24 20:23 Glucagon For Inj 1 Mg Vial IM PRN PRN Hypoglycemia Protocol Glucose 15 gm 10/25/24 20:23 Glucose Oral Gel 15 Gm Of Glucse In 37.5 Gm Tube PO PRN PRN Hypoglycemia Protocol Hydrochlorothiazide 25 mg 10/26/24 09:00 10/26/24 07:55 Hydrochlorothiazide 25 Mg Tablet PO 25 mg DAILY OSCAR Administration Dextrose 1,000 mls @ 100 mls/hr 10/25/24 20:23 Dextrose 5% 1,000 Ml IVPB PRN PRN Hypoglycemia Protocol Insulin Aspart 1 - 3 units 10/25/24 21:00 10/26/24 20:29 Insulin Aspart (*Bkc) 100 Units/Ml SUB-Q Not Given HS OSCAR Protocol Insulin Aspart 3 - 6 units 10/26/24 08:00 10/27/24 12:22 Insulin Aspart (*Bkc) 100 Units/Ml SUB-Q Not Given TIDWM [facility] Protocol Insulin Glargine 40 units 10/26/24 09:00 10/27/24 08:30 Insulin Glargine (*Bkc) 100 Units/Ml SUB-Q 40 units DAILY OSCAR Administration Lisinopril 20 mg 10/26/24 09:00 10/26/24 07:55 Lisinopril 20 Mg Tablet PO 20 mg DAILY OSCAR Administration Meclizine HCl 25 mg 10/26/24 09:03 Meclizine Hcl 25 Mg Tablet PO TID PRN dizziness Ondansetron HCl 4 mg 10/25/24 15:54 Ondansetron Inj 4 Mg/2 Ml Vial IV PUSH Q4H PRN Nausea Perflutren Lipid Microsphere 0 ml 10/25/24 20:23 Perflutren Lipid Microspheres 1.5 Ml Vial Diluted To 10 Ml Total Volume IV PUSH 10/28/24 20:24 ONCE PRN adequate visualization Protocol Radiology Results: ITS Impressions Chest X-Ray 10/25/24 13:07 IMPRESSION: 1. Mild discoid atelectasis/scarring at the bilateral lower lung zones. No other acute cardiopulmonary disease. Head/Neck CTA 10/25/24 15:04 IMPRESSION: 1. Normal CTA head. 2. CTA neck. Percent stenosis per NASCET criteria is 60% on the left side. 3. Bilateral thyroid nodules. Further evaluation advised Brain MRI 10/26/24 12:06 IMPRESSION: 1. Acute infarct in the left paramedian area of the carissa. 2. No other acute abnormality seen. Labs Labs: Laboratory Results - last 24 hr 10/26/24 10/26/24 10/27/24 16:21 20:07 06:06 WBC 6.2 RBC 3.81 L Hgb 11.3 L Hct 36.3 L MCV 95.3 MCH 29.7 MCHC 31.1 L RDW 12.0 Plt Count 328 MPV 10.1 Sodium 137 Potassium 4.1 Chloride 103 Carbon Dioxide 28 Anion Gap 6 BUN 22 H Creatinine 1.19 H Estim Creat Clear Calc 39 Estimated GFR 45 L Glucose 138 H POC Capillary Glucose 155 H 166 H Calcium 9.3 10/27/24 10/27/24 07:52 11:56 WBC RBC Hgb Hct MCV MCH MCHC RDW Plt Count MPV Sodium Potassium Chloride Carbon Dioxide Anion Gap BUN Creatinine Estim Creat Clear Calc Estimated GFR Glucose POC Capillary Glucose 142 H 159 H Calcium
--- NOTE | 2024-10-27 15:26 | PM.DS ---
DS: Admitting Diagnosis Discharge Date 10/27/2024 Admitting Diagnosis CVA DS: Discharge Diagnosis Discharge Diagnosis (1) Cerebrovascular accident: Qualifiers: CVA mechanism: stenosis Precerebral and cerebral artery: carotid artery Laterality of affected vessel: left Qualified Code(s): I63.232 - Cerebral infarction due to unspecified occlusion or stenosis of left carotid arteries Code(s): I63.9 - Cerebral infarction, unspecified Status: Acute (2) PFO (patent foramen ovale): Code(s): Q21.12 - Patent foramen ovale Status: Acute (3) Left-sided carotid artery disease: Code(s): I77.9 - Disorder of arteries and arterioles, unspecified Status: Acute (4) Hypertension: Code(s): I10 - Essential (primary) hypertension Status: Acute (5) Hyperlipidemia: Onset Date: Qualifiers: Hyperlipidemia type: unspecified Qualified Code(s): E78.5 - Hyperlipidemia, unspecified Code(s): E78.5 - Hyperlipidemia, unspecified Status: Acute (6) Type 2 diabetes mellitus: Onset Date: Qualifiers: Diabetes mellitus complication status: without complication Diabetes mellitus oil heaterman insulin use: with fdc use Qualified Code(s): E11.9 - Type 2 diabetes mellitus without complications; Z79.4 - snf (current) use of insulin Code(s): E11.9 - Type 2 diabetes mellitus without complications Status: Acute (7) Thyroid nodule: Code(s): E04.1 - Nontoxic single thyroid nodule Status: Acute DS: Summary Hospital Course Reason for hospitalization: Right sided weakness Hospital Course: This is a pleasant 64-year-old female with history of vertigo, stroke, hypertension, dyslipidemia, and type 2 diabetes mellitus who presented to the emergency department with complaints of right-sided weakness. It is not unusual for her to have occasional paresthesias of the right foot and sometime yesterday afternoon she did notice some tingling in the foot and right leg. As the day progressed the right leg felt heavy and at time she felt as though she was dragging the leg while walking. She also felt that the right arm seemed to be a bit heavy as well and just before going to bed she was bringing able to the kitchen and was unable to keep a hold of it and it dropped to the ground. Her symptoms were still present today and a co-worker noticed them encouraged her to come in for evaluation. She denies vertigo, visual changes, facial droop, difficulty speaking and swallowing, palpitations, chest pain, shortness a breath, nausea, vomiting, and sweats. She does mention that she has been out of all of her medications for about 3 weeks as she is currently between doctors. Blood pressures have been running high and she reports that even when she takes her medications that they are typically 160 to 170 systolic or above. In the ED: Blood pressure was 190/88 on arrival; the remainder of her vital signs were stable. Labs were significant for creatinine of 1.0 weight and a glucose of 170. CTA of the head was normal. 60% stenosis of the left internal carotid artery was noted on CTA of the neck as well as bilateral thyroid nodules. EKG showed sinus rhythm with left ventricular hypertrophy and ST-T changes. ED physician spoke with the on-call neurologist who recommended loading the patient with Plavix and she is being admitted in this setting for further workup. Neurology and Cardiology consulted. Brain MRI on 10/26 showed Acute infarct in the left paramedian area of the carissa. Neurology recommended continue Aspirin 81 mg daily as well as Plavix 75mg PO for 6 weeks post discharge. Cardiology recommended ordering a 30 day cardiac event monitor for post-discharge to assess for possible atrial fibrillation as source of infarct. Cardiology also consulted for patent foramen ovale. Agree that given RoPE score of 2, stroke unlike attributed to PFO, and that the PFO is likely an incidental finding. They also state that the benefit of PFO closure in patients older than 60 is unclear. Neurology and Cardiology other okay with discharge at this time with continued Plavix PO. Worked with PT/OT, was able to progress greatly with independent transfers and SBA to independent gait, with no loss of balance with activity. Lab blood work otherwise unremarkable, vitals are stable. Patient stable for discharge at this time. Time Spent with Patient Time attestation: Total time spent providing and/or coordinating discharge services:45 mins Exam Narrative: General: Well-developed, nontoxic-appearing female sitting up in bed no acute distress. Weight: 66.4 kg. BMI: 23.6. HEENT: PERRL, EOMI. Sclera anicteric. Oral mucosa moist. Neck: Supple. Respiratory: Lungs are clear to auscultation bilaterally. Cardiovascular: Regular rate and rhythm with S1-S2. Gastrointestinal: Abdomen is soft, nontender, and nondistended with positive bowel sounds. No organomegaly. Skin: Warm and dry. No rash or lesions on limited exam. Extremities: No cyanosis, clubbing, or edema. Radial and pedal pulses intact. Neurological: Alert and oriented. Cranial nerves 2-12 are grossly intact. Speech is clear. No facial asymmetry. Normal strength and tone in Upper/Lower extremities on L side. Reports feeling stronger with less numbness in R hand/foot but states R foot still feels slightly heavy when walking. Psychiatric: Pleasant and cooperative with normal mood and affect. DS: Data Data Completed and Pending Labs on day of discharge: Labs from last 24 hours 10/27/24 10/27/24 10/27/24 11:56 07:52 06:06 WBC 6.2 RBC 3.81 L Hgb 11.3 L Hct 36.3 L MCV 95.3 MCH 29.7 MCHC 31.1 L RDW 12.0 Plt Count 328 MPV 10.1 Sodium 137 Potassium 4.1 Chloride 103 Carbon Dioxide 28 Anion Gap 6 BUN 22 H Creatinine 1.19 H Estim Creat Clear Calc 39 Estimated GFR 45 L Glucose 138 H POC Capillary Glucose 159 H 142 H Calcium 9.3 10/26/24 10/26/24 20:07 16:21 WBC RBC Hgb Hct MCV MCH MCHC RDW Plt Count MPV Sodium Potassium Chloride Carbon Dioxide Anion Gap BUN Creatinine Estim Creat Clear Calc Estimated GFR Glucose POC Capillary Glucose 166 H 155 H Calcium Discharge Plan Discharge Attending physician on discharge: Nic Peters Consulting providers: Nixon Chávez; Kacey Mohr; Nani Rangel Discharging Clinician: Nic Peters Anticipated Discharge Date/Time: 10/27/24 15:19 Patient Disposition: Home Activity: as tolerated Diet: as tolerated Discharge Instructions: Discharge disposition: Stable Take medications as prescribed Monitor blood pressures Return to the emergency department if he developed sudden shortness of breath, chest pain, nausea, vomiting, upset stomach or intractable diarrhea Return to the emergency department if you develop fever greater than 101.5 Follow-up with the primary care physician within 1-2 weeks You will be getting a prescription for Plavix 75mg for 6 weeks. Take this daily. You will be getting an order for a cardiac event monitor to be worn for 30 days after your discharge Thank you for choosing [facility] for your healthcare needs Patient Instructions: Antibiotic Form, Clopidogrel (By mouth) Patient Language: Citizen Of [place] Stand Alone Forms: General Discharge Information Follow-up/Referrals: PHYSICIAN,APPRAISAL ANALYST [Primary Care Provider] - Discharge Medications: New insulin glargine [Lantus U-100 Insulin] 100 unit/mL solution 20 unit subcut BID Qty: 10 0RF (DME) lancets 28 gauge misc See Rx Instructions .Route Qty: 100 0RF Rx Instructions: As directed (DME) blood-glucose meter Misc See Rx Instructions .Route Qty: 1 0RF Rx Instructions: As directed clopidogrel [Plavix] 75 mg tablet 75 mg PO DAILY Qty: 42 0RF Continued aspirin [Adult Aspirin Regimen] 81 mg tablet,delayed release (DR/EC) 81 mg PO DAILY fluticasone propionate [Flonase Allergy Relief] 50 mcg/actuation spray,suspension 1 spray intranasal DAILY PRN (Reason: allergy symptoms) Rx Instructions: administer into each nostril (DME) blood-glucose meter [OneTouch Verio Flex Start] Kit See Rx Instructions .ROUTE .MEDSUPPLY Qty: 1 0RF Rx Instructions: Use once daily (DME) Blood Glucose Test Strip See Rx Instructions .ROUTE .MEDSUPPLY Qty: 100 3RF Rx Instructions: Use one strip daily (DME) lancets [Comfort EZ Lancets] 28 gauge misc See Rx Instructions .ROUTE .MEDSUPPLY Qty: 100 3RF Rx Instructions: Use once daily meloxicam 7.5 mg tablet 7.5 mg PO DAILY Qty: 30 1RF lisinopril-hydrochlorothiazide 20-25 mg tablet 1 tablet PO DAILY Qty: 90 1RF amlodipine 5 mg tablet 5 mg PO DAILY Qty: 90 0RF atorvastatin [Lipitor] 80 mg tablet 80 mg PO DAILY insulin glargine [Lantus Solostar U-100 Insulin] 100 unit/mL (3 mL) insulin pen 40 unit subcut DAILY Rx Instructions: NEEDS APPOINTMENT FOR FURTHER REFILLS ezetimibe [Zetia] 10 mg tablet 10 mg PO DAILY Qty: 90 1RF meclizine 25 mg tablet 25 mg PO TID PRN (Reason: dizziness) Qty: 30 0RF Other Ambulatory Orders: [place] cardiac event monitor (Routine) Timeframe: 1 Month Location: Determined by Patient Ordered By: Karmen Freeman Date of admission: 10/25/24 18:14 Primary Care Provider: PHYSICIAN,APPRAISAL ANALYST Admitting Provider: Ingris Ford Attending physician on admission: Nic Peters Condition: Stable Quality VTE Prophylaxis VTE prophylaxis: mechanical ordered Hospitalist MIPS Heart Failure (Exclusion) Patient has history of Heart Transplant or Left Ventricular Assistive Device?: No IF YES, STOP HERE Heart Failure (Qualifier) Patient has current or prior documentation of LVEF less than or equal to 40%, or mod/servere depressed LVSF?: No IF NO, STOP HERE
[2024-10-27 16:00] VITALS: PULSE 72
[2024-10-27 17:10] LABS: Glucose Point of Care 98 mg/dl (65-105)
--- NOTE | 2024-11-05 14:52 | PCCDE ---
11/05/24 Courtesy DM follow up call placed, message left including direct call back number. FJ
== END 2024-10-27 17:48 | disposition home or self-care (01) | DRG 65 ==
LOC: ANHED 12:27 → ANH3MEDSUR 17:03
PROVIDERS: Nurse Practitioner Gerontology; Physician Assistant; Admitting Provider Internal Medicine; Emergency Provider Emergency Medicine; Visit Provider Physician Assistant
DX: I63.9 Cerebral infarction, unspecified (principal); G81.91 Hemiplegia, unspecified affecting right dominant side; Q21.12 Patent foramen ovale; I65.22 Occlusion and stenosis of left carotid artery; R47.81 Slurred speech; R29.707 NIHSS score 7; E78.5 Hyperlipidemia, unspecified; E11.9 Type 2 diabetes mellitus without complications; E04.1 Nontoxic single thyroid nodule; E55.9 Vitamin D deficiency, unspecified; G89.29 Other chronic pain; I10 Essential (primary) hypertension; M25.562 Pain in left knee; Z79.4 Long term (current) use of insulin; Z86.73 Personal history of transient ischemic attack (TIA), and cerebral infarction without residual deficits; Z79.82 Long term (current) use of aspirin
CPT/HCPCS: 36415; 70496; 70498; 70551; 71046; 80048; 80053; 80061; 81003; 82948; 83036; 83735; 85025; 85027; 93005; 93306; 96374; 96375; 97110; 97116; 97161; 97166; 97530; 97535; 99285; A9270; J1815; Q9967